=== PATIENT | male | born 1955 | race Caucasian/White ===

== ENCOUNTER 2016-12-22 00:13 | Observation (INO) | payer OTHER, MEDICARE ==
[2016-12-22] VITALS (10 sets, daily range): BP systolic 141–159; BP diastolic 62–70; PULSE 60–80; RESP 16–20; TEMP 98.4; O2SAT 94–99
[~2016-12-22] VITALS: Ht 167.6 cm; Wt 125.0 kg
[~2016-12-22 00:13] MED LIST: ASPI325T PO; FLUO10TA PO; GABA300C5 PO; IBUP-232 PO; METF500T PO; MORP1CAP63 PO; MULTTAB67 PO; NITR1SUB3 SL; OMEP20TA PO; PRAM0.5T PO; PRIN20TA2 PO; PROP20TA3 PO; SIMV80TA PO
[2016-12-22] MEDS ORDERED: MORP1TAB26 PO (00:28)
[2016-12-22] MEDS ORDERED: MORP1TAB24 PO (00:28)
[2016-12-22] MEDS ORDERED: MORP1TAB25 PO (00:28)
--- NOTE | 2016-12-22 00:44 | PD ---
HPI . Chest pain Chief Complaint: Chest Pain Time Seen by Provider: 00:15 Travel History International Travel<30 days: No Contact w/Intl Traveler<30days: No Traveled to known affect area: No History of Present Illness HPI Presents with chest pain that started about 6 PM. It has waxed and waned. He states that it seemed to occur every time he got up to go to the bathroom and then resolved or improved every time he got back to the couch. He denies any associated symptoms such as diaphoresis, nausea but is of breath. He used 3 old nitroglycerin at home with no relief. He was given one nitroglycerin by EMS and is now pain-free. PFSH Past Medical History Depression: Yes ("WITH PSYCHOTIC FEATURES") Heart Rhythm Problems: No Cardiac Catheterization: Yes (4 CATH, 5 STENTS) Cardiovascular Problems: Yes High Cholesterol: Yes Congestive Heart Failure: No Coronary Artery Disease: Yes Diabetes: Yes (PRE DIABETIC) Patient Takes Glucophage: Yes Diminished Hearing: No GERD: Yes Hypertension: Yes Musculoskeletal: Yes (LUMBAR DEGENERATIVE DISC DISEASE/RADICULOPATHY) Myocardial Infarction: Yes Tetanus Vaccination: < 5 Years Past Surgical History Coronary Artery Bypass Graft: No Coronary Stent: Yes (X5) Tonsillectomy: Yes Other Surgery: Yes (back sx) Family History Family Myocardial Infarction: No Social History Alcohol Use: No Tobacco Use: No (QUIT 8 YEARS AGO; SMOKED 3PPD X 40 YEARS) Substance Use: Yes (ETOH abuse in the past, hasn't drank in 20 yrs) Allergies-Medications (Allergen,Severity, Reaction): Coded Allergies: No Known Allergies (Unverified , 12/22/16) Reported Meds & Prescriptions Reported Meds & Active Scripts Active Pramipexole (Pramipexole Dihydrochloride) 0.5 Mg Tab 0.5 Mg PO BID Gabapentin 300 Mg Cap 300 Mg PO TID Fluoxetine (Fluoxetine HCl) 10 Mg Tab 10 Mg PO DAILY Simvastatin 80 Mg Tab 80 Mg PO HS Prinivil (Lisinopril) 20 Mg Tab 20 Mg PO BID Omeprazole 20 Mg Tab 40 Mg PO DAILY Metformin (Metformin HCl) 500 Mg Tab 500 Mg PO DAILY With a meal Reported Morphine ER (Morphine Sulfate) 15 Mg Tab 15 Mg PO HS Morphine ER (Morphine Sulfate) 30 Mg Tab 30 Mg PO AC BREAKFAST Nitroglycerin SL (Nitroglycerin) 0.4 Mg Subl 0.4 Mg SL DIRECTED PRN ONE TABLET UNDER THE TONGUE NEEDED FOR CHEST PAIN, MAY REPEAT EVERY FIVE MINUTES FOR A TOTAL OF 3 DOSES OR CALL 911 IF NO RELIEF Multiple Vitamin 1 Tab 1 Tab PO DAILY Ibuprofen 600 Mg Tab 600 Mg PO TID Aspirin 325 Mg Tab 325 Mg PO DAILY Review of Systems Except as stated in HPI: all other systems reviewed are Neg General / Constitutional: Positive: Other (no diaphoresis) Cardiovascular: Positive: Chest Pain or Discomfort Respiratory: No: Shortness of Breath Gastrointestinal: No: Nausea, Vomiting Physical Exam Narrative GENERAL: Healthy-appearing man who is currently in no acute distress. SKIN: Warm and dry. HEAD: Atraumatic. Normocephalic. EYES: Pupils equal and round. ENT: No nasal bleeding or discharge. Mucous membranes pink and moist. NECK: Trachea midline. Neck is supple. CARDIOVASCULAR: Regular rate and rhythm. He does have a systolic ejection murmur. RESPIRATORY: No accessory muscle use. Lungs are clear with full air movement throughout. GASTROINTESTINAL: Abdomen soft, non-tender, nondistended. MUSCULOSKELETAL: No obvious deformities. No edema. NEUROLOGICAL: Awake and alert. No obvious cranial nerve deficits. Motor grossly within normal limits. Normal speech. PSYCHIATRIC: Appropriate mood and affect; insight and judgment normal. Data Data Last Documented VS Vital Signs Date Time Temp Pulse Resp B/P Pulse Ox O2 Delivery O2 Flow Rate FiO2 12/22/16 00:52 68 18 156/62 99 Nasal Cannula 2 12/22/16 00:18 98.4 Orders Basic Metabolic Panel (Bmp) (12/22/16 00:34) Ckmb (Isoenzyme) Profile (12/22/16 00:34) Complete Blood Count With Diff (12/22/16 00:34) Magnesium (Mg) (12/22/16 00:34) Prothrombin Time / Inr (Pt) (12/22/16 00:34) Act Partial Throm Time (Ptt) (12/22/16 00:34) Troponin I (12/22/16 00:34) Chest, Single Ap (12/22/16 00:34) Ecg Monitoring (12/22/16 00:34) Bilateral Bp Monitoring (12/22/16 00:34) Iv Access Insert/Monitor (12/22/16 00:34) Oximetry (12/22/16 00:34) Oxygen Administration (12/22/16 00:34) Nitroglycerin 2% Oint (Nitroglycerin 2% (12/22/16 00:45) Sodium Chloride 0.9% Flush (Ns Flush) (12/22/16 00:45) CKMB (12/22/16 00:48) CKMB% (12/22/16 00:48) Admit Order (Ed Use Only) (12/22/16 ) Orderly / Telemetry (12/22/16 01:58) Electrocardiogram (12/22/16 01:00) Electrocardiogram (12/22/16 07:00) ^ Saline Lock (12/22/16 01:58) Resp Oxygen Karsten C Titrat 1-4 L (12/22/16 ) ^ Notify Dr: Other (12/22/16 01:58) Sodium Chloride 0.9% Flush (Ns Flush) (12/22/16 09:00) Sodium Chloride 0.9% Flush (Ns Flush) (12/22/16 02:00) Labs Laboratory Tests Test 12/22/16 00:48 White Blood Count 8.8 TH/MM3 Red Blood Count 3.89 MIL/MM3 Hemoglobin 11.4 GM/DL Hematocrit 33.5 % Mean Corpuscular Volume 86.2 FL Mean Corpuscular Hemoglobin 29.4 PG Mean Corpuscular Hemoglobin 34.1 % Concent Red Cell Distribution Width 13.9 % Platelet Count 259 TH/MM3 Mean Platelet Volume 8.0 FL Neutrophils (%) (Auto) 75.7 % Lymphocytes (%) (Auto) 15.1 % Monocytes (%) (Auto) 6.5 % Eosinophils (%) (Auto) 2.3 % Basophils (%) (Auto) 0.4 % Neutrophils # (Auto) 6.7 TH/MM3 Lymphocytes # (Auto) 1.3 TH/MM3 Monocytes # (Auto) 0.6 TH/MM3 Eosinophils # (Auto) 0.2 TH/MM3 Basophils # (Auto) 0.0 TH/MM3 CBC Comment DIFF FINAL Differential Comment Prothrombin Time 11.3 SEC Prothromb Time International 1.0 RATIO Ratio Activated Partial 22.2 SEC Thromboplast Time Sodium Level 136 MEQ/L Potassium Level 4.0 MEQ/L Chloride Level 100 MEQ/L Carbon Dioxide Level 29.7 MEQ/L Anion Gap 6 MEQ/L Blood Urea Nitrogen 11 MG/DL Creatinine 1.01 MG/DL Estimat Glomerular Filtration 75 ML/MIN Rate Random Glucose 110 MG/DL Calcium Level 8.7 MG/DL Magnesium Level 2.0 MG/DL Total Creatine Kinase 147 U/L Troponin I LESS THAN 0.02 NG/ML MDM Medical Decision Making Medical Screen Exam Complete: Yes Emergency Medical Condition: Yes Medical Record Reviewed: Yes (patient was evaluated here in 2012 at the chest pain center. He has a known history of coronary artery disease and has 4 stents.) Interpretation(s) EKG shows a sinus rhythm with a ventricular rate of 68. No ST segment elevation or depression. Differential Diagnosis Differential diagnosis of chest pain includes but is not limited to musculoskeletal pain, pulmonary embolism, acute coronary syndrome, pneumonia, pleurisy Narrative Course Patient presents for evaluation of chest pain. The chest pain was completely resolved with a single sublingual nitroglycerin. Patient has known coronary artery disease. CBC & BMP Diagram 12/22/16 00:48 Troponin is less than 0.02. Total CK is 147. Chest x-ray is negative for acute process. Critical Care Narrative Aggregate critical care time was 45 minutes. Time to perform other separately billable procedures was not included in the critical care time. My time did not include minutes spent treating any other patients simultaneously or on activities that did not directly contribute to the patient's treatment. The services I provided to this patient were to treat and/or prevent clinically significant deterioration due to cardiac dysrhythmia, cardiac disability I provided critical care services requiring my management, as noted below: Chart data review, documentation time, medication orders and management, vital sign assessments/reviewing monitor data, ordering and reviewing lab tests, ordering and interpreting/reviewing x-rays and diagnostic studies, care of the patient and discussion of the patient with the admitting physicians Diagnosis Primary Impression: Chest pain Qualified Code: R07.9 - Chest pain, unspecified type Admitting Information Admitting Physician Requests: Observation Condition: Stable Ivy Martin MD Dec 22, 2016 00:44
[2016-12-22] MEDS ORDERED: SODIUM CHLORIDE 0.9% FLUSH 5 ML FLUSH IVF PRN ×2 (00:45→02:00)
[2016-12-22] MEDS ORDERED: NITROGLYCERIN 2% OINT 1 GM PACKET TOP ONE (00:45)
[2016-12-22 00:52] LABS: AUTOMATED NEUTROPHIL # 6.7 TH/MM3 (1.8-7.7); BASOPHIL % 0.4 % (0.0-2.0); EOSINOPHIL # 0.2 TH/MM3 (0-0.4); EOSINOPHIL % 2.3 % (0.0-4.0); HEMATOCRIT 33.5 % (39.0-51.0); HEMO FLAGS DIFF FINAL; LYMPH % 15.1 % (9.0-44.0); LYMPHOCYTE # 1.3 TH/MM3 (1.0-4.8); MEAN CELL VOLUME 86.2 FL (80.0-100.0); MEAN CORPUSCULAR HEMOGLOBIN 29.4 PG (27.0-34.0); MEAN CORPUSCULAR HGB CONC 34.1 % (32.0-36.0); MONO % 6.5 % (0.0-8.0); NEUT % 75.7 % (16.0-70.0); PLATELET COUNT 259 TH/MM3 (150-450); RED BLOOD COUNT 3.89 MIL/MM3 (4.50-5.90); RED CELL DISTRIBUTION WIDTH 13.9 % (11.6-17.2); WHITE BLOOD COUNT 8.8 TH/MM3 (4.0-11.0)
--- NOTE | 2016-12-22 01:02 | RADRPT ---
EXAM DATE/TIME: 12/22/2016 00:34 [facility] COMPARISON: CHEST SINGLE AP, September 22, 2013, 10:17. INDICATIONS : Chest pain. MEDICAL HISTORY : Myocardial infarction. SURGICAL HISTORY : Coronary artery stent. ENCOUNTER: Initial ACUITY: 1 day PAIN SCORE: 6/10 LOCATION: Bilateral chest FINDINGS: The cardiac silhouette is enlarged in transverse diameter. The lungs are free of acute parenchymal op acity. No effusions are identified. Osseous structures are intact. CONCLUSION: Cardiomegaly. No acute cardiopulmonary disease. Chalo Garduno MD on December 22, 2016 at 1:00 Board Certified Radiologist. This report was verified electronically.
[2016-12-22 01:14] LABS: APTT (PATIENT) 22.2 SEC (24.3-30.1); PROTHROMBIN TIME - PATIENT 11.3 SEC (9.8-11.6)
[2016-12-22 01:20] LABS: ANION GAP 6 MEQ/L (5-15); BICARBONATE 29.7 MEQ/L (21.0-32.0); BLOOD UREA NITROGEN 11 MG/DL (7-18); CHLORIDE 100 MEQ/L (98-107); GLOMERULAR FILTRATION RATE 75 ML/MIN (>89); SODIUM (NA) 136 MEQ/L (136-145)
[2016-12-22 01:24] LABS: CREATINE KINASE 147 U/L (39-308)
[2016-12-22 02:20] LABS: CKMB 2.8 NG/ML (0.5-3.6)
[2016-12-22 06:36] LABS: CREATINE KINASE 143 U/L (39-308)
[2016-12-22 06:48] LABS: CKMB 2.5 NG/ML (0.5-3.6)
[2016-12-22] MEDS ORDERED: SODIUM CHLORIDE 0.9% FLUSH 5 ML FLUSH IVF SCH (09:00)
[2016-12-22] MEDS ORDERED: GLUCAGON 1 MG/ML VIAL IM/SQ PRN (09:15)
[2016-12-22] MEDS ORDERED: DEXTROSE 50% IN WATER 50 ML VIAL(D50) IV PRN (09:15)
[2016-12-22 09:28] LABS: CREATINE KINASE 157 U/L (39-308)
[2016-12-22] MEDS ORDERED: LIDOCAINE VISCOUS 2% SOLN 15 ML UDC PO ONE (09:30)
--- NOTE | 2016-12-22 09:31 | HHI.HP ---
HPI Primary Care Physician Nitesh Santos Chief Complaint Chest pain History of Present Illness This is a 61-year-old male that presents to the ED via [facility] with a complaint of chest discomfort. Began 6:00 last evening while watching television. This in the center of his chest. It radiates upwards into his throat area. It is worsened when he sits up and improves when he lies down. He tried Tums without relief. He tried nitroglycerin without relief. He had no associated shortness with nausea or diaphoresis. The pain is worse level is a 10 out of 10. Currently the pain is a 2 out of 10. He does have history of CAD. He states he had an FL 8 years ago while in [place]. He had 4 stents within [address] Jem pardo and last saw him about 4 months ago. He cannot recall his last stress test or heart catheterization. His symptoms do not feel similar to when he had a myocardial infarction. Review of Systems General: Patient denies fevers, chills recent, and recent travel HEENT: Patient denies headache, sore throat, difficulty swallowing. Cardiovascular: Has the chest discomfort as mentioned above. Denies sensation of heart beating rapidly or irregularly. Denies diaphoresis. No syncope. Respiratory: Denies shortness of breath or inspirational chest discomfort. Denies coughing wheezing or hemoptysis. GI: Patient denies nausea, vomiting, diarrhea, abdominal pain, bloody stools. Musculoskeletal: Patient denies joint pain or edema. Denies calf pain or edema. Planes of chronic back pain. Neurovascular: Patient denies numbness, tingling, weakness in extremities. Denies headache. Endocrine: Denies polyuria and polydipsia. Hematologic: Denies easy bruising. Skin: Denies rash or itching. Past Family Social History Allergies: Coded Allergies: No Known Allergies (Unverified , 12/22/16) Past Medical History CAD with a total of 4 stents 8 years ago. Hypertension, diabetes, hyperlipidemia, chronic back pain, obesity. He was a past smoker but quit 8 years ago. Past Surgical History Heart catheterizations with stenting. Bilateral total knee replacements. Right carpal tunnel release. Tonsillectomy and back surgeries. Reported Medications Reported Meds & Active Scripts Active Pramipexole (Pramipexole Dihydrochloride) 0.5 Mg Tab 0.5 Mg PO BID Gabapentin 300 Mg Cap 300 Mg PO TID Fluoxetine (Fluoxetine HCl) 10 Mg Tab 10 Mg PO DAILY Simvastatin 80 Mg Tab 80 Mg PO HS Prinivil (Lisinopril) 20 Mg Tab 20 Mg PO BID Omeprazole 20 Mg Tab 40 Mg PO DAILY Metformin (Metformin HCl) 500 Mg Tab 500 Mg PO DAILY With a meal Reported Morphine ER (Morphine Sulfate) 15 Mg Tab 15 Mg PO HS Morphine ER (Morphine Sulfate) 30 Mg Tab 30 Mg PO AC BREAKFAST Nitroglycerin SL (Nitroglycerin) 0.4 Mg Subl 0.4 Mg SL DIRECTED PRN ONE TABLET UNDER THE TONGUE NEEDED FOR CHEST PAIN, MAY REPEAT EVERY FIVE MINUTES FOR A TOTAL OF 3 DOSES OR CALL 911 IF NO RELIEF Multiple Vitamin 1 Tab 1 Tab PO DAILY Ibuprofen 600 Mg Tab 600 Mg PO TID Aspirin 325 Mg Tab 325 Mg PO DAILY Active Ordered Medications Current Medications Medications (Trade) Dose Ordered Sig/Paco Route Start Time Stop Time Status Last Admin (NS Flush) 2 ml UNSCH PRN IVF 12/22/16 00:45 (NS Flush) 2 ml BID IVF 12/22/16 09:00 12/22/16 08:51 (NS Flush) 2 ml UNSCH PRN IVF 12/22/16 02:00 (PROzac) 10 mg DAILY PO 12/22/16 09:15 UNV (Neurontin) 300 mg TID PO 12/22/16 13:00 UNV (Prinivil) 20 mg BID PO 12/22/16 09:15 UNV (Oramorph Sr) 15 mg HS PO 12/22/16 21:00 UNV (Protonix) 40 mg DAILY PO 12/22/16 09:15 UNV (Mirapex) 0.5 mg BID PO 12/22/16 09:15 UNV Non-Formulary Medication 80 mg HS PO 12/22/16 21:00 UNV (Aspirin) 325 mg DAILY PO 12/22/16 09:15 UNV (Xylocaine 2% Viscous) 10 ml STAT ONCE PO 12/22/16 09:30 12/22/16 09:31 ( Liq) 10 ml NOW ONCE PO 12/22/16 09:15 12/22/16 09:16 UNV (Mag-Al Plus Susp Liq) 30 ml STAT ONCE PO 12/22/16 09:15 12/22/16 09:16 UNV (D50w (Vial) Inj) 25 ml UNSCH PRN IV 12/22/16 09:15 UNV (Glucagon Inj) 1 mg UNSCH PRN IM/SQ 12/22/16 09:15 Family History His father had CAD. Social History He quit smoking 8 years ago but prior to that he smoked 2-3 packs of cigarettes a day for 25 years. He denies alcohol and illicit drugs. He has been for 43 years. He is disabled secondary to his back issues. Physical Exam Vital Signs Vital Signs Date Time Temp Pulse Resp B/P Pulse Ox O2 Delivery O2 Flow Rate FiO2 12/22/16 08:30 16 94 Room Air 12/22/16 05:14 60 17 154/70 97 Nasal Cannula 2 12/22/16 02:46 97 Nasal Cannula 2.00 12/22/16 02:00 71 18 156/62 97 Nasal Cannula 2 12/22/16 00:52 68 18 156/62 99 Nasal Cannula 2 12/22/16 00:42 18 97 Room Air 12/22/16 00:42 97 Nasal Cannula 2 12/22/16 00:22 69 18 96 Room Air 12/22/16 00:18 98.4 69 16 141/65 95 Physical Exam GENERAL: This is a well-nourished, well-developed patient, in no apparent distress. Patient speaks in clear complete sentences. Patient is pleasant. Patient is obese at 125 kg. HEENT: Head is atraumatic and normocephalic. Neck is supple without lymphadenopathy and trachea is midline. No JVD. There is a left carotid bruit. CARDIOVASCULAR: Regular rate and rhythm without gallops or rubs. There is grade 2 systolic murmur best heard left sternal border. RESPIRATORY: Clear to auscultation. Breath sounds equal bilaterally. No wheezes , rales, or rhonchi. Chest wall is nontender. No use of accessory muscles. GASTROINTESTINAL: Abdomen is nontender, nondistended. Abdomen soft. No obvious pulsatile mass or bruit. No CVA tenderness. Strong femoral pulses bilaterally. Normal bowel sounds in all quadrants. MUSCULOSKELETAL: Patient is moving upper and lower extremities freely. No calf tenderness or edema, no Homans sign. Strong pulses in upper and lower extremities. There is discomfort with movement of his lower back which is chronic. NEUROLOGICAL: Patient is alert and oriented. Cranial nerves 2-12 are grossly intact. No focal deficits and speech is clear. SKIN: No rash and turgor is normal. Laboratory Laboratory Tests Test 12/22/16 12/22/16 00:48 05:48 White Blood Count 8.8 Red Blood Count 3.89 Hemoglobin 11.4 Hematocrit 33.5 Mean Corpuscular Volume 86.2 Mean Corpuscular Hemoglobin 29.4 Mean Corpuscular Hemoglobin 34.1 Concent Red Cell Distribution Width 13.9 Platelet Count 259 Mean Platelet Volume 8.0 Neutrophils (%) (Auto) 75.7 Lymphocytes (%) (Auto) 15.1 Monocytes (%) (Auto) 6.5 Eosinophils (%) (Auto) 2.3 Basophils (%) (Auto) 0.4 Neutrophils # (Auto) 6.7 Lymphocytes # (Auto) 1.3 Monocytes # (Auto) 0.6 Eosinophils # (Auto) 0.2 Basophils # (Auto) 0.0 CBC Comment DIFF FINAL Differential Comment Prothrombin Time 11.3 Prothromb Time International 1.0 Ratio Activated Partial 22.2 Thromboplast Time Sodium Level 136 Potassium Level 4.0 Chloride Level 100 Carbon Dioxide Level 29.7 Anion Gap 6 Blood Urea Nitrogen 11 Creatinine 1.01 Estimat Glomerular Filtration 75 Rate Random Glucose 110 Calcium Level 8.7 Magnesium Level 2.0 Total Creatine Kinase 147 143 Creatine Kinase MB 2.8 2.5 Troponin I LESS THAN 0.02 LESS THAN 0.02 Result Diagram: 12/22/16 0048 12/22/16 0048 Imaging Last Impressions Chest X-Ray 12/22/16 0034 Signed Impressions: Service Date/Time: Thursday, December 22, 2016 00:34 - CONCLUSION: Cardiomegaly. No acute cardiopulmonary disease. Chalo Garduno MD Course EKGs have sinus rhythm without significant ST segment depressions or elevations. Assessment and Plan Assessment and Plan * Chest pain: Patient had serial cardiac enzymes and EKGs for ruling out purposes. He will be seen by Dr. Monzon of cardiology and the chest pain center. He will undergo a Lexiscan. He'll be discharged home with instructions to follow-up with his physicians if his stress test were to be nonischemic. * CAD: Patient states he had an FL 8 years ago. He states he has 4 cardiac stents. This will be reassessed for stress testing. He will need to continue his medications and follow-up with Dr. Parish. * Hypertension: Continue current medication. * Hyperlipidemia: Continue current medications. * Diabetes: Hold metformin at this time. He'll be covered with sliding scale coverage. He will need to follow diabetic and resume his medication discharge. * Chronic back pain: Continue current medication and follow-up with his PCP. * Obesity: Patient has been counseled on the importance of smoking cessation. Juan Sidhu Dec 22, 2016 09:31
[2016-12-22 09:41] LABS: CKMB 2.4 NG/ML (0.5-3.6)
[2016-12-22] MEDS ORDERED: ATROPINE/SCOPOLAM/HYOSCYAM/PB ELIXIR 10 ML CUP PO ONE (10:00)
[2016-12-22] MEDS ORDERED: PRAMIPEXOLE DIHYDROCHLORIDE 0.25 MG TAB PO SCH (10:00)
[2016-12-22] MEDS ORDERED: LISINOPRIL 20 MG TAB PO SCH (10:00)
[2016-12-22] MEDS ORDERED: ASPIRIN 325 MG TAB PO SCH (10:00)
[2016-12-22] MEDS ORDERED: ALUMINUM/MAGNESIUM/SIMETH 30 ML CUP PO ONE (10:00)
[2016-12-22] MEDS ORDERED: PANTOPRAZOLE SOD 40 MG DELAYED RELEASE TAB PO SCH (10:00)
[2016-12-22] MEDS ORDERED: FLUoxetine HCL 10 MG CAP PO SCH (10:00)
[2016-12-22] MEDS ORDERED: INSULIN ASPART SUPPLEMENTAL SCALE SQ SCH (11:00)
[2016-12-22] MEDS ORDERED: REGADENOSON INJ 0.4 MG/5 ML SYR ONE (11:53)
[2016-12-22] MEDS ORDERED: GABAPENTIN 300 MG CAP PO SCH (13:00)
--- NOTE | 2016-12-22 13:03 | RADRPT ---
EXAM DATE/TIME: 12/22/2016 11:19 [facility] COMPARISON: MYOCARDIAL PERF PHARM SPECT, GATED W/EF, September 23, 2013, 9:14. INDICATIONS : Mid chest pain for one day. Angina. DOSE: 35.0 mCi Tc99m Myoview at stress. 11.0 mCi Tc99m Myoview at rest. 0.4 mg Lexiscan STRESS SYMPTOMS: None. EJECTION FRACTION: 60% MEDICAL HISTORY : Cardiovascular disease. Hypertension. Gastroesophageal reflux disease. SURGICAL HISTORY : Coronary artery stent. Tonsillectomy. ENCOUNTER: Initial ACUITY: 1 day PAIN SCALE: 5/10 LOCATION: Midsternal chest TECHNIQUE: The patient underwent pharmacologic stress with infusion of prescribed dose. Continuous ECG tracing was monitored during stress. Gated SPECT imaging was performed after stress and conventional SPECT i maging was performed at rest. The examination was performed on a SPECT/CT scanner, both attenuation and non-corrected datasets were reviewed. FINDINGS: DISTRIBUTION: The maximum perfused segment at stress is in the lateral wall. PERFUSION STUDY: The pattern of perfusion at stress is within normal limits. GATED STUDY: There is intact wall motion and thickening without hypokinetic or dyskinetic segments. CONCLUSION: No reversible perfusion defects. No focal wall motion abnormalities. Ejection fraction within normal limits. RISK CATEGORY: 1- Low Risk. Shiv Mesa MD on December 22, 2016 at 12:54 Board Certified Radiologist. This report was verified electronically.
--- NOTE | 2016-12-22 14:19 | EKG ---
Date Performed: 12/22/2016 Time Performed: 05:42:19 PTAGE: 61 years EKG: Sinus rhythm Compared to previous tracing, T wave changes have improved NORMAL ECG PREVIOUS TRACING : 12/22/2016 00.22 DOCTOR: Ritchie Monzon Interpretating Date/Time 12/22/2016 15:20:56
--- NOTE | 2016-12-22 14:19 | EKG ---
Date Performed: 12/22/2016 Time Performed: 00:22:06 PTAGE: 61 years EKG: Sinus rhythm NONSPECIFIC T-WAVE ABNORMALITY Compared to previous tracing, slight T wave changes are new. BORDERLI NE ECG PREVIOUS TRACING : 03/01/2016 11.13 DOCTOR: Ritchie Monzon Interpretating Date/Time 12/22/2016 15:20:38
--- NOTE | 2016-12-22 14:49 | HHI.DCPOC ---
Discharge Care Plan Diagnosis: (1) Chest pain (2) Coronary artery disease (3) H/O heart artery stent (4) Hypertension (5) Hyperlipidemia (6) DM (diabetes mellitus) (7) HTN (hypertension) (8) Hyperlipidemia (9) Chronic back pain (10) Obesity Goals to Promote Your Health * To prevent worsening of your condition and complications * To maintain your health at the optimal level Directions to Meet Your Goals Take your medications as prescribed Follow your dietary instruction Follow activity as directed Keep your appointments as scheduled Take your immunizations and boosters as scheduled If your symptoms worsen call your PCP, if no PCP go to Urgent Care Center or Emergency Room Smoking is Dangerous to Your Health. Avoid second hand smoke Call the 24-hour hour crisis hotline for domestic abuse at Juan Sidhu Dec 22, 2016 14:49
[2016-12-22] MEDS ORDERED: PRAVASTATIN SOD 80 MG TAB PO SCH (21:00)
[2016-12-22] MEDS ORDERED: MORPHINE SULFATE 15 MG CONTROLLED RELEASE TAB PO SCH (21:00)
[2016-12-23] MEDS ORDERED: MORPHINE SULFATE 30 MG CONTROLLED RELEASE TAB PO SCH (07:00)
--- NOTE | 2016-12-23 14:43 | EKG ---
Date Performed: 12/22/2016 Time Performed: 08:35:08 PTAGE: 61 years EKG: Sinus rhythm NORMAL ECG PREVIOUS TRACING : 12/22/2016 05.42 DOCTOR: Alexis Parekh Interpretating Date/Time 12/23/2016 14:36:43
--- NOTE | 2016-12-24 12:33 | TR ---
Date Performed: 12/22/2016 Time Performed: 11:56:56 DOCTOR: Deepika Mota DRUG LIST: CLINICAL HISTORY: ANGINA REASON FOR TEST: Angina REASON FOR ENDING: OBSERVATION: CONCLUSION: Lexiscan stress test was performed under standard four minute protocol. Radionuclid e was injected one minute prior to ending the test. No electrocardiographic abormalities were present to suggest ischemia. Nuclear imaging and interpretation are pending. COMMENTS:
[2017-01-02] MEDS ORDERED: OMEP20TA PO (16:58)
[2017-01-02] MEDS ORDERED: METF500T PO (16:58)
[2017-02-12] MEDS ORDERED: PRIN20TA2 PO (14:50)
[2017-03-04] MEDS ORDERED: NABU1TAB37 PO (10:08)
[2017-03-04] MEDS ORDERED: GABA300C5 PO (10:08)
[2017-03-04] MEDS ORDERED: METF500T PO (10:08)
[2017-03-11] MEDS ORDERED: LANCETS1 MI1 (09:02)
[2017-03-11] MEDS ORDERED: GLUCTES27 (09:02)
[2017-04-02] MEDS ORDERED: VENTAER INH (07:36)
[2017-04-11] MEDS ORDERED: HYDR25TA5 PO (10:43)
[2017-04-14] MEDS ORDERED: METO25TA3 PO (11:25)
== END 2016-12-22 15:33 | disposition home or self-care (01) ==
LOC: NEPC 00:13 → NEDA 02:03 → NEDH 06:11 → NEPFCDU 12:10
DX: R07.89 Other chest pain (principal); I25.10 Atherosclerotic heart disease of native coronary artery without angina pectoris; I11.9 Hypertensive heart disease without heart failure; E78.5 Hyperlipidemia, unspecified; E11.9 Type 2 diabetes mellitus without complications; E78.00 Pure hypercholesterolemia, unspecified; M54.9 Dorsalgia, unspecified; G89.29 Other chronic pain; I25.2 Old myocardial infarction; R94.31 Abnormal electrocardiogram [ECG] [EKG]; K21.9 Gastro-esophageal reflux disease without esophagitis; E66.9 Obesity, unspecified; F17.200 Nicotine dependence, unspecified, uncomplicated; Z95.5 Presence of coronary angioplasty implant and graft; Z96.653 Presence of artificial knee joint, bilateral
CPT/HCPCS: 71010; 78452; 80048; 82550; 82552; 83735; 84484; 85025; 85610; 85730; 93005; 93017; 99291; A9502; G0378; J2785

== ENCOUNTER 2017-05-22 01:27 | Emergency (ER) | payer OTHER, MEDICARE ==
[~2017-05-22 01:27] MED LIST changes: +GLUCTES27; +HYDR25TA5 PO; -IBUP-232 PO; +LANCETS1 MI1; +METO25TA3 PO; -MORP1CAP63 PO; +MORP1TAB24 PO; +MORP1TAB25 PO; +NABU1TAB37 PO; -PROP20TA3 PO; +VENTAER INH
[2017-05-22 01:36] VITALS: BP 201/91; PULSE 103; RESP 16; TEMP 98.1; O2SAT 98
[2017-05-22 02:49] VITALS: BP 155/78; PULSE 77; RESP 20; O2SAT 97
--- NOTE | 2017-05-22 03:48 | PD ---
HPI Chief Complaint: Cardiac Complaint Time Seen by Provider: 03:43 Travel History International Travel<30 days: No Contact w/Intl Traveler<30days: No Traveled to known affect area: No History of Present Illness HPI Patient is a 61-year-old male who presents to emergency room with complaints of hypertension. He reports that he takes lisinopril, metoprolol, hydrochlorothiazide for his blood pressure. he reports that he did not take his nightly dose of metoprolol her hydrochlorothiazide today. 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 Patient went to check his blood pressure at home today with his cuff and noted that his blood pressure was high. Patient with no complaints denies headache or dizziness. Patient denies any vision changes. Denies chest pain or shortness of breath. Patient with no other complaints at this time. PFSH Past Medical History Arthritis: Yes Anxiety: Yes Depression: Yes ("WITH PSYCHOTIC FEATURES") Heart Rhythm Problems: No Cancer: No Cardiac Catheterization: Yes (4 CATH, 5 STENTS) Cardiovascular Problems: Yes High Cholesterol: Yes Congestive Heart Failure: No Coronary Artery Disease: Yes Diabetes: Yes Patient Takes Glucophage: Yes Diminished Hearing: No Endocrine: Yes GERD: Yes Genitourinary: No Hypertension: Yes Immune Disorder: No Implanted Vascular Access Dvce: Yes Musculoskeletal: Yes (LUMBAR DEGENERATIVE DISC DISEASE/RADICULOPATHY) Neurologic: No Psychiatric: Yes Reproductive: No Respiratory: Yes Myocardial Infarction: Yes Seizures: No Thyroid Disease: No Past Surgical History Coronary Artery Bypass Graft: No Coronary Stent: Yes (X5) Joint Replacement: Yes (bilat knees ) Tonsillectomy: Yes Other Surgery: Yes (back sx) Social History Alcohol Use: No Tobacco Use: No (STARTED BACK UP APRIL 2017) Substance Use: No Allergies-Medications (Allergen,Severity, Reaction): Coded Allergies: No Known Allergies (Unverified , 05/12/17) Reported Meds & Prescriptions Reported Meds & Active Scripts Active Metoprolol Tartrate 25 Mg Tab 25 Mg PO HS Hydrochlorothiazide 25 Mg Tab 25 Mg PO DAILY Ventolin Hfa 18 GM Inh (Albuterol Sulfate) 90 Mcg/Act Aer 2 Puff INH Q4-6H PRN Bianca Contour Next Blood Test Strips (Blood Glucose Test Strips) 1 Madison Madison 1 Strip .ROUTE TID Lancets 1 Mis Mis 1 Ea .ROUTE DIRECTED Metformin (Metformin HCl) 500 Mg Tab 500 Mg PO BID With a meal Gabapentin 300 Mg Cap 300 Mg PO TID Prinivil (Lisinopril) 20 Mg Tab 20 Mg PO BID Omeprazole 20 Mg Tab 40 Mg PO DAILY Pramipexole (Pramipexole Dihydrochloride) 0.5 Mg Tab 0.5 Mg PO BID Fluoxetine (Fluoxetine HCl) 10 Mg Tab 10 Mg PO DAILY Simvastatin 80 Mg Tab 80 Mg PO HS Reported Nabumetone 500 Mg Tab 500 Mg PO BID Morphine ER (Morphine Sulfate) 15 Mg Tab 15 Mg PO HS Morphine ER (Morphine Sulfate) 30 Mg Tab 30 Mg PO AC BREAKFAST Nitroglycerin SL (Nitroglycerin) 0.4 Mg Subl 0.4 Mg SL DIRECTED PRN ONE TABLET UNDER THE TONGUE NEEDED FOR CHEST PAIN, MAY REPEAT EVERY FIVE MINUTES FOR A TOTAL OF 3 DOSES OR CALL 911 IF NO RELIEF Multiple Vitamin 1 Tab 1 Tab PO DAILY Aspirin 325 Mg Tab 325 Mg PO DAILY Review of Systems General / Constitutional: No: Fever Eyes: No: Visual changes HENT: No: Headaches Cardiovascular: No: Chest Pain or Discomfort Respiratory: No: Shortness of Breath Gastrointestinal: No: Abdominal Pain Genitourinary: No: Dysuria Musculoskeletal: No: Pain Skin: No Rash Neurologic: No: Weakness Psychiatric: No: Depression Endocrine: No: Polydipsia Hematologic/Lymphatic: No: Easy Bruising Physical Exam Narrative GENERAL: No acute distress, nontoxic SKIN: Focused skin assessment warm/dry. HEAD: Atraumatic. Normocephalic. EYES: Pupils equal and round. No scleral icterus. No injection or drainage. ENT: No nasal bleeding or discharge. Mucous membranes pink and moist. NECK: Trachea midline. No JVD. CARDIOVASCULAR: Regular rate and rhythm. No murmur appreciated. RESPIRATORY: No accessory muscle use. Clear to auscultation. Breath sounds equal bilaterally. GASTROINTESTINAL: Abdomen soft, non-tender, nondistended. Hepatic and splenic margins not palpable. MUSCULOSKELETAL: No obvious deformities. No clubbing. No cyanosis. No edema. NEUROLOGICAL: Awake and alert. No obvious cranial nerve deficits. Motor grossly within normal limits. Normal speech. PSYCHIATRIC: Appropriate mood and affect; insight and judgment normal. Data Data Last Documented VS Vital Signs Date Time Temp Pulse Resp B/P Pulse Ox O2 Delivery O2 Flow Rate FiO2 7/20/17 02:49 77 20 155/78 97 Room Air 05/22/17 01:36 98.1 Orders Metoprolol Tartrate (Lopressor) (05/22/17 04:00) MDM Medical Decision Making Medical Screen Exam Complete: Yes Emergency Medical Condition: Yes Interpretation(s) Vital Signs Date Time Temp Pulse Resp B/P Pulse Ox O2 Delivery O2 Flow Rate FiO2 05/22/17 02:49 77 20 155/78 97 Room Air 05/22/17 01:36 98.1 103 16 201/91 98 Room Air Differential Diagnosis Differential includes hypertensive emergency, hypertensive urgency, hypertension , medication noncompliance Narrative Course 61-year-old male who presents to emergency room with complaints of asymptomatic hypertension. Patient's initial blood pressure in triage was 201/91. Patient' s repeat blood pressure is 155/78. Patient is completely asymptomatic at this time. Patient with no complaints. We'll give patient his nightly dose of metoprolol. 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 Signs and symptoms of when to return to ER was reviewed with patient in detail. Diagnosis Primary Impression: Hypertension Qualified Code: I10 - Hypertension, unspecified type Patient Instructions: General Instructions Additional Instructions: Please take all medications as prescribed Return to the emergency room as needed Disposition: 01 DISCHARGE HOME Condition: Stable Malou Bateman DO May 22, 2017 03:48
[2017-05-22] MEDS ORDERED: METOPROLOL TARTRATE 25 MG TAB PO ONE (04:00)
[2017-06-02] MEDS ORDERED: FLUO10TA PO (10:23)
[2017-06-02] MEDS ORDERED: VARE1PAK3 PO (10:55)
[2017-06-02] MEDS ORDERED: METO25TA6 PO (10:55)
[2017-06-02] MEDS ORDERED: FLUO20CA12 PO (13:29)
== END 2017-05-22 04:03 | disposition home or self-care (01) ==
LOC: NEPC 01:27
DX: I10 Essential (primary) hypertension (principal); Z72.0 Tobacco use
CPT/HCPCS: 99283

== ENCOUNTER 2017-07-13 13:19 | Inpatient (IN) | payer OTHER, MEDICARE ==
[~2017-07-13] VITALS: Ht 177.8 cm; Wt 100.0 kg
[2017-07-13] VITALS (19 sets, daily range): BP systolic 107–166; BP diastolic 57–84; PULSE 85–138; RESP 20–34; TEMP 97.9–99.6; O2SAT 89–100
[~2017-07-13 13:19] MED LIST changes: +BROMSYP PO; +CYCL5TAB PO; +DIPH1TAB4 PO; -FLUO10TA PO; +FLUO20CA12 PO; +FLUT50SP EACH NARE; -GABA300C5 PO; -HYDR25TA5 PO; -METO25TA3 PO; +METO25TA6 PO; -MORP1TAB24 PO; -MORP1TAB25 PO; -NABU1TAB37 PO; -OMEP20TA PO; +OMEP40CA2 PO; +OXYC1TAB63 PO; +PRED10PA PO; +RANI1TAB5 PO; +SERO25TA PO; +TOPI1TAB36 PO; +VARE1PAK3 PO
[2017-07-13] MEDS ORDERED: methylPREDNISolone SOD SUCC 125 MG/2 ML VIAL IVP ONE (13:30)
[2017-07-13] MEDS ORDERED: SODIUM CHLORIDE 0.9% FLUSH 10 ML FLUSH IVF PRN (13:30)
--- NOTE | 2017-07-13 13:32 | PD ---
HPI Chief Complaint: trouble breathing Time Seen by Provider: 13:23 Travel History International Travel<30 days: No Contact w/Intl Traveler<30days: No History of Present Illness HPI Is a 61-year-old man who presents to the emergency department complaining of cough and shortness of breath. He states for the past several days had increased cough cold symptoms, productive of thick phlegm, with increased shortness of breath and difficulty breathing. He is a history of tobacco use in the past. He uses an inhaler as needed, but denies any history of COPD. He endorses fevers and subjective chills. Denies any chest pain. No leg swelling. No other complaints. History is a little bit limited due to patient' s moderate respiratory distress. History Past Medical History Narrative Medical Per patient and medical record: Hypertension Hyperlipidemia CAD Patient denies diabetes but has charted diabetes/prediabetes Anxiety Dementia Obesity Social History Alcohol Use: No Tobacco Use: No (STARTED BACK UP APRIL 2017) Allergies-Medications (Allergen,Severity, Reaction): Coded Allergies: duloxetine (Verified Adverse Reaction, Severe, Confusion, 07/13/17) Reported Meds & Prescriptions Reported Meds & Active Scripts Active Fluticasone Nasal [place] 50 Mcg/Act Naspr 100 Mcg EACH NARE BID 50 mcg/spray Bromfed DM Liq (Yqfczxmschdestv-Eglzvbfqantnpve-QK Liq) 30-2-10 Mg/5 Ml Syrp 5 Ml PO Q6H PRN Fluoxetine (Fluoxetine HCl) 20 Mg Capsule 20 Mg PO DAILY Metoprolol Succinate ER 24 HR (Metoprolol Succinate) 25 Mg Tab 25 Mg PO DAILY Ventolin Hfa 18 GM Inh (Albuterol Sulfate) 90 Mcg/Act Aer 2 Puff INH Q4-6H PRN Bianca Contour Next Blood Test Strips (Blood Glucose Test Strips) 1 Madison Madison 1 Strip .ROUTE TID Lancets 1 Mis Mis 1 Ea .ROUTE DIRECTED Metformin (Metformin HCl) 500 Mg Tab 500 Mg PO BID With a meal Prinivil (Lisinopril) 20 Mg Tab 20 Mg PO BID Pramipexole (Pramipexole Dihydrochloride) 0.5 Mg Tab 0.5 Mg PO BID Simvastatin 80 Mg Tab 80 Mg PO HS Reported Oxycodone-Acetaminophen 5-325 mg Tab 1 Tab PO Q4H PRN Flexeril (Cyclobenzaprine HCl) 5 Mg Tab 5 Mg PO TID Ranitidine 75 (Ranitidine HCl) 75 Mg Tab 75 Mg PO DAILY Take 30 to 60 minutes before eating food or drinking beverages that cause heartburn. Sleep Aid (Diphenhydramine HCl (Sleep)) 25 Mg Tab 25 Mg PO HS Seroquel (Quetiapine Fumarate) 25 Mg Tab 25 Mg PO HS Topiramate 50 Mg Tab 75 Mg PO BID Omeprazole 40 Mg Cap 40 Mg PO DAILY Nitroglycerin SL (Nitroglycerin) 0.4 Mg Subl 0.4 Mg SL DIRECTED PRN ONE TABLET UNDER THE TONGUE NEEDED FOR CHEST PAIN, MAY REPEAT EVERY FIVE MINUTES FOR A TOTAL OF 3 DOSES OR CALL 911 IF NO RELIEF Multiple Vitamin 1 Tab 1 Tab PO DAILY Aspirin 325 Mg Tab 325 Mg PO DAILY Review of Systems ROS Limitations: Clinical Condition Except as stated in HPI: all other systems reviewed are Neg Physical Exam Narrative GENERAL: 60 year-old woman, obese, moderate respiratory distress with rapid heavy breathing, appears anxious. SKIN: Little bit mottled particularly on the abdomen. HEAD: Atraumatic. Normocephalic. EYES: Pupils equal and round. No scleral icterus. No injection or drainage. ENT: No nasal bleeding or discharge. Mucous membranes pink and moist. NECK: Trachea midline. No JVD. CARDIOVASCULAR: Regular rate and rhythm. No murmur appreciated. RESPIRATORY: Moderate respiratory distress. Coarse wet breathing. Diffuse rhonchi throughout both lung nam. GASTROINTESTINAL: Abdomen soft, non-tender, nondistended. Hepatic and splenic margins not palpable. MUSCULOSKELETAL: No obvious deformities. Significant edema. NEUROLOGICAL: Awake and alert. No obvious cranial nerve deficits. Motor grossly within normal limits. Normal speech. Data Data Last Documented VS Vital Signs Date Time Temp Pulse Resp B/P (MAP) Pulse Ox O2 Delivery O2 Flow Rate FiO2 07/13/17 15:50 100 100 07/13/17 15:31 133 20 128/60 (82) Ventilator 07/13/17 13:25 4.00 07/13/17 13:19 97.9 Orders Orders Complete Blood Count With Diff (07/13/17 13:23) Comprehensive Metabolic Panel (07/13/17 13:23) B-Type Natriuretic Peptide (07/13/17 13:23) Act Partial Throm Time (Ptt) (07/13/17 13:23) Prothrombin Time / Inr (Pt) (07/13/17 13:23) Troponin I (07/13/17 13:23) Arterial Blood Gas (Abg) (07/13/17 13:23) Urinalysis - C+S If Indicated (07/13/17 13:23) Iv Access Insert/Monitor (07/13/17 13:23) Electrocardiogram (07/13/17 13:23) Ecg Monitoring (07/13/17 13:) Oximetry (07/13/17:) Oxygen Administration (07/13/17 13:23) Chest, Single Ap (07/13/17 13:23) Sodium Chloride 0.9% Flush (Ns Flush) (07/13/17 13:30) Methylprednisolone So Succ Inj (Solumedr (07/13/17 13:30) Albuterol-Ipratropium Neb (Duoneb Neb) (07/13/17 13:30) Resp Bipap / Cpap Non Invas Vt (07/13/17 13:23) Lactic Acid Sepsis Protocol (07/13/17 13:30) Blood Culture (07/13/17 13:30) Ceftriaxone Inj (Rocephin Inj) (07/13/17 13:45) Azithromycin Inj (Zithromax Inj) (07/13/17 13:45) Sodium Chlor 0.9% 1000 Ml Inj (Ns 1000 M (07/13/17 14:30) Sodium Chlor 0.9% 1000 Ml Inj (Ns 1000 M (07/13/17 14:30) Lorazepam Inj (Ativan Inj) (07/13/17 14:30) Etomidate Inj (Amidate Inj) (07/13/17 14:40) Succinylcholine Inj (Quelicin Inj) (07/13/17 14:40) Propofol 1000 Mg/100 Ml Inj (Diprivan 10 (07/13/17 14:41) Ct Pulmonary Angiogram (07/13/17 ) Chest, Single Ap (07/13/17 ) Insert Ng Tube (07/13/17 14:57) Succinylcholine Inj (Quelicin Inj) (07/13/17 15:00) Etomidate Inj (Amidate Inj) (07/13/17 15:00) Propofol 1000 Mg/100 Ml Inj (Diprivan 10 (07/13/17 15:00) ^ Infusion (07/13/17 14:57) RASS (07/13/17 14:57) Neurological Rass Scale MASON.Q2H (07/13/17 14:57) Restraints Non-Violent MASON.Q3H (07/13/17 14:57) Sodium Chlor 0.9% 1000 Ml Inj (Ns 1000 M (07/13/17 15:15) Urinary Catheter Insert/Apply (07/13/17 15:11) Admit Order (Ed Use Only) (07/13/17 ) Labs Laboratory Tests Test 07/13/17 13:40 07/13/17 13:44 07/13/17 15:00 White Blood Count 28.6 TH/MM3 Red Blood Count 4.34 MIL/MM3 Hemoglobin 13.4 GM/DL Hematocrit 38.4 % Mean Corpuscular Volume 88.5 FL Mean Corpuscular Hemoglobin 30.8 PG Mean Corpuscular Hemoglobin Concent 34.8 % Red Cell Distribution Width 14.3 % Platelet Count 324 TH/MM3 Mean Platelet Volume 8.5 FL Neutrophils (%) (Auto) 92.1 % Lymphocytes (%) (Auto) 2.0 % Monocytes (%) (Auto) 5.8 % Eosinophils (%) (Auto) 0.0 % Basophils (%) (Auto) 0.1 % Neutrophils # (Auto) 26.4 TH/MM3 Lymphocytes # (Auto) 0.6 TH/MM3 Monocytes # (Auto) 1.7 TH/MM3 Eosinophils # (Auto) 0.0 TH/MM3 Basophils # (Auto) 0.0 TH/MM3 CBC Comment AUTO DIFF Differential Total Cells Counted 100 Neutrophils % (Manual) 66 % Band Neutrophils % 21 % Lymphocytes % 5 % Monocytes % 7 % Neutrophils # (Manual) 25.2 TH/MM3 Myelocytes 1 % Differential Comment FINAL DIFF MANUAL Platelet Estimate NORMAL Platelet Morphology Comment NORMAL Red Cell Morphology Comment NORMAL Prothrombin Time 14.4 SEC Prothromb Time International Ratio 1.3 RATIO Activated Partial Thromboplast Time 33.8 SEC Blood Urea Nitrogen 26 MG/DL Creatinine 1.84 MG/DL Random Glucose 104 MG/DL Total Protein 7.4 GM/DL Albumin 3.2 GM/DL Calcium Level 8.7 MG/DL Alkaline Phosphatase 84 U/L Aspartate Amino Transf (AST/SGOT) 93 U/L Alanine Aminotransferase (ALT/SGPT) 39 U/L Total Bilirubin 0.7 MG/DL Sodium Level 131 MEQ/L Potassium Level 3.8 MEQ/L Chloride Level 95 MEQ/L Carbon Dioxide Level 22.6 MEQ/L Anion Gap 13 MEQ/L Estimat Glomerular Filtration Rate 37 ML/MIN Lactic Acid Level 3.2 mmol/L Troponin I 0.05 NG/ML B-Type Natriuretic Peptide 31 PG/ML Blood Gas Puncture Site RT RADIAL Blood Gas Patient Temperature 98.6 Blood Gas HCO3 20 mmol/L Blood Gas Base Excess -5.1 mmol/L Blood Gas Oxygen Saturation 97 % Arterial Blood pH 7.32 Arterial Blood Partial Pressure CO2 40 mmHg Arterial Blood Partial Pressure O2 132 mmHG Arterial Blood Oxygen Content 17.6 Vol % Arterial Blood Carboxyhemoglobin 0.7 % Arterial Blood Methemoglobin 0.6 % Blood Gas Hemoglobin 12.8 G/DL Oxygen Delivery Device BIPAP Blood Gas Ventilator Setting IPAP 12 EPAP 5 Blood Gas Inspired Oxygen 50 % Urine Color YELLOW Urine Turbidity HAZY Urine pH 5.5 Urine Specific [place] 1.020 Urine Protein 30 mg/dL Urine Glucose (UA) NEG mg/dL Urine Ketones NEG mg/dL Urine Occult Blood SMALL Urine Nitrite NEG Urine Bilirubin NEG Urine Urobilinogen LESS THAN 2.0 MG/DL Urine Leukocyte Esterase NEG Urine RBC 1 /hpf Urine WBC 2 /hpf Urine Squamous Epithelial Cells 1 /hpf Urine Amorphous Sediment RARE Urine Bacteria MOD /hpf Urine Mucus FEW /lpf Microscopic Urinalysis Comment CULTURE INDICATED MDM Medical Decision Making Medical Screen Exam Complete: Yes Emergency Medical Condition: Yes Interpretation(s) My review of EKG: Sinus tachycardia rate of 134, normal axis, normal intervals, no definite evidence of acute ischemia. LABS: CBC remarkable for white count 28,000, 21% bands CMP increased BUN and creatinine Lactate 3.2 Troponin negative BNP 31 ABG 7.32/40/132/20 INR 1.3 Chest x-ray: Left basilar airspace disease. Differential Diagnosis COPD, pneumonia, CHF, ACS, PE, other Narrative Course Medical decision making INITIAL: 60-year-old man, moderate respiratory distress. Diffuse rhonchi throughout both posterior lung nam. Clinical history is consistent with pneumonia with increased productive cough with fevers and chills. We'll check labs, screening for sepsis, breathing treatments, steroids, antibiotics. 3:00 PM: Labs really don't support a diagnosis of heart failure. There is a little bit of basilar opacity. This doesn't really also seemed explain the patient's marked respiratory distress. I think the patient probably has pneumonia and sepsis. He is a marked elevated white count. His a bump in his BUN and creatinine. At this time patient remained tachypneic, tachycardic, marked respiratory distress and diaphoresis. Admitted to decision to intubate the patient. I discussed with the patient and his . Patient was intubated uneventfully with the use of the video laryngoscope. Patient was given a 3 L normal saline bolus. Given the patient's hypoxia and respiratory distress and seems out of proportion to his x-ray findings, will check CT PE. Doubt PE. Likely pneumonia and sepsis. Critical Care Narrative Aggregate critical care time was 25 minutes. Time to perform other separately billable procedures was not included in the critical care time. My time did not include minutes spent treating any other patients simultaneously or on activities that did not directly contribute to the patient's treatment. The services I provided to this patient were to treat and/or prevent clinically significant deterioration that could result in: , disability, worsening respiratory failure, other. I provided critical care services requiring my management, as noted below: Chart data review, documentation time, medication orders and management, vital sign assessments/reviewing monitor data, ordering and reviewing lab tests, ordering and interpreting/reviewing x-rays and diagnostic studies, care of the patient and discussion of the patient with the admitting physicians. Procedures Procedure Narrative After the risks and benefits were discussed the following procedure was performed: INTUBATION: The patient was put in optimal position for the procedure. Rapid sequence intubation was initiated by me using 20 milligrams of etomidate IV and 100 milligrams of succinylcholine IV. The patient was intubated with a 8.0 cuffed endotracheal tube. Video laryngoscope was utilized. Tube placement was confirmed by visualization of the tube and balloon passing through the cords, capnometry and subsequent chest x-ray. Breath sounds were equal and well aerated bilaterally postintubation. No breath sounds over stomach. Patient tolerated procedure well. Sepsis Criteria Sepsis Criteria (SIRS+source): Infect source susp/known Severe Sepsis (+one): Lactate >2, Acute Oliguria/Renal Failure Criteria Outcome: Meets severe sepsis criteria Diagnosis Primary Impression: Pneumonia Additional Impressions: Severe sepsis Respiratory failure Admitting Information Admitting Physician Requests: Admit Joel Muse MD Jul 13, 2017 13:32
[2017-07-13] MEDS: RESP: ALBUTEROL 2.5 MG/IPRATROPIUM 0.5 MG NEB (SCH) INH ×3 (13:38→19:23)
[2017-07-13] MEDS ORDERED: cefTRIAXone INJ 1,000 MG in SODIUM CHLORIDE 0.9% INJ 100 ML IV ONE (13:45)
[2017-07-13] MEDS ORDERED: AZITHROMYCIN INJ 500 MG in SODIUM CHLOR 0.9% 250 ML INJ 250 ML IV ONE (13:45)
[2017-07-13 13:54] LABS: BLOOD GAS BASE EXCESS -5.1 mmol/L (-2-2); BLOOD GAS CARBOXYHEMOGLOBIN 0.7 % (0-4); BLOOD GAS HCO3 20 mmol/L (22-26); BLOOD GAS METHEMOGLOBIN 0.6 % (0-2); BLOOD GAS O2 HGB SATURATION 97 % (90-100); BLOOD GAS OXYGEN CONTENT 17.6 Vol % (12.0-20.0); BLOOD GAS PCO2 40 mmHg (38-42); BLOOD GAS PO2 132 mmHG (61-120); BLOOD GAS TOTAL HGB 12.8 G/DL (12.0-16.0); CRITICAL VALUE NO; OXYGEN DEVICE BIPAP; TEMP CORR TO 98.6; VENT SETTINGS IPAP 12 EPAP 5
[2017-07-13 13:55] LABS: DRAW SITE RT RADIAL; FIO2 50 %; NUMBER OF ARTERIAL PUNCTURES 1; STAT YES; ULNAR PULSE PRESENT
[2017-07-13 14:05] LABS: AUTOMATED NEUTROPHIL # 26.4 TH/MM3 (1.8-7.7); BASOPHIL % 0.1 % (0.0-2.0); HEMATOCRIT 38.4 % (39.0-51.0); LYMPHOCYTE # 0.6 TH/MM3 (1.0-4.8); MEAN CELL VOLUME 88.5 FL (80.0-100.0); MEAN CORPUSCULAR HEMOGLOBIN 30.8 PG (27.0-34.0); MEAN CORPUSCULAR HGB CONC 34.8 % (32.0-36.0); MONO % 5.8 % (0.0-8.0); NEUT % 92.1 % (16.0-70.0); PLATELET COUNT 324 TH/MM3 (150-450); RED BLOOD COUNT 4.34 MIL/MM3 (4.50-5.90); RED CELL DISTRIBUTION WIDTH 14.3 % (11.6-17.2); WHITE BLOOD COUNT 28.6 TH/MM3 (4.0-11.0)
[2017-07-13 14:07] LABS: HEMO FLAGS AUTO DIFF
--- NOTE | 2017-07-13 14:12 | RADRPT ---
EXAM DATE/TIME: 07/13/2017 13:52 [facility] COMPARISON: CHEST SINGLE AP, December 22, 2016, 0:34. INDICATIONS : Short of breath for four days. MEDICAL HISTORY : Cardiovascular disease. Hypertension. Gastroesophageal reflux disease. SURGICAL HISTORY : Coronary artery stent. Tonsillectomy ENCOUNTER: Initial ACUITY: 4 - 6 days PAIN SCORE: 0/10 LOCATION: Bilateral chest FINDINGS: Streaky airspace disease is identified in the left lung base obscuring the hemidiaphragm. Right lung is clear. Heart and mediastinal structures are stable. CONCLUSION: Left basilar airspace disease. Jayjay Samuel MD on July 13, 2017 at 14:09 Board Certified Radiologist. This report was verified electronically.
[2017-07-13 14:16] LABS: APTT (PATIENT) 33.8 SEC (24.3-30.1); INTERNATIONAL NORMALIZED RATIO 1.3 RATIO; PROTHROMBIN TIME - PATIENT 14.4 SEC (9.8-11.6)
[2017-07-13 14:29] LABS: ALT (GPT) 39 U/L (12-78); ANION GAP 13 MEQ/L (5-15); AST (GOT) 93 U/L (15-37); BICARBONATE 22.6 MEQ/L (21.0-32.0); BLOOD UREA NITROGEN 26 MG/DL (7-18); CHLORIDE 95 MEQ/L (98-107); GLOMERULAR FILTRATION RATE 37 ML/MIN (>89); POTASSIUM 3.8 MEQ/L (3.5-5.1); SODIUM (NA) 131 MEQ/L (136-145)
[2017-07-13] MEDS ORDERED: LORazepam 2 MG/ML VIAL IV PUSH ONE (14:30)
[2017-07-13] MEDS ORDERED: SODIUM CHLOR 0.9% 1000 ML INJ 1,000 ML IV ONE ×5 (14:30→19:00)
[2017-07-13 14:33] LABS: ALKALINE PHOSPHATASE 84 U/L (45-117); TOTAL BILIRUBIN ADULT 0.7 MG/DL (0.2-1.0)
[2017-07-13] MEDS ORDERED: ETOMIDATE 20 MG/10 ML VIAL ONE (14:40)
[2017-07-13] MEDS ORDERED: SUCCINYLCHOLINE CHLORIDE 200 MG/10 ML VIAL ONE (14:40)
[2017-07-13] MEDS: PROPOFOL 1000 MG/100 ML INJ 100 ML ONE ×2 (14:41→15:26)
[2017-07-13 14:58] LABS: BANDS 21 % (0-6); MYELOCYTES 1 % (0-0); NEUTROPHIL # MANUAL DIFF 25.2 TH/MM3 (1.8-7.7); PLATELET ESTIMATE SMEAR NORMAL (NORMAL); PLATELET MORPHOLOGY NORMAL (NORMAL); POLYS (SEG NEUTROPHILS) 66 % (16-70); SCAN/DIFF FINAL DIFF MANUAL; WBC DIFF SAMPLE 100
[2017-07-13] MEDS ORDERED: ETOMIDATE 20 MG/10 ML VIAL IV PUSH ONE (15:00)
[2017-07-13] MEDS ORDERED: SUCCINYLCHOLINE CHLORIDE 200 MG/10 ML VIAL IV PUSH ONE (15:00)
[2017-07-13] MEDS ORDERED: PROPOFOL 1000 MG/100 ML INJ 100 ML IV PRN (15:00)
--- NOTE | 2017-07-13 15:43 | RADRPT ---
EXAM DATE/TIME: 07/13/2017 15:22 [facility] COMPARISON: CHEST SINGLE AP, July 13, 2017, 13:52. INDICATIONS : Post intubation. MEDICAL HISTORY : Cardiovascular disease. Hypertension. Gastroesophageal reflux disease. SURGICAL HISTORY : Coronary artery stent. Tonsillectomy. ENCOUNTER: Initial ACUITY: 1 day PAIN SCORE: Non-responsive. LOCATION: Bilateral chest FINDINGS: A single view of the chest demonstrates interval insertion of an endotracheal tube which is in good p osition. A nasogastric tube is also been inserted. Its tip is at the gastroesophageal junction. Improved lung aeration is noted with clearing airspace disease in the left base. Heart and mediastinal structures are stable. CONCLUSION: 1. Satisfactory position of endotracheal tube. 2. Tip of nasogastric tube in the distal esophagus. 3. Clearing of left basilar airspace disease no intubation. Jayjay Samuel MD on July 13, 2017 at 15:40 Board Certified Radiologist. This report was verified electronically.
[2017-07-13 15:49] LABS: LACTIC ACID GHOST NOT REPORTABLE
[2017-07-13] MEDS ORDERED: IODIXANOL 320 MG/ML 10 ML VIAL (for Rad CT) IV ONE (15:58)
[2017-07-13 16:04] LABS: BLOOD, URINE SMALL (NEG); GLUCOSE,URINE NEG (NEG); KETONE, URINE NEG (NEG); MUCUS URINE FEW /lpf (OCC); NITRITE,URINE NEG (NEG); PH, URINE 5.5 (5.0-8.5); SQUAMOUS EPITHELIAL CELL URINE 1 /hpf (0-5); URINE COLOR YELLOW (YELLW/STRAW)
[2017-07-13 16:06] LABS: BACTERIA, URINE MOD /hpf
[2017-07-13 16:07] LABS: COMMENT (UR) CULTURE INDICATED; CULTURE IF INDICATED CULTURE INDICATED
--- NOTE | 2017-07-13 16:10 | HHI.HP ---
[facility] Service Critical Care Medicine Primary Care Physician Unknown Admission Diagnosis pneumonia, sepsis, hypoxia Diagnosis: (1) Gastroesophageal reflux disease Diagnosis: Principal (2) Elevated AST (SGOT) Diagnosis: Principal (3) BPH (benign prostatic hyperplasia) Diagnosis: Principal (4) Lactic acidosis Diagnosis: Principal (5) Acute kidney injury Diagnosis: Principal (6) Hyponatremia Diagnosis: Principal (7) Leukocytosis Diagnosis: Principal (8) Respiratory failure Diagnosis: Principal (9) Pneumonia Diagnosis: Principal (10) Severe sepsis Diagnosis: Principal (11) HTN (hypertension) Diagnosis: Principal (12) Morbid obesity Diagnosis: Principal (13) Hyperlipidemia Diagnosis: Principal (14) Coronary artery disease Diagnosis: Principal (15) Erectile dysfunction Diagnosis: Principal (16) History of depression Diagnosis: Principal (17) Chronic back pain Diagnosis: Principal (18) Diabetes mellitus Diagnosis: Principal (19) Anxiety Diagnosis: Principal Chief Complaint: Shortness of breath Travel History International Travel<30 Days: No Contact w/Intl Traveler <30 Da: No Traveled to Known Affected Are: No Sepsis Criteria SIRS Criteria (2 or more): Temp > 100.9 or < 96.8, WBC > 57663, < 4000 or > 10 % bands Sepsis Criteria (SIRS+source): Infect source susp/known Severe Sepsis (+one): Lactate >2 Criteria Outcome: Meets severe sepsis criteria History of Present Illness This is a 61-year-old man. Date of admission 07/13/2017. Past medical history includes coronary disease status post 5 stents, dyslipidemia, diabetes mellitus, morbid obesity, hypertension, BPH, osteoarthritis and chronic pain syndrome. His is a [employer] employee who has been "sick" for the past month. She has been treated outpatient with prednisone. He has been treated outpatient with dextromethorphan and prednisone as well. Today, he acutely presents to the emergency department complaining of productive cough and shortness of breath. He states for the past several days had increased cough cold symptoms, productive of thick yellowish phlegm, with increased shortness of breath and difficulty breathing. He uses an inhaler as needed, but denies any history of COPD. he complains of fevers and chills.. Denies any chest pain. No leg swelling. No other complaints. Initially the patient was placed on BiPAP with minimal success. Is given 125 mg of's methylprednisolone, 1 g ceftriaxone and 500 mg IV azithromycin. Despite this, patient was quite tachypneic. Chest x-ray revealed possible left lower lobe in July. Due to his respiratory distress patient was intubated after receiving 20 mg etomidate and [address] pulmonary exam revealed no central pulmonary embolus. Interstitial inflammation likely pneumonia would fit the clinical picture. We were asked to admit.. Review of Systems ROS Limitations: Intubated Past Family Social History Allergies: Coded Allergies: duloxetine (Verified Adverse Reaction, Severe, Confusion, 07/13/17) Past Medical History Erectile dysfunction Benign prostatic hypertrophy Osteoarthritis Gastroesophageal reflux disease Coronary disease status post 5 stents drug-eluting stents 2007 Dyslipidemia Diabetes mellitus Depression/anxiety Insomnia Chronic low back pain Congestive heart failure/diastolic chronic Past Surgical History Bilateral total knee replacements Right carpal tunnel release Nasal septal repair L4/S1 decompression History of colonoscopy with benign polyp removal Reported Medications Fluticasone Nasal [place] 50 Mcg/Act Naspr 100 Mcg EACH NARE BID 50 mcg/spray Bromfed DM Liq (Cxyzfnszfttaqbb-Imkgxeosmddvkcv-WF Liq) 30-2-10 Mg/5 Ml Syrp 5 Ml PO Q6H PRN Fluoxetine (Fluoxetine HCl) 20 Mg Capsule 20 Mg PO DAILY Metoprolol Succinate ER 24 HR (Metoprolol Succinate) 25 Mg Tab 25 Mg PO DAILY [place]olin Hfa 18 GM Inh (Albuterol Sulfate) 90 Mcg/Act Aer 2 Puff INH Q4-6H PRN Bianca Contour Next Blood Test Strips (Blood Glucose Test Strips) 1 [place] Madison 1 Strip .ROUTE TID Lancets 1 Mis Mis 1 Ea .ROUTE DIRECTED Metformin (Metformin HCl) 500 Mg Tab 500 Mg PO BID With a meal Prinivil (Lisinopril) 20 Mg Tab 20 Mg PO BID Pramipexole (Pramipexole Dihydrochloride) 0.5 Mg Tab 0.5 Mg PO BID Simvastatin 80 Mg Tab 80 Mg PO HS Reported Oxycodone-Acetaminophen 5-325 mg Tab 1 Tab PO Q4H PRN Flexeril (Cyclobenzaprine HCl) 5 Mg Tab 5 Mg PO TID Ranitidine 75 (Ranitidine HCl) 75 Mg Tab 75 Mg PO DAILY Take 30 to 60 minutes before eating food or drinking beverages that cause heartburn. Sleep Aid (Diphenhydramine HCl (Sleep)) 25 Mg Tab 25 Mg PO HS Seroquel (Quetiapine Fumarate) 25 Mg Tab 25 Mg PO HS Topiramate 50 Mg Tab 75 Mg PO BID Omeprazole 40 Mg Cap 40 Mg PO DAILY Nitroglycerin SL (Nitroglycerin) 0.4 Mg Subl 0.4 Mg SL DIRECTED PRN ONE TABLET UNDER THE TONGUE NEEDED FOR CHEST PAIN, MAY REPEAT EVERY FIVE MINUTES FOR A TOTAL OF 3 DOSES OR CALL 911 IF NO RELIEF Multiple Vitamin 1 Tab 1 Tab PO DAILY Aspirin 325 Mg Tab 325 Mg PO DAILY Active Ordered Medications Reviewed in EMR Family History Grandfather with hypertension. Father at age 71. Coronary artery disease. EtOH use. Mother age 72. Depression. Social History 3 pack per days tobacco [id number]. Restarted 2016. Quit alcohol 2007 after heavy usage. No IV drug use. Physical Exam Vital Signs Vital Signs Date Time Temp Pulse Resp B/P (MAP) Pulse Ox O2 Delivery O2 Flow Rate FiO2 07/13/17 16:04 138 20 122/84 (97) 100 Ventilator 100 07/13/17 15:50 100 100 07/13/17 15:31 133 20 128/60 (82) 100 Ventilator 100 07/13/17 15:00 136 20 132/60 (84) 100 Ventilator 100 07/13/17 14:03 132 28 166/70 (102) 98 BiPAP 50 07/13/17 13:30 100 BiPAP 50 07/13/17 13:25 34 94 Nasal Cannula 4.00 07/13/17 13:25 94 Nasal Cannula 4.00 07/13/17 13:20 134 34 94 Nasal Cannula 4.00 07/13/17 13:20 100 50 07/13/17 13:19 97.9 134 34 114/72 (86) 89 Physical Exam GENERAL: 61-year-old male, critically ill currently orotracheally intubated SKIN: Warm and dry. Intertrigo and pannus creases HEAD: Atraumatic. Normocephalic. EYES: Pupils equal and round about 3 mm bilaterally and reactive. No conjunctival hemorrhage. No scleral icterus. No injection or drainage. ENT: No nasal bleeding or discharge. Mucous membranes pink and moist. NECK: Trachea midline. No JVD. CARDIOVASCULAR: Regular rate and rhythm. S1, S2. No acute without murmur RESPIRATORY: Coarse rhonchorous breath sounds are appreciated bilaterally. Thick copious whitish secretions. GASTROINTESTINAL: Abdomen soft, non-tender, obese. Hypoactive bowel sounds appreciated. Hepatic and splenic margins not palpable. MUSCULOSKELETAL: Extremities with nonpitting lower extremity edema. No obvious deformities. NEUROLOGICAL: Currently sedated on the ventilator after intubation. Withdraws to pain noxious stimulation in all 4 extremities. Positive gag. Positive corneal reflex. Laboratory Laboratory Tests Test 07/13/17 13:40 07/13/17 13:44 07/13/17 15:00 White Blood Count 28.6 Red Blood Count 4.34 Hemoglobin 13.4 Hematocrit 38.4 Mean Corpuscular Volume 88.5 Mean Corpuscular Hemoglobin 30.8 Mean Corpuscular Hemoglobin Concent 34.8 Red Cell Distribution Width 14.3 Platelet Count 324 Mean Platelet Volume 8.5 Neutrophils (%) (Auto) 92.1 Lymphocytes (%) (Auto) 2.0 Monocytes (%) (Auto) 5.8 Eosinophils (%) (Auto) 0.0 Basophils (%) (Auto) 0.1 Neutrophils # (Auto) 26.4 Lymphocytes # (Auto) 0.6 Monocytes # (Auto) 1.7 Eosinophils # (Auto) 0.0 Basophils # (Auto) 0.0 CBC Comment AUTO DIFF Differential Total Cells Counted 100 Neutrophils % (Manual) 66 Band Neutrophils % 21 Lymphocytes % 5 Monocytes % 7 Neutrophils # (Manual) 25.2 Myelocytes 1 Differential Comment FINAL DIFF MANUAL Platelet Estimate NORMAL Platelet Morphology Comment NORMAL Red Cell Morphology Comment NORMAL Prothrombin Time 14.4 Prothromb Time International Ratio 1.3 Activated Partial Thromboplast Time 33.8 Blood Urea Nitrogen 26 Creatinine 1.84 Random Glucose 104 Total Protein 7.4 Albumin 3.2 Calcium Level 8.7 Alkaline Phosphatase 84 Aspartate Amino Transf (AST/SGOT) 93 Alanine Aminotransferase (ALT/SGPT) 39 Total Bilirubin 0.7 Sodium Level 131 Potassium Level 3.8 Chloride Level 95 Carbon Dioxide Level 22.6 Anion Gap 13 Estimat Glomerular Filtration Rate 37 Lactic Acid Level 3.2 Troponin I 0.05 B-Type Natriuretic Peptide 31 Blood Gas Puncture Site RT RADIAL Blood Gas Patient Temperature 98.6 Blood Gas HCO3 20 Blood Gas Base Excess -5.1 Blood Gas Oxygen Saturation 97 Arterial Blood pH 7.32 Arterial Blood Partial Pressure CO2 40 Arterial Blood Partial Pressure O2 132 Arterial Blood Oxygen Content 17.6 Arterial Blood Carboxyhemoglobin 0.7 Arterial Blood Methemoglobin 0.6 Blood Gas Hemoglobin 12.8 Oxygen Delivery Device BIPAP Blood Gas Ventilator Setting IPAP 12 EPAP 5 Blood Gas Inspired Oxygen 50 Urine Color YELLOW Urine Turbidity HAZY Urine pH 5.5 Urine Specific [place] 1.020 Urine Protein 30 Urine Glucose (UA) NEG Urine Ketones NEG Urine Occult Blood SMALL Urine Nitrite NEG Urine Bilirubin NEG Urine Urobilinogen LESS THAN 2.0 Urine Leukocyte Esterase NEG Urine RBC 1 Urine WBC 2 Urine Squamous Epithelial Cells 1 Urine Amorphous Sediment RARE Urine Bacteria MOD Urine Mucus FEW Microscopic Urinalysis Comment CULTURE INDICATED Date/Time Source Procedure Growth Status 07/13/17 13:40 Blood Peripheral Aerobic Blood Culture Pending Received 07/13/17 13:40 Blood Peripheral Anaerobic Blood Culture Pending Received 07/13/17 15:00 Urine Random Urine Urine Culture Pending Received Result Diagram: 07/13/17 1340 07/13/17 1340 Imaging Last Impressions Chest X-Ray 07/13/17 1323 Signed Impressions: Service Date/Time: Thursday, July 13, 2017 13:52 - CONCLUSION: Left basilar airspace disease. Jayjay Samuel MD CT Angiography 07/13/17 0000 Signed Impressions: Service Date/Time: Thursday, July 13, 2017 15:46 - CONCLUSION: 1. Central airspace disease or bronchial wall thickening and interstitial prominence suggesting mild pneumonitis or pulmonary edema. 2. No evidence of pulmonary embolism. 3. Tip of endotracheal tube in the cardia of the stomach. Jayjay Samuel MD Caprini VTE Risk Assessment Caprini VTE Risk Assessment: Mod/High Risk (score >= 2) Caprini Risk Assessment Model Point Value = 1 Point Value = 2 Point Value = 3 Point Value = 5 Age 41-60 Minor surgery BMI > 25 kg/m2 Swollen legs Varicose veins or History of unexplained or recurrent spontaneous Oral contraceptives or hormone replacement Sepsis (< 1 month) Serious lung disease, including pneumonia (< 1 month) Abnormal pulmonary function Acute myocardial infarction Congestive heart failure (< 1 month) History of inflammatory bowel disease Medical patient at bed rest Age 61-74 Arthroscopic surgery Major open surgery (> 45 min) Laparoscopic surgery (> 45 min) Malignancy Confined to bed (> 72 hours) Immobilizing plaster cast Central venous access Age >= 75 History of VTE Family history of VTE Factor V Leiden Prothrombin [id number] Lupus anticoagulant Anticardiolipin antibodies Elevated serum homocysteine Heparin-induced thrombocytopenia Other congenital or acquired thrombophilia Stroke (< 1 month) Elective arthroplasty Hip, pelvis, or leg fracture Acute spinal cord injury (< 1 month) Prophylaxis Regimen Total Risk Factor Score Risk Level Prophylaxis Regimen 0-1 Low Early ambulation 2 Moderate Order ONE of the following: *Sequential Compression Device (SCD) *Heparin 5000 units SQ BID 3-4 Higher Order ONE of the following medications: *Heparin 5000 units SQ TID *Enoxaparin/Lovenox 40 mg SQ daily (WT < 150 kg, CrCl > 30 mL/min) *Enoxaparin/Lovenox 30 mg SQ daily (WT < 150 kg, CrCl > 10-29 mL/min) *Enoxaparin/Lovenox 30 mg SQ BID (WT < 150 kg, CrCl > 30 mL/min) AND/OR *Sequential Compression Device (SCD) 5 or more Highest Order ONE of the following medications: *Heparin 5000 units SQ TID (Preferred with Epidurals) *Enoxaparin/Lovenox 40 mg SQ daily (WT < 150 kg, CrCl > 30 mL/min) *Enoxaparin/Lovenox 30 mg SQ daily (WT < 150 kg, CrCl > 10-29 mL/min) *Enoxaparin/Lovenox 30 mg SQ BID (WT < 150 kg, CrCl > 30 mL/min) AND *Sequential Compression Device (SCD) Assessment and Plan Assessment and Plan Neuro/Psych: History of depression/anxiety Insomnia Patient is currently propofol/fentanyl drips for sedation/analgesia while intubated Goal of RA SS -2 Daily sedation vacation Holding home medication of diphenhydramine 25 mg at night for insomnia Holding cyclobenzaprine 5 mill grams 3 times a day for muscle relaxation Resume fluoxetine 20 mg by mouth daily for depression Resume topiramate 75 mg by mouth twice a day for pain management Resume Quetiapine 25 mg at night for depression/anxiety Resume pramipexole 0.5 mg by mouth twice a day CV: Chronic diastolic heart failure Hypertension Dyslipidemia Lactic acidosis 2-D echocardiogram 01/17 revealed EF 55-60%. Grade 1 diastolic dysfunction. Left atrium left. Mild MR/TR. PAP 35 mmHg Continue aspirin 25 mg by mouth daily for coronary artery disease Holding metoprolol 25 mg daily Holding lisinopril 20 mg by mouth twice a day in light of acute kidney injury Resume simvastatin 80 mg by mouth daily for dyslipidemia Currently normal saline at 84 cc an hour. Serial lactates until clear are currently 3.2 Resp: Ongoing tobaccoism Acute hypoxic hypercapnic respiratory fever secondary to pneumonia [facility] 16/550/ Ventilator bundle Albuterol/ipratropium aerosols every 4 hours with albuterol aerosol every 2 hours. Dyspnea CTPA 07/13 revealed no signs of pulmonary wasn't helpful with this central interstitial prominence likely pneumonia She has an albuterol inhaler he uses as needed at home GI: Gastroesophageal reflux disease NGT to LIWS Continue 30 mg by tube daily for gastroesophageal reflux disease Docusate sodium/senna 1 tab twice a day for bowel regimen Patient is on either ranitidine 75 mill grams daily or omeprazole 40 mg by mouth daily home. : BPH ED Thapa catheter for accurate I's and O's in a critically ill patient Endo: Diabetes mellitus Holding metformin 500 mill grams by mouth twice a day in light of acute kidney injury/lactic acidosis/recent contrast administration by ED Sliding scale insulin with Accu-Cheks to maintain euglycemia Novulin R every 6 hours medium regimen Renal: Acute kidney injury Follow-up a.m. BMP Heme: Leukocytosis Normocytic anemia Monitor CBC daily. Follow trends No indications for transfusion of blood products at this time ID: Likely pneumonia Day #1 vancomycin, cefepime and azithromycin Blood cultures 2, sputum, urine Legionella and pneumococcal antigens all pending MSK: Osteoarthritis Chronic low back pain status post L4/S1 decompression PT evaluate and treat FEN: Hyponatremia Replace electrolytes as clinically indicated Access - Utilize peripheral IV. Central line if indicated Prophylaxis - GI - lanosprazole - DVT - SCD/heparin subcutaneous Critical Care: The total critical care time was 35 minutes. Time to perform other separately billable procedures was not included in the critical care time. Code Status Full code Discussed Condition With Dr. Kramer, ED physician. Patient's Paty [place]. Care plan discussed and all questions answered. Problem Qualifiers (1) BPH (benign prostatic hyperplasia): Qualified Codes: N40.0 - Benign prostatic hyperplasia without lower urinary tract symptoms (2) Leukocytosis: Qualified Codes: D72.829 - Elevated white blood cell count, unspecified (3) Respiratory failure: Qualified Codes: J96.01 - Acute respiratory failure with hypoxia; J96.02 - Acute respiratory failure with hypercapnia (4) Pneumonia: Qualified Codes: J18.9 - Pneumonia, unspecified organism (5) HTN (hypertension): Qualified Codes: I10 - Essential (primary) hypertension (6) Hyperlipidemia: Qualified Codes: E78.5 - Hyperlipidemia, unspecified (7) Coronary artery disease: Qualified Codes: I25.118 - Atherosclerotic heart disease of [place] coronary artery with other forms of angina pectoris (8) Erectile dysfunction: Qualified Codes: N52.9 - Male erectile dysfunction, unspecified (9) Chronic back pain: Qualified Codes: M54.5 - Low back pain; G89.29 - Other chronic pain (10) Diabetes mellitus: Qualified Codes: E11.8 - Type 2 diabetes mellitus with unspecified complications Kolton Fishman MD Jul 13, 2017 16:10
[2017-07-13] MEDS ORDERED: RESP: ALBUTEROL 2.5 MG/3 ML NEB (PRN) INH (16:15)
[2017-07-13] MEDS ORDERED: MISCELLANEOUS NURSING INFORMATION XX SCH (16:15)
[2017-07-13] MEDS ORDERED: BISACODYL 10 MG SUPP RECTAL PRN (16:15)
[2017-07-13] MEDS ORDERED: LACTULOSE SYRUP 20 GM/30 ML CUP PO PRN (16:15)
[2017-07-13] MEDS ORDERED: DEXTROSE 50% IN WATER 50 ML VIAL(D50) IV PRN (16:15)
[2017-07-13] MEDS ORDERED: CHLORHEXIDINE GLUCONATE 2 % 1 PACK (2 CLOTHS) TOP PRN (16:15)
[2017-07-13] MEDS ORDERED: ONDANSETRON HCL 4 MG/2 ML VIAL IV PUSH PRN (16:15)
[2017-07-13] MEDS ORDERED: SENNOSIDES 8.6 MG TAB PO PRN (16:15)
[2017-07-13] MEDS ORDERED: SODIUM CHLORIDE 0.9% FLUSH 10 ML FLUSH IV FLUSH PRN (16:15)
[2017-07-13] MEDS ORDERED: GLUCAGON 1 MG/ML VIAL OTHER PRN (16:15)
--- NOTE | 2017-07-13 16:15 | RADRPT ---
EXAM DATE/TIME: 07/13/2017 15:46 [place] COMPARISON: No previous studies available for comparison. INDICATIONS : Short of breath. Evaluate for embolism. IV CONTRAST: 50 cc Visipaque (iodixanol) IV RADIATION DOSE: 20.74 CTDIvol (mGy) MEDICAL HISTORY : Hypertension. SURGICAL HISTORY : None. ENCOUNTER: Initial ACUITY: 1 day PAIN SCALE: 0/10 LOCATION: chest TECHNIQUE: Volumetric scanning of the chest was performed using a pulmonary embolism protocol MIP images were re constructed. Using automated exposure control and adjustment of the mA and/or kV according to patien t size, radiation dose was kept as low as reasonably achievable to obtain optimal diagnostic quality images. DICOM format image data is available electronically for review and comparison. Follow-up recommendations for detected pulmonary nodules are based at a minimum on nodule size and pa tient risk factors according to Fleischner Society Guidelines. FINDINGS: PULMONARY ARTERIES: No filling defects are seen in the pulmonary arteries through the segmental level. LUNGS: Interstitial prominence and central bronchial wall thickening is noted. There is no consolidation or pneumothorax . No concerning pulmonary nodule is visualized. PLEURAE: There is no pleural thickening or pleural effusion. MEDIASTINUM: There is good visualization of the great vessels of the middle mediastinum. No evidence of mediastin al or hilar adenopathy/mass. MUSCULOSKELETAL: Within normal limits for patient age. MISCELLANEOUS: The visualized upper abdominal organs demonstrate no acute abnormality. CONCLUSION: 1. Central airspace disease or bronchial wall thickening and interstitial prominence suggesting mild pneumonitis or pulmonary edema. 2. No evidence of pulmonary embolism. 3. Tip of endotracheal tube in the cardia of the stomach. Jayjay Samuel MD on July 13, 2017 at 16:10 Board Certified Radiologist. This report was verified electronically.
[2017-07-13] MEDS ORDERED: Vancomycin Consult Pharmacy 1 EA OTHER SCH (16:30)
[2017-07-13] MEDS ORDERED: SODIUM CHLORID 0.9% 500 ML INJ 500 ML IV ONE (16:45)
[2017-07-13] MEDS ORDERED: SODIUM CHLOR 0.9% 1000 ML INJ 1,000 ML IV SCH (17:00)
[2017-07-13] MEDS: INSULIN NovoLIN REGULAR SUPPLEMENTAL SCALE SQ SCH (18:00)
[2017-07-13] MEDS: ARTIFICIAL TEARS OPTH SOLN 15 ML BTL EACH EYE SCH (18:00)
[2017-07-13 18:23] LABS: BLOOD GAS BASE EXCESS -7.9 mmol/L (-2-2); BLOOD GAS CARBOXYHEMOGLOBIN 0.7 % (0-4); BLOOD GAS HCO3 18 mmol/L (22-26); BLOOD GAS METHEMOGLOBIN 1.1 % (0-2); BLOOD GAS O2 HGB SATURATION 98 % (90-100); BLOOD GAS OXYGEN CONTENT 17.4 Vol % (12.0-20.0); BLOOD GAS PCO2 38 mmHg (38-42); BLOOD GAS PO2 546 mmHg (61-120); BLOOD GAS TOTAL HGB 11.6 G/DL (12.0-16.0); TEMP CORR TO 98.6
[2017-07-13 18:24] LABS: CRITICAL VALUE YES; FIO2 100 %; OXYGEN DEVICE VENTILATOR
[2017-07-13 18:25] LABS: DRAW SITE RT RADIAL; NUMBER OF ARTERIAL PUNCTURES 1; STAT NO; ULNAR PULSE PRESENT; VENT SETTINGS SEE COMMENTS
[2017-07-13] MEDS ORDERED: VANCOMYCIN 1,500 MG/NS 500 ML IV ONE ×2 (20:00)
[2017-07-13] MEDS: SODIUM BICARBONATE 8.4% INJ 150 MEQ in DEXTROSE 5% IN WATE 1000ML INJ 1,000 ML IV SCH ×2 (20:32)
[2017-07-13] MEDS: CEFEPIME INJ 2,000 MG in SODIUM CHLORIDE 0.9% INJ 100 ML IV SCH (20:33)
[2017-07-13] MEDS: CHLORHEXIDINE 0.12% (ORAL KIT) 15 ML CUP MT SCH (20:33)
[2017-07-13] MEDS: SODIUM CHLORIDE 0.9% FLUSH 10 ML FLUSH IV FLUSH SCH (20:34)
[2017-07-13] MEDS: PRAVASTATIN SOD 80 MG TAB PO SCH (20:34)
[2017-07-13] MEDS: DOCUSATE SODIUM 50 MG/SENNA 8.6 MG TAB PO SCH (20:34)
[2017-07-13] MEDS: HEPARIN SODIUM - SQ 10,000 UNITS/ML VIAL SQ SCH (20:34)
[2017-07-13] MEDS: PRAMIPEXOLE DIHYDROCHLORIDE 0.25 MG TAB PO SCH ×2 (20:34→21:55)
[2017-07-13] MEDS: FLUTICASONE PROPIONATE 50 MCG/ACT 16 GM NASAL SPRAY EACH NARE SCH (20:34)
[2017-07-13] MEDS: TOPIRAMATE 25 MG TAB PO SCH (20:35)
[2017-07-13] MEDS: methylPREDNISolone SOD SUCC 40 MG/1 ML VIAL IV PUSH SCH (20:35)
[2017-07-13] MEDS: QUEtiapine FUMARATE 25 MG TAB PO SCH (20:35)
[2017-07-13] MEDS: PROPOFOL 1000 MG/100 ML INJ 100 ML IV PRN ×2 (20:36→21:56)
[2017-07-13] MEDS ORDERED: NON-FORMULARY DRUG (Pramipexole 0.5 MG) PO SCH (21:00)
[2017-07-13] MEDS ORDERED: ACETAMINOPHEN 1000 MG/100 ML VIAL IV PRN (21:00)
[2017-07-13] MEDS ORDERED: NON-FORMULARY DRUG (Simvastatin 80 MG) PO SCH (21:00)
[2017-07-13] MEDS ORDERED: ACETAMINOPHEN 325 MG TAB PO PRN (21:00)
[2017-07-14] VITALS (22 sets, daily range): BP systolic 96–127; BP diastolic 52–64; PULSE 71–96; RESP 19–20; TEMP 96.8–99; O2SAT 96–100
[2017-07-14] MEDS: RESP: ALBUTEROL 2.5 MG/IPRATROPIUM 0.5 MG NEB (SCH) INH ×7 (00:07→23:43)
[2017-07-14] MEDS: HEPARIN SODIUM - SQ 10,000 UNITS/ML VIAL SQ SCH ×3 (02:35→19:53)
[2017-07-14] MEDS: PROPOFOL 1000 MG/100 ML INJ 100 ML IV PRN ×5 (02:36→22:37)
[2017-07-14] MEDS: methylPREDNISolone SOD SUCC 40 MG/1 ML VIAL IV PUSH SCH ×3 (04:19→22:37)
[2017-07-14] MEDS: CHLORHEXIDINE GLUCONATE 2 % 1 PACK (2 CLOTHS) TOP SCH (04:19)
--- NOTE | 2017-07-14 04:39 | HHI.CCPN ---
Subjective Remarks/Hospital Course This is a 61-year-old man. Date of admission 07/13/2017. Past medical history includes coronary disease status post 5 stents, dyslipidemia, diabetes mellitus, morbid obesity, hypertension, BPH, osteoarthritis and chronic pain syndrome. 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 She has been treated outpatient with prednisone. He has been treated outpatient with dextromethorphan and prednisone as well. Today, he acutely presents to the emergency department complaining of productive cough and shortness of breath. He states for the past several days had increased cough cold symptoms, productive of thick yellowish phlegm, with increased shortness of breath and difficulty breathing. He uses an inhaler as needed, but denies any history of COPD. he complains of fevers and chills.. Denies any chest pain. No leg swelling. No other complaints. Initially the patient was placed on BiPAP with minimal success. Is given 125 mg of's methylprednisolone, 1 g ceftriaxone and 500 mg IV azithromycin. Despite this, patient was quite tachypneic. Chest x-ray revealed possible left lower lobe in July. Due to his respiratory distress patient was intubated after receiving 20 mg etomidate and [address] pulmonary exam revealed no central pulmonary embolus. Interstitial inflammation likely pneumonia would fit the clinical picture. We were asked to admit. SUBJECTIVE: 07/14: Afebrile. No acute issues Overnight. FiO2 down to 50%. Real-time sedation vacation today. Lactate is clear. Objective Vital Signs Date Time Temp Pulse Resp B/P (MAP) Pulse Ox O2 Delivery O2 Flow Rate FiO2 07/14/17 04:29 100 50 07/14/17 00:00 81 07/14/17 00:00 96.8 19 96/52 (67) 07/13/17 16:48 Ventilator 07/13/17 13:25 4.00 Intake and Output 07/14/17 07/14/17 07/15/17 08:00 16:00 00:00 Intake Total 2600 ml Balance 2600 ml Result Diagram: 07/13/17 1340 07/13/17 1340 Other Results Microbiology Date/Time Source Procedure Growth Status 07/13/17 13:40 Blood Peripheral Aerobic Blood Culture Pending Received 07/13/17 13:40 Blood Peripheral Anaerobic Blood Culture Pending Received 07/13/17 19:45 Sputum Endotracheal Gram Stain Pending Received 07/13/17 19:45 Sputum Endotracheal Sputum Culture Pending Received 07/13/17 15:00 Urine Catheterized Urine Legionella Antigen Pending Received 07/13/17 15:00 Urine Catheterized Urine Streptococcus pneumoniae Antigen (M Pending Received Imaging Last Impressions Chest X-Ray 07/13/17 1323 Signed Impressions: Service Date/Time: Thursday, July 13, 2017 13:52 - CONCLUSION: Left basilar airspace disease. Jayjay Samuel MD CT Angiography 07/13/17 0000 Signed Impressions: Service Date/Time: Thursday, July 13, 2017 15:46 - CONCLUSION: 1. Central airspace disease or bronchial wall thickening and interstitial prominence suggesting mild pneumonitis or pulmonary edema. 2. No evidence of pulmonary embolism. 3. Tip of endotracheal tube in the cardia of the stomach. Jayjay Samuel MD Objective Remarks GENERAL: 61-year-old male, critically ill currently orotracheally intubated SKIN: Warm and dry. Intertrigo and pannus creases HEAD: Atraumatic. Normocephalic. EYES: Pupils equal and round about 3 mm bilaterally and reactive. No conjunctival hemorrhage. No scleral icterus. No injection or drainage. ENT: No nasal bleeding or discharge. Mucous membranes pink and moist. NECK: Trachea midline. No JVD. CARDIOVASCULAR: Regular rate and rhythm. S1, S2. No acute without murmur RESPIRATORY: Coarse rhonchorous breath sounds are appreciated bilaterally. Thick copious whitish secretions. GASTROINTESTINAL: Abdomen soft, non-tender, obese. Hypoactive bowel sounds appreciated. Hepatic and splenic margins not palpable. MUSCULOSKELETAL: Extremities with nonpitting lower extremity edema. No obvious deformities. NEUROLOGICAL: Arousable on the ventilator but not falling commands. Withdraws to pain noxious stimulation in all 4 extremities. Positive gag. Positive corneal reflex. Urinary Catheter: Yes Assessment to: Continue Thapa insert reason: Prolonged Immobilization Vascular Central Line Catheter: No Assessment to: Continue A/P Assessment and Plan Neuro/Psych: History of depression/anxiety Insomnia Patient is currently propofol drip at 35 mics grams per kilogram per minute/ fentanyl drips as needed for sedation/analgesia while intubated Goal of RA SS -2 Daily sedation vacation Holding home medication of diphenhydramine 25 mg at night for insomnia Holding cyclobenzaprine 5 mill grams 3 times a day for muscle relaxation Resume fluoxetine 20 mg by mouth daily for depression Resume topiramate 75 mg by mouth twice a day for pain management Resume Quetiapine 25 mg at night for depression/anxiety Resume pramipexole 0.5 mg by mouth twice a day CV: Chronic diastolic heart failure Hypertension Dyslipidemia Lactic acidosis - resolved 2-D echocardiogram 01/17 revealed EF 55-60%. Grade 1 diastolic dysfunction. Left atrium left. Mild MR/TR. PAP 35 mmHg Continue aspirin 25 mg by mouth daily for coronary artery disease Holding metoprolol extended release 25 mg daily Holding lisinopril 20 mg by mouth twice a day in light of acute kidney injury. Resume when clinically indicated Resume simvastatin 80 mg by mouth daily for dyslipidemia Currently switched to bicarbonate drip at 75 cc an hour from normal saline at 84 cc an hour by overnight manager balance. Serial lactates until clear are currently 3.2 - 1.5 Resp: Ongoing tobaccoism Acute hypoxic hypercapnic respiratory fever secondary to pneumonia PRVC /11/07/49 Ventilator bundle Albuterol/ipratropium aerosols every 4 hours with albuterol aerosol every 2 hours. Dyspnea CTPA 07/13 revealed no signs of pulmonary wasn't helpful with this central interstitial prominence likely pneumonia He has an albuterol inhaler he uses as needed at home A.m. chest x-ray / ABG pending GI: Gastroesophageal reflux disease NGT to LIWS initiate tube feeds if not extubated today Continue lansoprazole 30 mg by tube daily for gastroesophageal reflux disease Docusate sodium/senna 1 tab twice a day for bowel regimen Patient is on either ranitidine 75 mill grams daily or omeprazole 40 mg by mouth daily home. : BPH ED Thapa catheter for accurate I's and O's in a critically ill patient Endo: Diabetes mellitus Holding metformin 500 mill grams by mouth twice a day in light of acute kidney injury/lactic acidosis/recent contrast administration by ED Sliding scale insulin with Accu-Cheks to maintain euglycemia Novulin R every 6 hours medium regimen Renal: Acute kidney injury Follow-up a.m. BMP. Further workup depending on studies with hydration Monitor urine output Accurate I's and O's Heme: Leukocytosis Normocytic anemia Monitor CBC daily. Follow trends No indications for transfusion of blood products at this time ID: Likely pneumonia Day #2 vancomycin, cefepime and azithromycin 07/13 -Blood cultures 2, sputum, urine Legionella and pneumococcal antigens all pending MSK: Osteoarthritis Chronic low back pain status post L4/S1 decompression PT evaluate and treat FEN: Hyponatremia Replace electrolytes as clinically indicated A.m. BMP pending. Monitor potassium while on bicarbonate drip initiated by overnight manager balance Access - Utilize peripheral IV. Central line if indicated Prophylaxis - GI - lanosprazole - DVT - SCD/heparin subcutaneous Critical Care: The total critical care time was 35 minutes. Time to perform other separately billable procedures was not included in the critical care time. Kolton Fishman MD Jul 14, 2017 04:39
[2017-07-14 05:46] LABS: BLOOD GAS BASE EXCESS -4.2 mmol/L (-2-2); BLOOD GAS CARBOXYHEMOGLOBIN 0.6 % (0-4); BLOOD GAS HCO3 20 mmol/L (22-26); BLOOD GAS METHEMOGLOBIN 0.7 % (0-2); BLOOD GAS O2 HGB SATURATION 98 % (90-100); BLOOD GAS OXYGEN CONTENT 15.9 Vol % (12.0-20.0); BLOOD GAS PCO2 37 mmHg (38-42); BLOOD GAS PO2 187 mmHG (61-120); BLOOD GAS TOTAL HGB 11.2 G/DL (12.0-16.0); CRITICAL VALUE NO; FIO2 50 %; OXYGEN DEVICE VENTILATOR; TEMP CORR TO 98.6
[2017-07-14 05:47] LABS: DRAW SITE RT RADIAL; NUMBER OF ARTERIAL PUNCTURES 1; STAT NO; ULNAR PULSE PRESENT
[2017-07-14] MEDS: INSULIN NovoLIN REGULAR SUPPLEMENTAL SCALE SQ SCH ×4 (06:00→18:00)
[2017-07-14] MEDS: CHLORHEXIDINE 0.12% (ORAL KIT) 15 ML CUP MT SCH ×2 (08:00→19:53)
[2017-07-14 08:43] LABS: AUTOMATED NEUTROPHIL # 18.1 TH/MM3 (1.8-7.7); BASOPHIL # 0.1 TH/MM3 (0-0.2); BASOPHIL % 0.5 % (0.0-2.0); HEMATOCRIT 31.8 % (39.0-51.0); HEMO FLAGS DIFF FINAL; LYMPH % 2.1 % (9.0-44.0); LYMPHOCYTE # 0.4 TH/MM3 (1.0-4.8); MEAN CELL VOLUME 88.8 FL (80.0-100.0); MEAN CORPUSCULAR HEMOGLOBIN 28.8 PG (27.0-34.0); MEAN CORPUSCULAR HGB CONC 32.5 % (32.0-36.0); MONO % 2.1 % (0.0-8.0); NEUT % 95.3 % (16.0-70.0); PLATELET COUNT 254 TH/MM3 (150-450); RED BLOOD COUNT 3.58 MIL/MM3 (4.50-5.90); RED CELL DISTRIBUTION WIDTH 14.8 % (11.6-17.2)
[2017-07-14 08:54] LABS: APTT (PATIENT) 34.5 SEC (24.3-30.1); INTERNATIONAL NORMALIZED RATIO 1.1 RATIO; PROTHROMBIN TIME - PATIENT 12.6 SEC (9.8-11.6)
[2017-07-14] MEDS: SODIUM CHLORIDE 0.9% FLUSH 10 ML FLUSH IV FLUSH SCH ×2 (09:00→19:53)
[2017-07-14] MEDS: ARTIFICIAL TEARS OPTH SOLN 15 ML BTL EACH EYE SCH ×3 (09:00→18:00)
[2017-07-14] MEDS: BENEPROTEIN POWDER 1 PACK G-TUBE SCH ×3 (09:00→18:00)
[2017-07-14] MEDS: DOCUSATE SODIUM 50 MG/SENNA 8.6 MG TAB PO SCH ×2 (09:00→19:53)
[2017-07-14] MEDS ORDERED: NON-FORMULARY DRUG (Multiple Vitamin 1 TAB) PO SCH (09:00)
[2017-07-14] MEDS: FLUTICASONE PROPIONATE 50 MCG/ACT 16 GM NASAL SPRAY EACH NARE SCH ×2 (09:00→21:00)
[2017-07-14 09:11] LABS: ALKALINE PHOSPHATASE 67 U/L (45-117); ALT (GPT) 39 U/L (12-78); ANION GAP 9 MEQ/L (5-15); AST (GOT) 116 U/L (15-37); BICARBONATE 22.1 MEQ/L (21.0-32.0); BLOOD UREA NITROGEN 21 MG/DL (7-18); CHLORIDE 105 MEQ/L (98-107); GLOMERULAR FILTRATION RATE 84 ML/MIN (>89); POTASSIUM 3.5 MEQ/L (3.5-5.1); SODIUM (NA) 136 MEQ/L (136-145); TOTAL BILIRUBIN ADULT 0.3 MG/DL (0.2-1.0)
[2017-07-14] MEDS: PRAMIPEXOLE DIHYDROCHLORIDE 0.25 MG TAB PO SCH ×2 (09:15→19:53)
[2017-07-14] MEDS: CEFEPIME INJ 2,000 MG in SODIUM CHLORIDE 0.9% INJ 100 ML IV SCH ×2 (09:15→19:51)
[2017-07-14] MEDS: TOPIRAMATE 25 MG TAB PO SCH ×2 (09:15→21:00)
[2017-07-14] MEDS: FLUoxetine HCL 20 MG CAP PO SCH (09:15)
[2017-07-14] MEDS: LANSOPRAZOLE SOLUTAB 30 MG TAB G-TUBE SCH (09:16)
[2017-07-14] MEDS: MULTIVITAMIN TAB PO SCH (09:16)
[2017-07-14] MEDS: ASPIRIN 325 MG TAB PO SCH (09:16)
[2017-07-14] MEDS: SODIUM BICARBONATE 8.4% INJ 150 MEQ in DEXTROSE 5% IN WATE 1000ML INJ 1,000 ML IV SCH ×2 (10:27)
--- NOTE | 2017-07-14 11:20 | EKG ---
Date Performed: 07/13/2017 Time Performed: 13:19:28 PTAGE: 61 years EKG: SINUS TACHYCARDIA NONSPECIFIC T-WAVE ABNORMALITY ABNORMAL RHYTHM ECG INTERPRETATION BASED O N A DEFAULT AGE OF 38 YEARS PREVIOUS TRACING 12/22/16 Compared to prior tracing no significant change DOCTOR: José Manuel Morley Interpretating Date/Time 07/14/2017 11:18:27
[2017-07-14] MEDS: AZITHROMYCIN INJ 500 MG in SODIUM CHLOR 0.9% 250 ML INJ 250 ML IV SCH (13:32)
[2017-07-14] MEDS: VANCOMYCIN INJ 1,500 MG in SODIUM CHLORID 0.9% 500 ML INJ 500 ML IV SCH (14:29)
[2017-07-14] MEDS: PRAVASTATIN SOD 80 MG TAB PO SCH (21:00)
[2017-07-14] MEDS: QUEtiapine FUMARATE 25 MG TAB PO SCH (21:00)
[2017-07-15] VITALS (18 sets, daily range): BP systolic 97–122; BP diastolic 53–65; PULSE 68–95; RESP 20–22; TEMP 98–98.9; O2SAT 96–100
[2017-07-15] MEDS: PROPOFOL 1000 MG/100 ML INJ 100 ML IV PRN ×6 (01:41→23:18)
[2017-07-15] MEDS: SODIUM BICARBONATE 8.4% INJ 150 MEQ in DEXTROSE 5% IN WATE 1000ML INJ 1,000 ML IV SCH ×2 (01:41)
[2017-07-15] MEDS: RESP: ALBUTEROL 2.5 MG/IPRATROPIUM 0.5 MG NEB (SCH) INH ×6 (03:32→23:59)
[2017-07-15] MEDS: CHLORHEXIDINE GLUCONATE 2 % 1 PACK (2 CLOTHS) TOP SCH (04:00)
[2017-07-15] MEDS: INSULIN NovoLIN REGULAR SUPPLEMENTAL SCALE SQ SCH ×4 (04:17→17:40)
[2017-07-15] MEDS: methylPREDNISolone SOD SUCC 40 MG/1 ML VIAL IV PUSH SCH ×3 (04:17→21:58)
[2017-07-15] MEDS: HEPARIN SODIUM - SQ 10,000 UNITS/ML VIAL SQ SCH ×3 (04:17→21:05)
[2017-07-15 06:14] LABS: BLOOD GAS BASE EXCESS 2.5 mmol/L (-2-2); BLOOD GAS CARBOXYHEMOGLOBIN 1.1 % (0-4); BLOOD GAS HCO3 27 mmol/L (22-26); BLOOD GAS METHEMOGLOBIN 1.1 % (0-2); BLOOD GAS O2 HGB SATURATION 96 % (90-100); BLOOD GAS OXYGEN CONTENT 16.1 Vol % (12.0-20.0); BLOOD GAS PCO2 43 mmHg (38-42); BLOOD GAS PO2 100 mmHg (61-120); BLOOD GAS TOTAL HGB 11.9 G/DL (12.0-16.0); TEMP CORR TO 98.6
[2017-07-15 06:15] LABS: CRITICAL VALUE NO; OXYGEN DEVICE VENT
[2017-07-15 06:16] LABS: DRAW SITE RT RADIAL; FIO2 40 %; NUMBER OF ARTERIAL PUNCTURES 1; STAT NO; ULNAR PULSE PRESENT; VENT SETTINGS SEE COMMENTS
--- NOTE | 2017-07-15 06:27 | RADRPT ---
EXAM DATE/TIME: 07/15/2017 05:30 [facility] COMPARISON: CHEST SINGLE AP, July 13, 2017, 15:22. INDICATIONS : Shortness of breath. MEDICAL HISTORY : Cardiovascular disease. Hypertension. Gastroesophageal reflux disease. SURGICAL HISTORY : Coronary artery stent. Tonsillectomy. ENCOUNTER: Subsequent ACUITY: 2 days PAIN SCORE: 0/10 LOCATION: Bilateral chest FINDINGS: A single view of the chest demonstrates endotracheal tube and nasogastric tube in satisfactory positi on. Mild basilar airspace disease. No effusion. No pneumothorax. CONCLUSION: Minimal basilar airspace disease most characteristic of atelectasis. Nasogastric tube and endotrachea l tube in satisfactory position. Walter Lee MD on July 15, 2017 at 6:25 Board Certified Radiologist. This report was verified electronically.
[2017-07-15 07:26] LABS: AUTOMATED NEUTROPHIL # 15.6 TH/MM3 (1.8-7.7); BASOPHIL % 0.1 % (0.0-2.0); HEMATOCRIT 30.2 % (39.0-51.0); HEMO FLAGS DIFF FINAL; LYMPH % 1.6 % (9.0-44.0); LYMPHOCYTE # 0.3 TH/MM3 (1.0-4.8); MEAN CELL VOLUME 88.3 FL (80.0-100.0); MEAN CORPUSCULAR HEMOGLOBIN 29.2 PG (27.0-34.0); MEAN CORPUSCULAR HGB CONC 33.1 % (32.0-36.0); MONO % 2.5 % (0.0-8.0); NEUT % 95.8 % (16.0-70.0); PLATELET COUNT 237 TH/MM3 (150-450); RED BLOOD COUNT 3.42 MIL/MM3 (4.50-5.90); RED CELL DISTRIBUTION WIDTH 14.7 % (11.6-17.2); WHITE BLOOD COUNT 16.3 TH/MM3 (4.0-11.0)
[2017-07-15 07:47] LABS: ALT (GPT) 59 U/L (12-78); ANION GAP 6 MEQ/L (5-15); AST (GOT) 198 U/L (15-37); BICARBONATE 28.4 MEQ/L (21.0-32.0); BLOOD UREA NITROGEN 20 MG/DL (7-18); CHLORIDE 105 MEQ/L (98-107); GLOMERULAR FILTRATION RATE 90 ML/MIN (>89); MAGNESIUM 2.3 MG/DL (1.5-2.5); POTASSIUM 3.8 MEQ/L (3.5-5.1); SODIUM (NA) 139 MEQ/L (136-145)
[2017-07-15 07:49] LABS: ALKALINE PHOSPHATASE 63 U/L (45-117); TOTAL BILIRUBIN ADULT 0.3 MG/DL (0.2-1.0)
[2017-07-15] MEDS: CHLORHEXIDINE 0.12% (ORAL KIT) 15 ML CUP MT SCH ×2 (07:59→21:04)
[2017-07-15] MEDS: PRAMIPEXOLE DIHYDROCHLORIDE 0.25 MG TAB PO SCH ×2 (08:00→21:06)
[2017-07-15] MEDS: FLUoxetine HCL 20 MG CAP PO SCH (08:00)
[2017-07-15] MEDS: LANSOPRAZOLE SOLUTAB 30 MG TAB G-TUBE SCH (08:00)
[2017-07-15] MEDS: ASPIRIN 325 MG TAB PO SCH (08:00)
[2017-07-15] MEDS: DOCUSATE SODIUM 50 MG/SENNA 8.6 MG TAB PO SCH ×2 (08:00→21:06)
[2017-07-15] MEDS: MULTIVITAMIN TAB PO SCH (08:00)
[2017-07-15] MEDS: TOPIRAMATE 25 MG TAB PO SCH ×2 (08:00→21:06)
[2017-07-15] MEDS: FLUTICASONE PROPIONATE 50 MCG/ACT 16 GM NASAL SPRAY EACH NARE SCH ×2 (08:08→21:58)
[2017-07-15] MEDS: BENEPROTEIN POWDER 1 PACK G-TUBE SCH ×3 (08:08→17:40)
[2017-07-15] MEDS: CEFEPIME INJ 2,000 MG in SODIUM CHLORIDE 0.9% INJ 100 ML IV SCH ×2 (08:13→21:04)
[2017-07-15] MEDS: ARTIFICIAL TEARS OPTH SOLN 15 ML BTL EACH EYE SCH ×3 (08:13→17:40)
[2017-07-15] MEDS: VANCOMYCIN INJ 1,500 MG in SODIUM CHLORID 0.9% 500 ML INJ 500 ML IV SCH (08:49)
[2017-07-15] MEDS: SODIUM CHLORIDE 0.9% FLUSH 10 ML FLUSH IV FLUSH SCH ×2 (08:49→21:06)
[2017-07-15] MEDS: fentaNYL DRIP 250 ML IV PRN (10:10)
[2017-07-15] MEDS: AZITHROMYCIN INJ 500 MG in SODIUM CHLOR 0.9% 250 ML INJ 250 ML IV SCH (13:11)
[2017-07-15] MEDS ORDERED: POTASSIUM PHOSPHATE MONOBASIC 500 MG TAB PO/TUBE PRN (13:30)
[2017-07-15] MEDS ORDERED: POTASSIUM CHLOR 20 MEQ PREMIX 100 ML IV PRN ×2 (13:30)
[2017-07-15] MEDS ORDERED: POTASSIUM CHLORIDE 25 MEQ EFFERVESCENT TAB PO PRN (13:30)
[2017-07-15] MEDS ORDERED: POTASSIUM CHLOR 40 MEQ PREMIX 100 ML IV PRN ×2 (13:30)
[2017-07-15] MEDS ORDERED: POTASSIUM PHOSPHATE INJ 30 MMOL in SODIUM CHLOR 0.9% 250 ML INJ 250 ML IV PRN (13:30)
[2017-07-15] MEDS ORDERED: MAGNESIUM SULFATE INJ 2 GM in SODIUM CHLORIDE 0.9% INJ 96 ML IV PRN (13:30)
[2017-07-15] MEDS ORDERED: MAGNESIUM SULFATE INJ 4 GM in SODIUM CHLORIDE 0.9% INJ 92 ML IV PRN (13:30)
[2017-07-15] MEDS ORDERED: SODIUM PHOSPHATE INJ 30 MMOL in SODIUM CHLOR 0.9% 250 ML INJ 240 ML IV PRN (13:30)
[2017-07-15] MEDS ORDERED: MAGNESIUM OXIDE 400 MG TAB PO PRN (13:30)
[2017-07-15] MEDS ORDERED: POTASSIUM PHOSPHATE MONOBASIC 500 MG TAB PO PRN (13:30)
--- NOTE | 2017-07-15 13:33 | HHI.CCPN ---
Subjective Remarks/Hospital Course This is a 61-year-old man. Date of admission 07/13/2017. Past medical history includes coronary disease status post 5 stents, dyslipidemia, diabetes mellitus, morbid obesity, hypertension, BPH, osteoarthritis and chronic pain syndrome. 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 She has been treated outpatient with prednisone. He has been treated outpatient with dextromethorphan and prednisone as well. Today, he acutely presents to the emergency department complaining of productive cough and shortness of breath. He states for the past several days had increased cough cold symptoms, productive of thick yellowish phlegm, with increased shortness of breath and difficulty breathing. He uses an inhaler as needed, but denies any history of COPD. he complains of fevers and chills.. Denies any chest pain. No leg swelling. No other complaints. Initially the patient was placed on BiPAP with minimal success. Is given 125 mg of's methylprednisolone, 1 g ceftriaxone and 500 mg IV azithromycin. Despite this, patient was quite tachypneic. Chest x-ray revealed possible left lower lobe in July. Due to his respiratory distress patient was intubated after receiving 20 mg etomidate and [address] pulmonary exam revealed no central pulmonary embolus. Interstitial inflammation likely pneumonia would fit the clinical picture. We were asked to admit. SUBJECTIVE: 07/14: Afebrile. No acute issues Overnight. FiO2 down to 50%. Real-time sedation vacation today. Lactate is clear. 07/15: Afebrile. FiO2 decreased to 40%. Bicarbonate infusion discontinued. He Pap trials initiated patient failed fentanyl infusion added to medication regimen, patient has history of chronic back pain. Lamp for continue CPAP trials. Objective Vital Signs Date Time Temp Pulse Resp B/P (MAP) Pulse Ox O2 Delivery O2 Flow Rate FiO2 07/15/17 12:00 68 07/15/17 11:47 99 40 07/15/17 04:00 98.6 20 113/56 (75) 07/13/17 16:48 Ventilator 07/13/17 13:25 4.00 Intake and Output 07/15/17 07/15/17 07/16/17 08:00 16:00 00:00 Intake Total 3264.3 ml 732 ml Output Total 700 ml Balance 2564.3 ml 732 ml Result Diagram: 07/15/17 0618 07/15/17 0618 Other Results Microbiology Date/Time Source Procedure Growth Status 07/13/17 19:45 Sputum Endotracheal Gram Stain - Final Complete 07/13/17 19:45 Sputum Endotracheal Sputum Culture - Final NO GROWTH IN 48 HOURS. Complete 07/13/17 15:00 Urine Catheterized Urine Legionella Antigen - Final PRESUMPTIVE NEGATIVE FOR LEGIONELLA P... Complete 07/13/17 15:00 Urine Catheterized Urine Streptococcus pneumoniae Antigen (M - Final PRESUMPTIVE NEGATIVE FOR STREPTOCOCCU... Complete 07/13/17 15:00 Urine Random Urine Urine Culture - Final NO GROWTH IN 48 HOURS. Complete Laboratory Tests Test 07/15/17 05:57 Blood Gas Puncture Site RT RADIAL Blood Gas Patient Temperature 98.6 Blood Gas HCO3 27 mmol/L (22-26) Blood Gas Base Excess 2.5 mmol/L (-2-2) Blood Gas Oxygen Saturation 96 % (90-100) Arterial Blood pH 7.41 (7.380-7.420) Arterial Blood Partial Pressure CO2 43 mmHg (38-42) Arterial Blood Partial Pressure O2 100 mmHg (61-120) Arterial Blood Oxygen Content 16.1 Vol % (12.0-20.0) Arterial Blood Carboxyhemoglobin 1.1 % (0-4) Arterial Blood Methemoglobin 1.1 % (0-2) Blood Gas Hemoglobin 11.9 G/DL (12.0-16.0) Oxygen Delivery Device VENT Blood Gas Ventilator Setting SEE COMMENTS Blood Gas Inspired Oxygen 40 % Imaging Last Impressions Chest X-Ray 07/13/17 1323 Signed Impressions: Service Date/Time: Thursday, July 13, 2017 13:52 - CONCLUSION: Left basilar airspace disease. Jayjay Samuel MD CT Angiography 07/13/17 0000 Signed Impressions: Service Date/Time: Thursday, July 13, 2017 15:46 - CONCLUSION: 1. Central airspace disease or bronchial wall thickening and interstitial prominence suggesting mild pneumonitis or pulmonary edema. 2. No evidence of pulmonary embolism. 3. Tip of endotracheal tube in the cardia of the stomach. Jayjay Samuel MD Objective Remarks GENERAL: 61-year-old male, critically ill currently orotracheally intubated and sedated SKIN: Warm and dry. HEAD: Atraumatic. Normocephalic. EYES: Pupils equal and round about 3 mm bilaterally and reactive. No conjunctival hemorrhage. No scleral icterus. No injection or drainage. ENT: No nasal bleeding or discharge. Mucous membranes pink and moist. NECK: Trachea midline. No JVD. CARDIOVASCULAR: Regular rate and rhythm. S1, S2. No acute without murmur RESPIRATORY: Clear to auscultation. Bilateral chest excursion normal pulmonary secretions. GASTROINTESTINAL: Abdomen soft, non-tender, obese. Hypoactive bowel sounds appreciated. Hepatic and splenic margins not palpable. MUSCULOSKELETAL: Extremities with nonpitting B/L upper and lower extremity1+ . No obvious deformities. NEUROLOGICAL: GCS 11 T, off sedation. Moves extremities 4. Urinary Catheter: Yes Thapa insert reason: Measure Accurate Output Date of Insertion: Jul 13, 2017 A/P Assessment and Plan Neuro/Psych: History of depression/anxiety Insomnia Chronic back pain Patient is currently propofol infusion 30mcgs, [id number] mcgs infusion as needed for sedation/analgesia while intubated for ventilator synchrony Goal of RASS -2 Daily sedation vacation Holding home medication of diphenhydramine 25 mg at night for insomnia Holding cyclobenzaprine 5 mill grams 3 times a day for muscle relaxation Resume fluoxetine 20 mg by mouth daily for depression Resume topiramate 75 mg by mouth twice a day for pain management Resume Quetiapine 25 mg at night for depression/anxiety Resume pramipexole 0.5 mg by mouth twice a day CV: Chronic diastolic heart failure Hypertension Dyslipidemia Lactic acidosis - resolved 2-D echocardiogram 01/17 revealed EF 55-60%. Grade 1 diastolic dysfunction. Left atrium left. Mild MR/TR. PAP 35 mmHg Continue aspirin 25 mg by mouth daily for coronary artery disease Holding metoprolol extended release 25 mg daily Holding lisinopril 20 mg by mouth twice a day in light of acute kidney injury. Resume when clinically indicated Resume simvastatin 80 mg by mouth daily for dyslipidemia Bicarbonate infusion discontinued 07/15 Resp: Ongoing tobaccoism Acute hypoxic hypercapnic respiratory fever secondary to pneumonia PRVC 20//11/07/49 Ventilator bundle Albuterol/ipratropium aerosols every 4 hours with albuterol aerosol every 2 hours. Dyspnea CTPA 07/13 revealed no signs of pulmonary wasn't helpful with this central interstitial prominence likely pneumonia He has an albuterol inhaler he uses as needed at home Begin CPAP trials GI: Gastroesophageal reflux disease Tube feeds Glucerna 1.5 at 40 cc/hour-minimal residual Continue lansoprazole 30 mg by tube daily for gastroesophageal reflux disease Docusate sodium/senna 1 tab twice a day for bowel regimen Patient is on either ranitidine 75 mill grams daily or omeprazole 40 mg by mouth daily home. : BPH ED Thapa catheter for accurate I's and O's in a critically ill patient Endo: Diabetes mellitus Holding metformin 500 mill grams by mouth twice a day in light of acute kidney injury/lactic acidosis/recent contrast administration by ED Sliding scale insulin with Accu-Cheks to maintain euglycemia Novulin R every 6 hours medium regimen Renal: Acute kidney injury Follow-up a.m. BMP. Further workup depending on studies with hydration Monitor urine output Accurate I's and O's Heme: Leukocytosis Normocytic anemia Monitor CBC daily. Follow trends No indications for transfusion of blood products at this time WBC decreasing 19->16 ID: Likely pneumonia Day #3 vancomycin, cefepime and azithromycin 9/10 -Blood cultures 2, sputum, urine Legionella and pneumococcal antigens all pending MSK: Osteoarthritis Chronic low back pain status post L4/S1 decompression PT evaluate and treat FEN: Hyponatremia Replace electrolytes as clinically indicated Access - Utilize peripheral IV. Central line if indicated Prophylaxis - GI - lanosprazole - DVT - SCD/heparin subcutaneous Critical Care: The total critical care time was 30 minutes. Time to perform other separately billable procedures was not included in the critical care time. Physician Christa Torres MD Jul 15, 2017 13:33
[2017-07-15 14:30] LABS: BLOOD GAS BASE EXCESS 2.5 mmol/L (-2-2); BLOOD GAS HCO3 28 mmol/L (22-26); BLOOD GAS O2 HGB SATURATION 97 % (90-100); BLOOD GAS OXYGEN CONTENT 14.5 Vol % (12.0-20.0); BLOOD GAS PCO2 53 mmHg (38-42); BLOOD GAS PO2 128 mmHg (61-120); BLOOD GAS TOTAL HGB 10.5 G/DL (12.0-16.0); TEMP CORR TO 98.6
[2017-07-15 14:31] LABS: CRITICAL VALUE YES; OXYGEN DEVICE VENTILATOR
[2017-07-15 14:33] LABS: DRAW SITE RT RADIAL; FIO2 40 %; NUMBER OF ARTERIAL PUNCTURES 1; STAT NO; ULNAR PULSE PRESENT
[2017-07-15] MEDS: QUEtiapine FUMARATE 25 MG TAB PO SCH (21:06)
[2017-07-15] MEDS: PRAVASTATIN SOD 80 MG TAB PO SCH (21:06)
[2017-07-16] VITALS (18 sets, daily range): BP systolic 108–181; BP diastolic 57–105; PULSE 65–116; RESP 11–22; TEMP 98.2–98.9; O2SAT 94–99
[2017-07-16] MEDS: fentaNYL DRIP 250 ML IV PRN ×2 (02:15→16:28)
[2017-07-16] MEDS ORDERED: PHARMACY ORDERED LAB ONE (02:45)
[2017-07-16] MEDS: VANCOMYCIN INJ 1,500 MG in SODIUM CHLORID 0.9% 500 ML INJ 500 ML IV SCH ×2 (03:00→20:36)
[2017-07-16] MEDS: CHLORHEXIDINE GLUCONATE 2 % 1 PACK (2 CLOTHS) TOP SCH (03:56)
[2017-07-16] MEDS: RESP: ALBUTEROL 2.5 MG/IPRATROPIUM 0.5 MG NEB (SCH) INH ×6 (04:34→23:55)
[2017-07-16] MEDS: PROPOFOL 1000 MG/100 ML INJ 100 ML IV PRN ×2 (04:54→13:28)
[2017-07-16] MEDS: HEPARIN SODIUM - SQ 10,000 UNITS/ML VIAL SQ SCH ×3 (04:54→20:35)
[2017-07-16] MEDS: methylPREDNISolone SOD SUCC 40 MG/1 ML VIAL IV PUSH SCH ×3 (04:54→20:35)
--- NOTE | 2017-07-16 06:22 | RADRPT ---
EXAM DATE/TIME: 07/16/2017 05:00 [facility] COMPARISON: CHEST SINGLE AP, July 15, 2017, 5:30. INDICATIONS : Short of breath. MEDICAL HISTORY : None. SURGICAL HISTORY : None. ENCOUNTER: Subsequent ACUITY: 1 week PAIN SCORE: 0/10 LOCATION: Bilateral chest FINDINGS: Endotracheal tube and nasogastric tube in good position. Mild basilar dependent opacity in the lungs similar to July 15. Cardiomegaly. CONCLUSION: 1. Cardiomegaly with mild basilar opacity similar to prior exam. Support apparatus unchanged. Walter Lee MD on July 16, 2017 at 6:20 Board Certified Radiologist. This report was verified electronically.
[2017-07-16] MEDS: INSULIN NovoLIN REGULAR SUPPLEMENTAL SCALE SQ SCH ×4 (06:28→18:00)
[2017-07-16 07:32] LABS: HEMATOCRIT 31.4 % (39.0-51.0); MEAN CELL VOLUME 89.3 FL (80.0-100.0); MEAN CORPUSCULAR HEMOGLOBIN 29.8 PG (27.0-34.0); MEAN CORPUSCULAR HGB CONC 33.4 % (32.0-36.0); PLATELET COUNT 249 TH/MM3 (150-450); RED BLOOD COUNT 3.52 MIL/MM3 (4.50-5.90); RED CELL DISTRIBUTION WIDTH 14.9 % (11.6-17.2); REVIEW FLAG FINAL; WHITE BLOOD COUNT 10.1 TH/MM3 (4.0-11.0)
[2017-07-16 07:54] LABS: BICARBONATE 28.1 MEQ/L (21.0-32.0); MAGNESIUM 2.4 MG/DL (1.5-2.5)
[2017-07-16] MEDS: BENEPROTEIN POWDER 1 PACK G-TUBE SCH ×3 (09:00→16:44)
[2017-07-16] MEDS: FLUTICASONE PROPIONATE 50 MCG/ACT 16 GM NASAL SPRAY EACH NARE SCH ×2 (09:27→20:36)
[2017-07-16] MEDS: ARTIFICIAL TEARS OPTH SOLN 15 ML BTL EACH EYE SCH ×3 (09:28→16:44)
[2017-07-16] MEDS: TOPIRAMATE 25 MG TAB PO SCH ×2 (09:29→20:35)
[2017-07-16] MEDS: FLUoxetine HCL 20 MG CAP PO SCH (09:29)
[2017-07-16] MEDS: CHLORHEXIDINE 0.12% (ORAL KIT) 15 ML CUP MT SCH ×2 (09:29→20:35)
[2017-07-16] MEDS: CEFEPIME INJ 2,000 MG in SODIUM CHLORIDE 0.9% INJ 100 ML IV SCH ×2 (09:29→20:36)
[2017-07-16] MEDS: LANSOPRAZOLE SOLUTAB 30 MG TAB G-TUBE SCH (09:29)
[2017-07-16] MEDS: ASPIRIN 325 MG TAB PO SCH (09:29)
[2017-07-16] MEDS: PRAMIPEXOLE DIHYDROCHLORIDE 0.25 MG TAB PO SCH ×2 (09:30→20:37)
[2017-07-16] MEDS: DOCUSATE SODIUM 50 MG/SENNA 8.6 MG TAB PO SCH ×2 (09:30→20:34)
[2017-07-16] MEDS: SODIUM CHLORIDE 0.9% FLUSH 10 ML FLUSH IV FLUSH SCH ×2 (09:30→20:36)
[2017-07-16] MEDS: MULTIVITAMIN TAB PO SCH (09:30)
[2017-07-16] MEDS: AZITHROMYCIN INJ 500 MG in SODIUM CHLOR 0.9% 250 ML INJ 250 ML IV SCH (13:28)
--- NOTE | 2017-07-16 16:05 | HHI.CCPN ---
Subjective Remarks/Hospital Course This is a 61-year-old man. Date of admission 07/13/2017. Past medical history includes coronary disease status post 5 stents, dyslipidemia, diabetes mellitus, morbid obesity, hypertension, BPH, osteoarthritis and chronic pain syndrome. His is a [employer] employee who has been "sick" for the past month. She has been treated outpatient with prednisone. He has been treated outpatient with dextromethorphan and prednisone as well. Today, he acutely presents to the emergency department complaining of productive cough and shortness of breath. He states for the past several days had increased cough cold symptoms, productive of thick yellowish phlegm, with increased shortness of breath and difficulty breathing. He uses an inhaler as needed, but denies any history of COPD. he complains of fevers and chills.. Denies any chest pain. No leg swelling. No other complaints. Initially the patient was placed on BiPAP with minimal success. Is given 125 mg of's methylprednisolone, 1 g ceftriaxone and 500 mg IV azithromycin. Despite this, patient was quite tachypneic. Chest x-ray revealed possible left lower lobe in July. Due to his respiratory distress patient was intubated after receiving 20 mg etomidate and [address] pulmonary exam revealed no central pulmonary embolus. Interstitial inflammation likely pneumonia would fit the clinical picture. We were asked to admit. SUBJECTIVE: 07/14: Afebrile. No acute issues Overnight. FiO2 down to 50%. Real-time sedation vacation today. Lactate is clear. 07/15: Afebrile. FiO2 decreased to 40%. Bicarbonate infusion discontinued. He Pap trials initiated patient failed fentanyl infusion added to medication regimen, patient has history of chronic back pain. Lamp for continue CPAP trials. 07/16: much more awake. on PSV, but needing some extra support, not ready for extubation today. wbc downtrending, afebrile. Objective Vital Signs Date Time Temp Pulse Resp B/P (MAP) Pulse Ox O2 Delivery O2 Flow Rate FiO2 07/16/17 15:36 99 40 07/16/17 14:00 116 07/16/17 12:00 98.9 22 141/67 (91) 07/13/17 16:48 Ventilator 07/13/17 13:25 4.00 Intake and Output 07/16/17 07/16/17 07/17/17 08:00 16:00 00:00 Intake Total 1225 ml 654 ml Output Total 500 ml Balance 725 ml 654 ml Result Diagram: 07/16/17 0634 07/16/17 0634 Other Results Microbiology Date/Time Source Procedure Growth Status 07/13/17 19:45 Sputum Endotracheal Gram Stain - Final Complete 07/13/17 19:45 Sputum Endotracheal Sputum Culture - Final NO GROWTH IN 48 HOURS. Complete Imaging Last Impressions Chest X-Ray 07/13/17 1323 Signed Impressions: Service Date/Time: Thursday, July 13, 2017 13:52 - CONCLUSION: Left basilar airspace disease. Jayjay Samuel MD CT Angiography 07/13/17 0000 Signed Impressions: Service Date/Time: Thursday, July 13, 2017 15:46 - CONCLUSION: 1. Central airspace disease or bronchial wall thickening and interstitial prominence suggesting mild pneumonitis or pulmonary edema. 2. No evidence of pulmonary embolism. 3. Tip of endotracheal tube in the cardia of the stomach. Jayjay Samuel MD Objective Remarks GENERAL: 61-year-old male, critically ill currently orotracheally intubated and sedated SKIN: Warm and dry. HEAD: Atraumatic. Normocephalic. EYES: Pupils equal and round about 3 mm bilaterally and reactive. No conjunctival hemorrhage. No scleral icterus. No injection or drainage. ENT: No nasal bleeding or discharge. Mucous membranes pink and moist. NECK: Trachea midline. No JVD. CARDIOVASCULAR: Regular rate and rhythm. RESPIRATORY: Clear to auscultation. Bilateral chest excursion normal pulmonary secretions. GASTROINTESTINAL: Abdomen soft, non-tender, obese. MUSCULOSKELETAL: Extremities with nonpitting B/L upper and lower extremity1+ . No obvious deformities. NEUROLOGICAL: GCS 11 T, off sedation. Moves extremities 4. A/P Assessment and Plan Assessment: 61yM with community acquired pneumonia and acute hypoxic respiratory failure. clinically improving. will start forced diuresis today in anticipation of possible extubation tomorrow. Neuro/Psych: History of depression/anxiety Insomnia Chronic back pain Propofol/fentanyl for RASS goal -2. Goal of RASS -2 Daily sedation vacation Holding home medication of diphenhydramine 25 mg at night for insomnia Holding cyclobenzaprine 5 mill grams 3 times a day for muscle relaxation Fluoxetine 20 mg by mouth daily for depression Topiramate 75 mg by mouth twice a day for pain management Quetiapine 25 mg at night for depression/anxiety Pramipexole 0.5 mg by mouth twice a day CV: Chronic diastolic heart failure Hypertension Dyslipidemia Lactic acidosis - resolved 2-D echocardiogram 01/17 revealed EF 55-60%. Grade 1 diastolic dysfunction. Left atrium left. Mild MR/TR. PAP 35 mmHg Continue aspirin 25 mg by mouth daily for coronary artery disease Holding metoprolol extended release 25 mg daily restart home lisinopril (home dose 20mg daily), start at 10mg daily. Simvastatin 80 mg by mouth daily for dyslipidemia Bicarbonate infusion discontinued 07/15 Resp: Ongoing tobaccoism Acute hypoxic hypercapnic respiratory fever secondary to pneumonia- resolving. PSV 10/5/40% Ventilator bundle Albuterol/ipratropium aerosols every 4 hours with albuterol aerosol every 2 hours. Dyspnea CTPA 07/13 revealed no signs of pulmonary wasn't helpful with this central interstitial prominence likely pneumonia He has an albuterol inhaler he uses as needed at home continue CPAP trials. too weak today for extubation. will try again tomorrow. GI: Gastroesophageal reflux disease Acute protein calorie malnutrition- moderate Tube feeds Glucerna 1.5 at 40 cc/hour-minimal residual Continue lansoprazole 30 mg by tube daily for gastroesophageal reflux disease Docusate sodium/senna 1 tab twice a day for bowel regimen Patient is on either ranitidine 75 mill grams daily or omeprazole 40 mg by mouth daily home. : BPH ED Thapa catheter for accurate I's and O's in a critically ill patient Endo: Diabetes mellitus Holding metformin 500 mill grams by mouth twice a day in light of acute kidney injury/lactic acidosis/recent contrast administration by ED Sliding scale insulin with Accu-Cheks to maintain euglycemia Novulin R every 6 hours medium regimen Renal: Acute kidney injury- resolved. acute intravascular volume overload Monitor urine output Accurate I's and O's Lasix 40mg iv x 1 saline lock ivf. Heme: Leukocytosis Normocytic anemia Monitor CBC daily. Follow trends No indications for transfusion of blood products at this time WBC decreasing 19->16 ID: Likely pneumonia Day #4 vancomycin, cefepime and azithromycin 9/10 -Blood cultures 2, sputum, urine Legionella and pneumococcal antigens all negative MSK: Osteoarthritis Chronic low back pain status post L4/S1 decompression PT evaluate and treat FEN: Hyponatremia Replace electrolytes as clinically indicated Access - Utilize peripheral IV. Central line if indicated Prophylaxis - GI - lanosprazole - DVT - SCD/heparin subcutaneous Kevin Mejia MD Jul 16, 2017 16:05
[2017-07-16] MEDS ORDERED: FUROSEMIDE 40 MG/4 ML VIAL IV PUSH ONE (16:30)
[2017-07-16] MEDS: LISINOPRIL 10 MG TAB PO SCH (16:43)
[2017-07-16] MEDS: PRAVASTATIN SOD 80 MG TAB PO SCH (20:34)
[2017-07-16] MEDS: QUEtiapine FUMARATE 25 MG TAB PO SCH (20:35)
[2017-07-17] VITALS (17 sets, daily range): BP systolic 108–175; BP diastolic 56–77; PULSE 63–127; RESP 16–22; TEMP 97.9–99.3; O2SAT 90–98
[2017-07-17] MEDS: fentaNYL DRIP 250 ML IV PRN (02:39)
[2017-07-17] MEDS: PROPOFOL 1000 MG/100 ML INJ 100 ML IV PRN ×2 (02:40→02:43)
[2017-07-17] MEDS: HEPARIN SODIUM - SQ 10,000 UNITS/ML VIAL SQ SCH ×3 (02:40→20:20)
[2017-07-17] MEDS: CHLORHEXIDINE GLUCONATE 2 % 1 PACK (2 CLOTHS) TOP SCH (02:41)
[2017-07-17] MEDS: RESP: ALBUTEROL 2.5 MG/IPRATROPIUM 0.5 MG NEB (SCH) INH ×5 (03:31→20:46)
[2017-07-17 04:15] LABS: HEMATOCRIT 29.6 % (39.0-51.0); MEAN CELL VOLUME 89.7 FL (80.0-100.0); MEAN CORPUSCULAR HEMOGLOBIN 29.2 PG (27.0-34.0); MEAN CORPUSCULAR HGB CONC 32.6 % (32.0-36.0); PLATELET COUNT 237 TH/MM3 (150-450); RED CELL DISTRIBUTION WIDTH 15.2 % (11.6-17.2); REVIEW FLAG FINAL; WHITE BLOOD COUNT 12.4 TH/MM3 (4.0-11.0)
[2017-07-17] MEDS: INSULIN NovoLIN REGULAR SUPPLEMENTAL SCALE SQ SCH ×4 (06:00→17:55)
[2017-07-17] MEDS: methylPREDNISolone SOD SUCC 40 MG/1 ML VIAL IV PUSH SCH ×3 (06:00→22:00)
[2017-07-17] MEDS: CHLORHEXIDINE 0.12% (ORAL KIT) 15 ML CUP MT SCH (07:54)
[2017-07-17] MEDS: CEFEPIME INJ 2,000 MG in SODIUM CHLORIDE 0.9% INJ 100 ML IV SCH ×2 (07:54→20:21)
[2017-07-17] MEDS: LANSOPRAZOLE SOLUTAB 30 MG TAB G-TUBE SCH (07:55)
[2017-07-17] MEDS: PRAMIPEXOLE DIHYDROCHLORIDE 0.25 MG TAB PO SCH ×2 (07:55→20:22)
[2017-07-17] MEDS: FLUoxetine HCL 20 MG CAP PO SCH (07:55)
[2017-07-17] MEDS: LISINOPRIL 10 MG TAB PO SCH (07:55)
[2017-07-17] MEDS: ASPIRIN 325 MG TAB PO SCH (07:55)
[2017-07-17] MEDS: MULTIVITAMIN TAB PO SCH (07:55)
[2017-07-17] MEDS: DOCUSATE SODIUM 50 MG/SENNA 8.6 MG TAB PO SCH ×2 (07:55→20:23)
[2017-07-17] MEDS: TOPIRAMATE 25 MG TAB PO SCH ×2 (07:56→20:22)
[2017-07-17] MEDS: SODIUM CHLORIDE 0.9% FLUSH 10 ML FLUSH IV FLUSH SCH ×2 (07:56→20:23)
[2017-07-17] MEDS: ARTIFICIAL TEARS OPTH SOLN 15 ML BTL EACH EYE SCH ×3 (08:11→17:55)
[2017-07-17] MEDS: FLUTICASONE PROPIONATE 50 MCG/ACT 16 GM NASAL SPRAY EACH NARE SCH ×2 (08:12→20:24)
[2017-07-17] MEDS: BENEPROTEIN POWDER 1 PACK G-TUBE SCH ×3 (08:12→17:55)
[2017-07-17] MEDS ORDERED: FUROSEMIDE 40 MG/4 ML VIAL IV PUSH ONE (10:30)
[2017-07-17] MEDS ORDERED: RESP: RACEPINEPHRINE 2.25% 0.5 ML NEB ONE (11:30)
[2017-07-17] MEDS: AZITHROMYCIN INJ 500 MG in SODIUM CHLOR 0.9% 250 ML INJ 250 ML IV SCH (14:31)
[2017-07-17] MEDS ORDERED: PHARMACY ORDERED LAB ONE (14:45)
[2017-07-17 15:05] LABS: BLOOD GAS BASE EXCESS 5.8 mmol/L (-2-2); BLOOD GAS CARBOXYHEMOGLOBIN 1.2 % (0-4); BLOOD GAS HCO3 31 mmol/L (22-26); BLOOD GAS O2 HGB SATURATION 93 % (90-100); BLOOD GAS OXYGEN CONTENT 14.1 Vol % (12.0-20.0); BLOOD GAS PCO2 51 mmHg (38-42); BLOOD GAS PO2 77 mmHg (61-120); BLOOD GAS TOTAL HGB 10.8 G/DL (12.0-16.0); TEMP CORR TO 98.6
[2017-07-17 15:06] LABS: CRITICAL VALUE YES; DRAW SITE LT RADIAL; LITER FLOW 5 L/M; NUMBER OF ARTERIAL PUNCTURES 1; OXYGEN DEVICE NASAL CANNULA; STAT YES; ULNAR PULSE Y
[2017-07-17] MEDS: LABETALOL HCL 100 MG/20 ML VIAL IV PUSH PRN (15:09)
[2017-07-17] MEDS: VANCOMYCIN INJ 1,500 MG in SODIUM CHLORID 0.9% 500 ML INJ 500 ML IV SCH (15:09)
[2017-07-17] MEDS ORDERED: ALUMINUM/MAGNESIUM/SIMETH 30 ML CUP PO SCH (19:30)
[2017-07-17] MEDS: PRAVASTATIN SOD 80 MG TAB PO SCH (20:22)
[2017-07-17] MEDS: QUEtiapine FUMARATE 25 MG TAB PO SCH (20:23)
--- NOTE | 2017-07-17 22:10 | HHI.CCPN ---
Subjective Remarks/Hospital Course This is a 61-year-old man. Date of admission 07/13/2017. Past medical history includes coronary disease status post 5 stents, dyslipidemia, diabetes mellitus, morbid obesity, hypertension, BPH, osteoarthritis and chronic pain syndrome. His is a [employer] employee who has been "sick" for the past month. She has been treated outpatient with prednisone. He has been treated outpatient with dextromethorphan and prednisone as well. Today, he acutely presents to the emergency department complaining of productive cough and shortness of breath. He states for the past several days had increased cough cold symptoms, productive of thick yellowish phlegm, with increased shortness of breath and difficulty breathing. He uses an inhaler as needed, but denies any history of COPD. he complains of fevers and chills.. Denies any chest pain. No leg swelling. No other complaints. Initially the patient was placed on BiPAP with minimal success. Is given 125 mg of's methylprednisolone, 1 g ceftriaxone and 500 mg IV azithromycin. Despite this, patient was quite tachypneic. Chest x-ray revealed possible left lower lobe in July. Due to his respiratory distress patient was intubated after receiving 20 mg etomidate and [address] pulmonary exam revealed no central pulmonary embolus. Interstitial inflammation likely pneumonia would fit the clinical picture. We were asked to admit. SUBJECTIVE: 07/14: Afebrile. No acute issues Overnight. FiO2 down to 50%. Real-time sedation vacation today. Lactate is clear. 07/15: Afebrile. FiO2 decreased to 40%. Bicarbonate infusion discontinued. He Pap trials initiated patient failed fentanyl infusion added to medication regimen, patient has history of chronic back pain. Lamp for continue CPAP trials. 07/16: much more awake. on PSV, but needing some extra support, not ready for extubation today. wbc downtrending, afebrile. 07/17: clinically improving. on SBT today. Objective Vital Signs Date Time Temp Pulse Resp B/P (MAP) Pulse Ox O2 Delivery O2 Flow Rate FiO2 07/17/17 20:47 96 Nasal Cannula 3.00 07/17/17 18:00 85 07/17/17 16:00 99.3 21 162/77 (105) 07/17/17 09:34 40 Intake and Output 9/07/17/17 07/18/17 08:00 16:00 00:00 Intake Total 830 ml 778 ml 0 ml Output Total 1400 ml 2550 ml Balance -570 ml 778 ml -2550 ml Result Diagram: 07/17/17 0405 07/17/17 0405 Other Results Laboratory Tests Test 07/17/17 14:50 Blood Gas Puncture Site LT RADIAL Blood Gas Patient Temperature 98.6 Blood Gas HCO3 31 mmol/L (22-26) Blood Gas Base Excess 5.8 mmol/L (-2-2) Blood Gas Oxygen Saturation 93 % (90-100) Arterial Blood pH 7.39 (7.380-7.420) Arterial Blood Partial Pressure CO2 51 mmHg (38-42) Arterial Blood Partial Pressure O2 77 mmHg (61-120) Arterial Blood Oxygen Content 14.1 Vol % (12.0-20.0) Arterial Blood Carboxyhemoglobin 1.2 % (0-4) Arterial Blood Methemoglobin 1.0 % (0-2) Blood Gas Hemoglobin 10.8 G/DL (12.0-16.0) Oxygen Delivery Device NASAL CANNULA Blood Gas Liter Flow 5 L/M Imaging Last Impressions Chest X-Ray 07/13/17 1323 Signed Impressions: Service Date/Time: Thursday, July 13, 2017 13:52 - CONCLUSION: Left basilar airspace disease. Jayjay Samuel MD CT Angiography 07/13/17 0000 Signed Impressions: Service Date/Time: Thursday, July 13, 2017 15:46 - CONCLUSION: 1. Central airspace disease or bronchial wall thickening and interstitial prominence suggesting mild pneumonitis or pulmonary edema. 2. No evidence of pulmonary embolism. 3. Tip of endotracheal tube in the cardia of the stomach. Jayjay Samuel MD Objective Remarks GENERAL: 61-year-old male, critically ill currently orotracheally intubated and sedated SKIN: Warm and dry. HEAD: Atraumatic. Normocephalic. EYES: Pupils equal and round about 3 mm bilaterally and reactive. No conjunctival hemorrhage. No scleral icterus. No injection or drainage. ENT: No nasal bleeding or discharge. Mucous membranes pink and moist. NECK: Trachea midline. No JVD. CARDIOVASCULAR: Regular rate and rhythm. RESPIRATORY: Clear to auscultation. Bilateral chest excursion normal pulmonary secretions. GASTROINTESTINAL: Abdomen soft, non-tender, obese. MUSCULOSKELETAL: Extremities with nonpitting B/L upper and lower extremity1+ . No obvious deformities. NEUROLOGICAL: RASS 0. follows commands. A/P Assessment and Plan Assessment: 61yM with community acquired pneumonia and acute hypoxic respiratory failure. clinically improving. continue forced diuresis. wean to extubate. Neuro/Psych: History of depression/anxiety Insomnia Chronic back pain wean sedation as tolerated. RASS goal 0. Holding home medication of diphenhydramine 25 mg at night for insomnia Holding cyclobenzaprine 5 mill grams 3 times a day for muscle relaxation Fluoxetine 20 mg by mouth daily for depression Topiramate 75 mg by mouth twice a day for pain management Quetiapine 25 mg at night for depression/anxiety Pramipexole 0.5 mg by mouth twice a day CV: Chronic diastolic heart failure Hypertension Dyslipidemia Lactic acidosis - resolved 2-D echocardiogram 01/17 revealed EF 55-60%. Grade 1 diastolic dysfunction. Left atrium left. Mild MR/TR. PAP 35 mmHg Continue aspirin 25 mg by mouth daily for coronary artery disease Holding metoprolol extended release 25 mg daily increase to home dose lisinopril 20mg daily. Simvastatin 80 mg by mouth daily for dyslipidemia Bicarbonate infusion discontinued 07/15 Resp: Ongoing tobaccoism Acute hypoxic hypercapnic respiratory fever secondary to pneumonia- resolving. PSV 10/5/40% wean to extubate. Ventilator bundle Albuterol/ipratropium aerosols every 4 hours with albuterol aerosol every 2 hours. Dyspnea CTPA 07/13 revealed no signs of pulmonary wasn't helpful with this central interstitial prominence likely pneumonia He has an albuterol inhaler he uses as needed at home GI: Gastroesophageal reflux disease Acute protein calorie malnutrition- moderate Tube feeds Glucerna 1.5 at 40 cc/hour-minimal residual Continue lansoprazole 30 mg by tube daily for gastroesophageal reflux disease Docusate sodium/senna 1 tab twice a day for bowel regimen Patient is on either ranitidine 75 mill grams daily or omeprazole 40 mg by mouth daily home. : BPH ED d/c maren. Endo: Diabetes mellitus Holding metformin 500 mill grams by mouth twice a day in light of acute kidney injury/lactic acidosis/recent contrast administration by ED Sliding scale insulin with Accu-Cheks to maintain euglycemia Novulin R every 6 hours medium regimen Renal: Acute kidney injury- resolved. acute intravascular volume overload Monitor urine output Accurate I's and O's Lasix 40mg iv x 1 saline lock ivf. Heme: Leukocytosis Normocytic anemia Monitor CBC daily. Follow trends No indications for transfusion of blood products at this time WBC decreasing 19->16 ID: Likely pneumonia Day #5 vancomycin, cefepime and azithromycin, plan for anticipated 7 day course , stop date 07/20 07/13 -Blood cultures 2, sputum, urine Legionella and pneumococcal antigens all negative MSK: Osteoarthritis Chronic low back pain status post L4/S1 decompression PT evaluate and treat FEN: Hyponatremia Replace electrolytes as clinically indicated Access - Utilize peripheral IV. Central line if indicated Prophylaxis - GI - lanosprazole - DVT - SCD/heparin subcutaneous Kevin Mejia MD Jul 17, 2017 22:10
[2017-07-18] VITALS (14 sets, daily range): BP systolic 158–210; BP diastolic 71–98; PULSE 71–106; RESP 16–24; TEMP 97.8–98.4; O2SAT 94–99
[2017-07-18] MEDS: RESP: ALBUTEROL 2.5 MG/IPRATROPIUM 0.5 MG NEB (SCH) INH ×6 (03:32→23:46)
[2017-07-18] MEDS: HEPARIN SODIUM - SQ 10,000 UNITS/ML VIAL SQ SCH ×3 (04:00→20:59)
[2017-07-18] MEDS: CHLORHEXIDINE GLUCONATE 2 % 1 PACK (2 CLOTHS) TOP SCH (04:00)
[2017-07-18 05:33] LABS: HEMATOCRIT 33.3 % (39.0-51.0); MEAN CELL VOLUME 90.5 FL (80.0-100.0); MEAN CORPUSCULAR HEMOGLOBIN 28.6 PG (27.0-34.0); MEAN CORPUSCULAR HGB CONC 31.6 % (32.0-36.0); PLATELET COUNT 267 TH/MM3 (150-450); RED BLOOD COUNT 3.68 MIL/MM3 (4.50-5.90); RED CELL DISTRIBUTION WIDTH 15.6 % (11.6-17.2); REVIEW FLAG FINAL; WHITE BLOOD COUNT 16.2 TH/MM3 (4.0-11.0)
[2017-07-18 05:42] LABS: BICARBONATE 29.3 MEQ/L (21.0-32.0); POTASSIUM 4.1 MEQ/L (3.5-5.1)
[2017-07-18 06:00] LABS: CALCIUM-PROTEIN CORRECTED 8.1 MG/DL (8.5-10.1)
[2017-07-18] MEDS: INSULIN NovoLIN REGULAR SUPPLEMENTAL SCALE SQ SCH ×4 (06:00→17:13)
[2017-07-18] MEDS: methylPREDNISolone SOD SUCC 40 MG/1 ML VIAL IV PUSH SCH ×3 (06:20→22:00)
[2017-07-18] MEDS ORDERED: PHARMACY ORDERED LAB ONE (08:45)
[2017-07-18] MEDS: ASPIRIN 325 MG TAB PO SCH (08:48)
[2017-07-18] MEDS: MULTIVITAMIN TAB PO SCH (08:48)
[2017-07-18] MEDS: DOCUSATE SODIUM 50 MG/SENNA 8.6 MG TAB PO SCH ×2 (08:48→20:59)
[2017-07-18] MEDS: LANSOPRAZOLE SOLUTAB 30 MG TAB G-TUBE SCH (08:48)
[2017-07-18] MEDS: TOPIRAMATE 25 MG TAB PO SCH ×2 (08:48→21:00)
[2017-07-18] MEDS: PRAMIPEXOLE DIHYDROCHLORIDE 0.25 MG TAB PO SCH ×2 (08:48→21:00)
[2017-07-18] MEDS: FLUoxetine HCL 20 MG CAP PO SCH (08:49)
[2017-07-18] MEDS: CEFEPIME INJ 2,000 MG in SODIUM CHLORIDE 0.9% INJ 100 ML IV SCH ×2 (08:49→20:00)
[2017-07-18] MEDS: LISINOPRIL 10 MG TAB PO SCH (08:49)
[2017-07-18] MEDS: FLUTICASONE PROPIONATE 50 MCG/ACT 16 GM NASAL SPRAY EACH NARE SCH ×2 (08:57→20:59)
[2017-07-18] MEDS: ARTIFICIAL TEARS OPTH SOLN 15 ML BTL EACH EYE SCH ×3 (08:58→17:08)
[2017-07-18] MEDS: BENEPROTEIN POWDER 1 PACK G-TUBE SCH ×3 (08:58→17:08)
[2017-07-18] MEDS: SODIUM CHLORIDE 0.9% FLUSH 10 ML FLUSH IV FLUSH SCH ×2 (08:59→20:59)
[2017-07-18] MEDS: VANCOMYCIN INJ 1,500 MG in SODIUM CHLORID 0.9% 500 ML INJ 500 ML IV SCH (08:59)
--- NOTE | 2017-07-18 09:40 | HHI.HP ---
[facility] Service Family Medicine Primary Care Physician Unknown Admission Diagnosis pneumonia, sepsis, hypoxia Diagnoses: Chief Complaint: Transition of care from critical care. International Travel<30 Days: No Contact w/Intl Traveler<30days: No Known Affected Area: No History of Present Illness Patient is a 61 year old male with a PMH significant for diastolic CAD s/p 5 stents, CHF, dementia, history of heavy alcohol use and multiple other chronic medical conditions who was admitted to the critical care unit on 07/13/17 for respiratory failure secondary to pneumonia. He was initially intubated on admission then extubated on 07/17. His status has been improving overall and he is being transferred to the medicine service from critical care. Today, the patient states that he is feeling well. He denies any chest pain, shortness of breath, fever, chills, nausea or vomiting. He was able to tolerate breakfast without difficulty. He does have an occasional wet sounding cough. His vitals were stable overnight and he remains afebrile. He is currently saturating 95% on 4L NC. (Shakila Medina MD, R3) Review of Systems Constitutional: DENIES: Fatigue, Fever, Chills Eyes: DENIES: Blurred vision, Diplopia Ears, nose, mouth, throat: DENIES: Throat pain Respiratory: COMPLAINS OF: Cough, Wheezing, DENIES: Shortness of breath Cardiovascular: DENIES: Chest pain, Lower Extremity Edema Gastrointestinal: DENIES: Abdominal pain, Diarrhea, Nausea, Vomiting Genitourinary: DENIES: Dysuria Musculoskeletal: DENIES: Muscle aches Integumentary: DENIES: Rash Neurologic: DENIES: Headache Psychiatric: COMPLAINS OF: Anxiety, Confusion, Depression (Shakila Medina MD , R3) Past Family Social History Past Medical History Erectile dysfunction Benign prostatic hypertrophy Osteoarthritis Gastroesophageal reflux disease Coronary disease status post 5 stents drug-eluting stents 2007 Dyslipidemia Diabetes mellitus Depression/anxiety Insomnia Chronic low back pain Congestive heart failure/diastolic chronic Past Surgical History Bilateral total knee replacements Right carpal tunnel release Nasal septal repair L4/S1 decompression History of colonoscopy with benign polyp removal Reported Medications Reported Meds & Active Scripts Active Fluticasone Nasal [place] 50 Mcg/Act Naspr 100 Mcg EACH NARE BID 50 mcg/spray Bromfed DM Liq (Woexgwdjttmiezw-Hcsopefjkyaopuc-UU Liq) 30-2-10 Mg/5 Ml Syrp 5 Ml PO Q6H PRN Fluoxetine (Fluoxetine HCl) 20 Mg Capsule 20 Mg PO DAILY Metoprolol Succinate ER 24 HR (Metoprolol Succinate) 25 Mg Tab 25 Mg PO DAILY Ventolin Hfa 18 GM Inh (Albuterol Sulfate) 90 Mcg/Act Aer 2 Puff INH Q4-6H PRN Bianca Contour Next Blood Test Strips (Blood Glucose Test Strips) 1 [place] 1 Strip .ROUTE TID Lancets 1 Mis Mis 1 Ea .ROUTE DIRECTED Metformin (Metformin HCl) 500 Mg Tab 500 Mg PO BID With a meal Prinivil (Lisinopril) 20 Mg Tab 20 Mg PO BID Pramipexole (Pramipexole Dihydrochloride) 0.5 Mg Tab 0.5 Mg PO BID Simvastatin 80 Mg Tab 80 Mg PO HS Reported Oxycodone-Acetaminophen 5-325 mg Tab 1 Tab PO Q4H PRN Flexeril (Cyclobenzaprine HCl) 5 Mg Tab 5 Mg PO TID Ranitidine 75 (Ranitidine HCl) 75 Mg Tab 75 Mg PO DAILY Take 30 to 60 minutes before eating food or drinking beverages that cause heartburn. Sleep Aid (Diphenhydramine HCl (Sleep)) 25 Mg Tab 25 Mg PO HS Seroquel (Quetiapine Fumarate) 25 Mg Tab 25 Mg PO HS Topiramate 50 Mg Tab 75 Mg PO BID Omeprazole 40 Mg Cap 40 Mg PO DAILY Nitroglycerin SL (Nitroglycerin) 0.4 Mg Subl 0.4 Mg SL DIRECTED PRN ONE TABLET UNDER THE TONGUE NEEDED FOR CHEST PAIN, MAY REPEAT EVERY FIVE MINUTES FOR A TOTAL OF 3 DOSES OR CALL 911 IF NO RELIEF Multiple Vitamin 1 Tab 1 Tab PO DAILY Aspirin 325 Mg Tab 325 Mg PO DAILY (Shakila Medina MD, R3) Allergies: Coded Allergies: duloxetine (Verified Adverse Reaction, Severe, Confusion, 07/13/17) Active Ordered Medications Current Medications Medications (Trade) Dose Ordered Sig/Paco Route Start Time Stop Time Status Last Admin (NS Flush) 2 ml UNSCH PRN IV FLUSH 07/13/17 16:15 (NS Flush) 2 ml BID IV FLUSH 07/13/17 21:00 07/18/17 08:59 (Tylenol) 650 mg Q6H PRN PO 07/13/17 21:00 (Prevacid Odt) 30 mg DAILY G-TUBE 07/14/17 09:00 07/18/17 08:48 (Tears Naturale Opth Soln) 1 drop TID EACH EYE 07/13/17 18:00 07/18/17 08:58 (Zofran Inj) 4 mg Q6H PRN IV PUSH 07/13/17 16:15 07/18/17 03:00 (Albuterol Neb) 2.5 mg Q2HR NEB PRN INH 07/13/17 16:15 (Heparin Inj) 5,000 units Q8H SQ 07/13/17 20:00 07/18/17 04:00 Miscellaneous Information 1 Q361D XX 07/13/17 16:15 07/13/17 16:15 (Chlorhexidine 2% Cloth) 3 pack Taper DAILY@04 TOP 07/14/17 04:00 07/10/18 03:59 07/18/17 04:00 (Chlorhexidine 2% Cloth) 3 pack UNSCH PRN TOP 07/13/17 16:15 (Kimberly-Colace) 1 tab BID PO 07/13/17 21:00 07/18/17 08:48 (Milk Of Magnesia Liq) 30 ml Q12H PRN PO 07/13/17 16:15 (Senokot) 17.2 mg Q12H PRN PO 07/13/17 16:15 (Dulcolax Supp) 10 mg DAILY PRN RECTAL 07/13/17 16:15 (Lactulose Liq) 30 ml DAILY PRN PO 07/13/17 16:15 (D50w (Vial) Inj) 50 ml UNSCH PRN IV 07/13/17 16:15 (Glucagon Inj) 1 mg UNSCH PRN OTHER 07/13/17 16:15 (NovoLIN R SUPPLEMENTAL SCALE) 1 Q6HR SQ 07/13/17 18:00 07/17/17 06:00 Cefepime HCl 2000 mg/Sodium Chloride 100 ml @ 200 mls/hr Q12H IV 07/13/17 20:00 07/20/17 20:00 07/18/17 08:49 Azithromycin 500 mg/Sodium Chloride 250 ml @ 250 mls/hr Q24H IV 07/14/17 14:00 07/20/17 14:00 07/17/17 14:31 Pharmacy Profile Note 0 ml @ 0 mls/hr UNSCH OTHER 07/13/17 16:30 (SoluMEDROL INJ) 40 mg Q8HR IV PUSH 07/13/17 22:00 07/18/17 06:20 (Aspirin) 325 mg DAILY PO 07/14/17 09:00 07/18/17 08:48 (PROzac) 20 mg DAILY PO 07/14/17 09:00 07/18/17 08:49 (Flonase Karsten Spr) 1 spray BID EACH NARE 07/13/17 21:00 07/17/17 20:24 (SEROquel) 25 mg HS PO 07/13/17 21:00 07/17/17 20:23 (Topamax) 75 mg BID PO 07/13/17 21:00 07/18/17 08:48 (Theragran) 1 tab DAILY PO 07/14/17 09:00 07/18/17 08:48 (Pravachol) 80 mg HS PO 07/13/17 21:00 07/17/17 20:22 (Mirapex) 0.5 mg BID PO 07/13/17 21:00 07/18/17 08:48 (Beneprotein Powder) 1 pack TID G-TUBE 07/14/17 09:00 07/17/17 08:12 Vancomycin HCl 1500 mg/Sodium Chloride 515 ml @ 257.5 mls/ hr Q18H IV 07/14/17 15:00 07/20/17 15:00 07/18/17 08:59 Potassium Chloride 100 ml @ 50 mls/hr Q2H PRN IV 07/15/17 13:30 Potassium Chloride 100 ml @ 50 mls/hr Q2H PRN IV 07/15/17 13:30 (K-Lyte Cl Eff) 50 meq UNSCH PRN PO 07/15/17 13:30 Potassium Chloride 100 ml @ 25 mls/hr UNSCH PRN IV 07/15/17 13:30 Potassium Chloride 100 ml @ 50 mls/hr Q2H PRN IV 07/15/17 13:30 Magnesium Sulfate 4 gm/Sodium Chloride 100 ml @ 50 mls/hr UNSCH PRN IV 07/15/17 13:30 (Mag-Ox) 800 mg UNSCH PRN PO 07/15/17 13:30 Magnesium Sulfate 2 gm/Sodium Chloride 100 ml @ 50 mls/hr UNSCH PRN IV 07/15/17 13:30 (K-Phos) 2,000 mg Q4H PRN PO 07/15/17 13:30 Sodium Phosphate 30 mmol/Sodium Chloride 250 ml @ 42 mls/hr UNSCH PRN IV 07/15/17 13:30 07/15/17 15:55 (K-Phos) 2,000 mg UNSCH PRN PO/TUBE 07/15/17 13:30 Potassium Phosphate 30 mmol/ Sodium Chloride 260 ml @ 42 mls/hr UNSCH PRN IV 07/15/17 13:30 (Duoneb Neb) 1 ampule Q4HR NEB INH 07/17/17 12:00 07/18/17 07:48 (Trandate Inj) 20 mg Q15M PRN IV PUSH 07/17/17 10:30 07/17/17 15:09 (Apresoline Inj) 10 mg Q30M PRN IV PUSH 07/17/17 10:30 (Prinivil) 20 mg DAILY PO 07/18/17 09:00 07/18/17 08:49 (Roxicodone) 5 mg Q4H PRN PO 07/17/17 22:15 Family History Grandfather with hypertension. Father at age 71. Coronary artery disease. EtOH use. Mother age 72. Depression. Social History 3 pack per days tobacco [id number]. Restarted 2016. Drank ~24 beers/day. Quit alcohol 2007 after heavy usage. No IV drug use. (Shakila Medina MD, R3) Physical Exam Vital Signs Vital Signs Date Time Temp Pulse Resp B/P (MAP) Pulse Ox O2 Delivery O2 Flow Rate FiO2 07/18/17 07:49 95 Nasal Cannula 4.00 07/18/17 06:00 71 07/18/17 04:00 73 07/18/17 04:00 98.0 85 16 158/71 (100) 94 07/18/17 02:00 75 07/18/17 00:00 73 07/18/17 00:00 98.4 73 20 165/75 (105) 95 07/17/17 22:00 75 07/17/17 20:47 96 Nasal Cannula 3.00 07/17/17 20:00 70 07/17/17 20:00 98.2 85 20 162/72 (102) 90 07/17/17 18:00 85 07/17/17 16:00 99.3 85 21 162/77 (105) 95 07/17/17 16:00 85 07/17/17 14:00 92 07/17/17 12:00 98.9 93 18 158/70 (99) 95 07/17/17 12:00 93 07/17/17 11:39 96 Nasal Cannula 5.00 07/17/17 10:00 127 07/17/17 09:34 40 07/17/17 09:34 94 40 Physical Exam GENERAL: This is a well-nourished, well-developed obese male patient, in no apparent distress. SKIN: No rashes, ecchymoses or lesions. Cool and dry. HEAD: Atraumatic. Normocephalic. No temporal or scalp tenderness. EYES: Pupils equal round and reactive. Extraocular motions intact. No scleral icterus. No injection or drainage. ENT: Nose without bleeding, purulent drainage or septal hematoma. Throat without erythema, tonsillar hypertrophy or exudate. Uvula midline. Airway patent. NECK: Trachea midline. No JVD or lymphadenopathy. Supple, nontender, no meningeal signs. CARDIOVASCULAR: Regular rate and rhythm without murmurs, gallops, or rubs. RESPIRATORY: Decreased breath sounds bilaterally with significant amount of wheezing. Nasal cannula in place. GASTROINTESTINAL: Abdomen soft, non-tender, nondistended. No hepato-splenomegaly , or palpable masses. No guarding. MUSCULOSKELETAL: Extremities without clubbing, cyanosis, or edema. No joint tenderness, effusion, or edema noted. No calf tenderness. NEUROLOGICAL: Awake and alert. Oriented to person and place but not time. Cranial nerves II through XII intact. Motor and sensory grossly within normal limits. Normal speech. Laboratory Laboratory Tests Test 07/17/17 14:20 07/17/17 14:50 07/18/17 04:37 07/18/17 08:55 Vancomycin Level Trough 7.1 Blood Gas Puncture Site LT RADIAL Blood Gas Patient Temperature 98.6 Blood Gas HCO3 31 Blood Gas Base Excess 5.8 Blood Gas Oxygen Saturation 93 Arterial Blood pH 7.39 Arterial Blood Partial Pressure CO2 51 Arterial Blood Partial Pressure O2 77 Arterial Blood Oxygen Content 14.1 Arterial Blood Carboxyhemoglobin 1.2 Arterial Blood Methemoglobin 1.0 Blood Gas Hemoglobin 10.8 Oxygen Delivery Device NASAL CANNULA Blood Gas Liter Flow 5 White Blood Count 16.2 Red Blood Count 3.68 Hemoglobin 10.5 Hematocrit 33.3 Mean Corpuscular Volume 90.5 Mean Corpuscular Hemoglobin 28.6 Mean Corpuscular Hemoglobin Concent 31.6 Red Cell Distribution Width 15.6 Platelet Count 267 Mean Platelet Volume 8.6 Blood Urea Nitrogen 36 Creatinine 0.62 Random Glucose 71 Total Protein 5.9 Calcium Level 7.4 Sodium Level 144 Potassium Level 4.1 Chloride Level 110 Carbon Dioxide Level 29.3 Anion Gap 5 Estimat Glomerular Filtration Rate 131 Protein Corrected Calcium 8.1 Date/Time Source Procedure Growth Status 07/13/17 13:40 Blood Peripheral Aerobic Blood Culture - Preliminary NO GROWTH IN 4 DAYS Resulted 07/13/17 13:40 Blood Peripheral Anaerobic Blood Culture - Preliminary NO GROWTH IN 4 DAYS Resulted 07/13/17 19:45 Sputum Endotracheal Gram Stain - Final Complete 07/13/17 19:45 Sputum Endotracheal Sputum Culture - Final NO GROWTH IN 48 HOURS. Complete 07/13/17 15:00 Urine Catheterized Urine Legionella Antigen - Final PRESUMPTIVE NEGATIVE FOR LEGIONELLA P... Complete 07/13/17 15:00 Urine Catheterized Urine Streptococcus pneumoniae Antigen (M - Final PRESUMPTIVE NEGATIVE FOR STREPTOCOCCU... Complete (Shakila Medina MD, R3) Result Diagram: 07/18/17 0437 07/18/17 0437 Imaging Last Impressions Chest X-Ray 07/16/17 0600 Signed Impressions: Service Date/Time: Sunday, July 16, 2017 05:00 - CONCLUSION: 1. Cardiomegaly with mild basilar opacity similar to prior exam. Support apparatus unchanged. Walter Lee MD CT Angiography 07/13/17 0000 Signed Impressions: Service Date/Time: Thursday, July 13, 2017 15:46 - CONCLUSION: 1. Central airspace disease or bronchial wall thickening and interstitial prominence suggesting mild pneumonitis or pulmonary edema. 2. No evidence of pulmonary embolism. 3. Tip of endotracheal tube in the cardia of the stomach. Jayjay Samuel MD (Shakila Medina MD, R3) Caprini VTE Risk Assessment Caprini VTE Risk Assessment: Mod/High Risk (score >= 2) Caprini Risk Assessment Model Point Value = 1 Point Value = 2 Point Value = 3 Point Value = 5 Age 41-60 Minor surgery BMI > 25 kg/m2 Swollen legs Varicose veins or History of unexplained or recurrent spontaneous Oral contraceptives or hormone replacement Sepsis (< 1 month) Serious lung disease, including pneumonia (< 1 month) Abnormal pulmonary function Acute myocardial infarction Congestive heart failure (< 1 month) History of inflammatory bowel disease Medical patient at bed rest Age 61-74 Arthroscopic surgery Major open surgery (> 45 min) Laparoscopic surgery (> 45 min) Malignancy Confined to bed (> 72 hours) Immobilizing plaster cast Central venous access Age >= 75 History of VTE Family history of VTE Factor V Leiden Prothrombin [id number] Lupus anticoagulant Anticardiolipin antibodies Elevated serum homocysteine Heparin-induced thrombocytopenia Other congenital or acquired thrombophilia Stroke (< 1 month) Elective arthroplasty Hip, pelvis, or leg fracture Acute spinal cord injury (< 1 month) Prophylaxis Regimen Total Risk Factor Score Risk Level Prophylaxis Regimen 0-1 Low Early ambulation 2 Moderate Order ONE of the following: *Sequential Compression Device (SCD) *Heparin 5000 units SQ BID 3-4 Higher Order ONE of the following medications: *Heparin 5000 units SQ TID *Enoxaparin/Lovenox 40 mg SQ daily (WT < 150 kg, CrCl > 30 mL/min) *Enoxaparin/Lovenox 30 mg SQ daily (WT < 150 kg, CrCl > 10-29 mL/min) *Enoxaparin/Lovenox 30 mg SQ BID (WT < 150 kg, CrCl > 30 mL/min) AND/OR *Sequential Compression Device (SCD) 5 or more Highest Order ONE of the following medications: *Heparin 5000 units SQ TID (Preferred with Epidurals) *Enoxaparin/Lovenox 40 mg SQ daily (WT < 150 kg, CrCl > 30 mL/min) *Enoxaparin/Lovenox 30 mg SQ daily (WT < 150 kg, CrCl > 10-29 mL/min) *Enoxaparin/Lovenox 30 mg SQ BID (WT < 150 kg, CrCl > 30 mL/min) AND *Sequential Compression Device (SCD) (Shakila Medina MD, R3) Assessment and Plan Assessment and Plan Patient is a 61 year old male with a PMH significant for diastolic CAD s/p 5 stents, CHF, dementia, history of heavy alcohol use and multiple other chronic medical conditions who was admitted to the critical care unit on 07/13/17 for respiratory failure secondary to pneumonia and is now transitioning to care under the medical service. Code Status Full Code Discussed Condition With sdw Dr. Philip (Shakila Medina MD, R3) Attending Attestation Patient seen and examined. Case reviewed and discussed with the resident team. Agree with plan of care as discussed with me and documented in the resident note. saw pt in I[facility] with Dr Medina. he is improved greatly since admission and is breathing well. he is a bit inappropriate in his comments so will give him the haldol he took during his last Psychiatric admission in 01/16 (Parisa Philip MD) Problem List: (1) Pneumonia ICD Codes: J18.9 - Pneumonia, unspecified organism Status: Acute Plan: Improving s/p Intubation on 07/13, extubated 07/17 CXR shows cardiomegaly with mild basilar opacity 07/13 Blood cultures 2, sputum, urine Legionella and pneumococcal antigens all negative Poor airflow on exam today, patient continues to require 4L NC. Will keep in ICU and continue to monitor for improvement in respiratory status. Plan: - Duo nebs q4h - Albuterol neb q2h - Day #6 vancomycin, cefepime and azithromycin, plan for anticipated 7 day course, stop date 07/20 - Continue Solumedrol 40mg IV Q8H (likely COPD component to resp failure as well ) (2) Diastolic CHF ICD Codes: I50.30 - Unspecified diastolic (congestive) heart failure Status: Chronic Plan: 2-D echocardiogram 01/17 revealed EF 55-60%. Grade 1 diastolic dysfunction. Left atrium left. Mild MR/TR. PAP 35 mmHg (3) Dementia associated with other underlying disease with behavioral disturbance ICD Codes: F02.81 - Dementia in other diseases classified elsewhere with behavioral disturbance Status: Chronic Plan: Fluoxetine 20 mg by mouth daily for depression Topiramate 75 mg by mouth twice a day for pain management Quetiapine 25 mg at night for depression/anxiety Pramipexole 0.5 mg by mouth twice a day Will start Haldol 5mg PO BID as this has stabilized patient in the past. Psychiatry consulted (4) Diabetes mellitus ICD Codes: E11.9 - Type 2 diabetes mellitus without complications Status: Chronic Plan: Holding metformin 500mg PO BID Accuchecks ranging 81-166 Low dose SSI (5) CAD (coronary artery disease) ICD Codes: I25.10 - Atherosclerotic heart disease of [place] coronary artery without angina pectoris Status: Chronic Plan: Continue aspirin 25 mg by mouth daily Holding metoprolol extended release 25 mg daily Lisinopril 20mg daily. Simvastatin 80 mg by mouth daily (6) Nutrition, metabolism, and development symptoms ICD Codes: R63.8 - Other symptoms and signs concerning food and fluid intake Status: Chronic Plan: Fluids: None, tolerating PO Electrolytes: wnl, continue to monitor and replete as needed Nutrition: clear liquid diet, advance as tolerated DVT ppx: Heparin 5000units Q8H SQ GI ppx: Lansoprazole 30mg PO daily (Shakila Medina MD, R3) Physician Certification 2 Midnight Certification Type: Admission for Inpatient Services Order for Inpatient Services The services are ordered in accordance with Medicare regulations or non- Medicare payer requirements, as applicable. In the case of services not specified as inpatient-only, they are appropriately provided as inpatient services in accordance with the 2-midnight benchmark. Estimated LOS (days): 3 days is the estimated time the patient will need to remain in the hospital, assuming treatment plan goals are met and no additional complications. Post-Hospital Plan: Not yet determined (Shakila Medina MD, R3) Problem Qualifiers (1) Pneumonia: Qualified Codes: J18.9 - Pneumonia, unspecified organism (2) Diastolic CHF: Qualified Codes: I50.32 - Chronic diastolic (congestive) heart failure (3) Diabetes mellitus: Qualified Codes: E11.8 - Type 2 diabetes mellitus with unspecified complications (4) CAD (coronary artery disease): Qualified Codes: I25.10 - Atherosclerotic heart disease of [place] coronary artery without angina pectoris Shakila Medina MD, R3 Jul 18, 2017 09:39 Parisa Philip MD Jul 19, 2017 14:52
[2017-07-18] MEDS ORDERED: FUROSEMIDE 20 MG/2 ML VIAL IV PUSH ONE (11:00)
[2017-07-18] MEDS: HALOPERIDOL 5 MG TAB PO SCH ×2 (11:05→21:00)
[2017-07-18] MEDS: AZITHROMYCIN INJ 500 MG in SODIUM CHLOR 0.9% 250 ML INJ 250 ML IV SCH (14:14)
[2017-07-18] MEDS: hydrALAZINE HCL 20 MG/ML VIAL IV PUSH PRN ×2 (16:12→21:00)
[2017-07-18] MEDS: LABETALOL HCL 100 MG/20 ML VIAL IV PUSH PRN ×2 (17:07→21:59)
[2017-07-18] MEDS: QUEtiapine FUMARATE 25 MG TAB PO SCH (20:59)
[2017-07-18] MEDS: PRAVASTATIN SOD 80 MG TAB PO SCH (21:00)
[2017-07-19] VITALS (10 sets, daily range): BP systolic 111–181; BP diastolic 59–85; PULSE 71–94; RESP 16–22; TEMP 96.3–98.4; O2SAT 95–98
[2017-07-19] MEDS: hydrALAZINE HCL 20 MG/ML VIAL IV PUSH PRN ×2 (00:40→11:26)
[2017-07-19] MEDS: VANCOMYCIN INJ 1,750 MG in SODIUM CHLORID 0.9% 500 ML INJ 500 ML IV SCH ×2 (03:07→21:56)
[2017-07-19] MEDS: RESP: ALBUTEROL 2.5 MG/IPRATROPIUM 0.5 MG NEB (SCH) INH ×5 (03:17→19:56)
[2017-07-19] MEDS: CHLORHEXIDINE GLUCONATE 2 % 1 PACK (2 CLOTHS) TOP SCH (04:00)
[2017-07-19] MEDS: HEPARIN SODIUM - SQ 10,000 UNITS/ML VIAL SQ SCH ×3 (05:37→20:44)
[2017-07-19] MEDS: methylPREDNISolone SOD SUCC 40 MG/1 ML VIAL IV PUSH SCH ×2 (05:38→17:08)
[2017-07-19] MEDS: LABETALOL HCL 100 MG/20 ML VIAL IV PUSH PRN ×2 (05:38→07:52)
[2017-07-19] MEDS: INSULIN NovoLIN REGULAR SUPPLEMENTAL SCALE SQ SCH ×2 (05:46)
[2017-07-19] MEDS: ARTIFICIAL TEARS OPTH SOLN 15 ML BTL EACH EYE SCH ×3 (07:53→17:08)
[2017-07-19] MEDS: BENEPROTEIN POWDER 1 PACK G-TUBE SCH ×3 (07:53→17:08)
[2017-07-19] MEDS: FLUTICASONE PROPIONATE 50 MCG/ACT 16 GM NASAL SPRAY EACH NARE SCH ×2 (07:53→20:44)
[2017-07-19] MEDS: SODIUM CHLORIDE 0.9% FLUSH 10 ML FLUSH IV FLUSH SCH ×2 (07:54→20:44)
[2017-07-19] MEDS ORDERED: ENALAPRILAT 1.25 MG/ML VIAL IV PRN (08:15)
[2017-07-19] MEDS ORDERED: cloNIDine HCL 0.1 MG TAB PO PRN (08:15)
[2017-07-19] MEDS ORDERED: GLUCAGON 1 MG/ML VIAL OTHER PRN (08:15)
--- NOTE | 2017-07-19 08:34 | HHI.FPPN ---
Subjective Remarks Per report from nurse, patient had 1 hypoglycemic episode with glucose of 65 that was treated with snacks. Vital signs unremarkable except for elevated blood pressure that required IV antihypertensives. Continues on 2-4 L of nasal cannula for adequate oxygen saturation. This morning patient reports that he is doing well. Denies respiratory distress/SOB, chest pain, abdominal pain. Does endorse some mild constipation. Last bowel movement was about 3 days ago. (Kaylah Desai MD, R3) Objective Vitals Vital Signs Date Time Temp Pulse Resp B/P (MAP) Pulse Ox O2 Delivery O2 Flow Rate FiO2 07/19/17 08:00 97 Nasal Cannula 4.00 07/19/17 06:00 77 07/19/17 04:00 84 07/19/17 04:00 98.3 84 18 170/81 (110) 95 07/19/17 02:00 94 07/19/17 00:00 81 07/19/17 00:00 98.3 81 18 181/85 (117) 97 07/18/17 22:00 87 07/18/17 20:18 98 Nasal Cannula 2.00 07/18/17 20:00 98.4 89 24 191/78 (115) 97 07/18/17 20:00 89 07/18/17 18:00 79 07/18/17 16:00 98.1 88 24 210/98 (135) 98 07/18/17 16:00 88 07/18/17 14:00 106 07/18/17 12:00 98.0 76 22 191/82 (118) 96 07/18/17 12:00 76 07/18/17 10:00 84 I/O 07/18/17 07/18/17 07/18/17 07/19/17 07/19/17 07/19/17 07:00 15:00 23:00 07:00 15:00 23:00 Intake Total 960 ml 350 ml 2160 ml Output Total 1450 ml 3050 ml 2350 ml Balance -490 ml -2700 ml -190 ml Intake Oral 960 ml 350 ml 2160 ml Output Urine Total 1450 ml 3050 ml 2350 ml # Bowel Movements 0 0 0 (Kayalh Desai MD, R3) Result Diagram: 07/18/1743607/18/17436 Objective Remarks GEN: Well-developed, well-nourished patient. No acute distress. Resting comfortably in bed. CV: Regular rate and rhythm without obvious murmurs LUNGS: Good air movement bilaterally but with coarse breath sounds on the right upper and lower lobes. Normal respiratory effort. No wheezes. GI: Soft, nontender, mildly distended. No palpable masses. EXT: No edema. No calf tenderness. NEURO/PSYCH: Awake, alert. Appropriate insight and judgment. Normal speech (Kaylah Desai MD, R3) A/P Assessment and Plan Patient is a 61 year old male with a PMH significant for diastolic CHF, CAD s/p 5 stents, dementia, history of heavy alcohol use and multiple other chronic medical conditions who was admitted to the critical care unit on 07/13/17 for respiratory failure secondary to pneumonia. Extubated on 07/17 and is now transitioning to care under the medical service. Discharge Planning 2-3 days pending improvement in respiratory status and blood pressure wdw Dr. Philip (Kaylah Desai MD, R3) Problem List: (1) Pneumonia ICD Codes: J18.9 - Pneumonia, unspecified organism Status: Resolved Plan: Improving s/p Intubation on 07/13, extubated 07/17 CXR shows cardiomegaly with mild basilar opacity 07/13 Blood cultures 2, sputum, urine Legionella and pneumococcal antigens all negative Improved airflow on exam today but with coarse breath sounds on the right, patient continues to require 4L NC. Plan: - Duo nebs q4h - Albuterol neb q2h - Vancomycin, cefepime and azithromycin, plan for anticipated 7 day course, (-07/20) - Decreasing Solu-Medrol to 40 mg IV Q12H - Incentive spirometry -Transfer to med-surg floor (2) Diastolic CHF ICD Codes: I50.30 - Unspecified diastolic (congestive) heart failure Status: Chronic Plan: 2-D echocardiogram 01/17 revealed EF 55-60%. Grade 1 diastolic dysfunction. Left atrium left. Mild MR/TR. PAP 35 mmHg (3) Dementia associated with other underlying disease with behavioral disturbance ICD Codes: F02.81 - Dementia in other diseases classified elsewhere with behavioral disturbance Status: Chronic Plan: Fluoxetine 20 mg by mouth daily for depression Topiramate 75 mg by mouth twice a day for pain management Quetiapine 25 mg at night for depression/anxiety Pramipexole 0.5 mg by mouth twice a day Haldol 5mg PO BID as this has stabilized patient in the past. (4) Diabetes mellitus ICD Codes: E11.9 - Type 2 diabetes mellitus without complications Status: Chronic Plan: Holding metformin 500mg PO BID Hypoglycemic episode on 07/18/17 Switched from medium sliding scale to low dose sliding scale. (5) CAD (coronary artery disease) ICD Codes: I25.10 - Atherosclerotic heart disease of [place] coronary artery without angina pectoris Status: Chronic Plan: Continue aspirin 25 mg by mouth daily Resumed metoprolol extended release 25 mg daily Lisinopril 20mg daily. Simvastatin 80 mg by mouth daily (6) HTN (hypertension) ICD Codes: I10 - Hypertension Status: Chronic Plan: See medication plan under CAD -Vasotec and Clonidine PRN (7) Nutrition, metabolism, and development symptoms ICD Codes: R63.8 - Other symptoms and signs concerning food and fluid intake Status: Chronic Plan: Fluids: none Electrolytes: wnl, continue to monitor and replete as needed Nutrition: Heart Healthy DVT ppx: Heparin 5000units Q8H SQ GI ppx: Lansoprazole 30mg PO daily Developing symptoms: * constipation: will make sure pt receives Milk of Mag and lactulose as needed (Kaylah Desai MD, R3) Problem Qualifiers (1) Pneumonia: Qualified Codes: J18.9 - Pneumonia, unspecified organism (2) Diastolic CHF: Qualified Codes: I50.32 - Chronic diastolic (congestive) heart failure (3) Diabetes mellitus: Qualified Codes: E11.8 - Type 2 diabetes mellitus with unspecified complications (4) CAD (coronary artery disease): Qualified Codes: I25.10 - Atherosclerotic heart disease of [place] coronary artery without angina pectoris (5) HTN (hypertension): Qualified Codes: I10 - Essential (primary) hypertension Kaylah Desai MD, R3 Jul 19, 2017 08:34 Conor Villalobos MD Jul 21, 2017 18:21
[2017-07-19] MEDS ORDERED: DEXTROSE 50% IN WATER 50 ML VIAL(D50) IV PRN (09:00)
[2017-07-19] MEDS: MAGNESIUM HYDROXIDE SUSP 30 ML CUP PO PRN ×2 (09:37→14:29)
[2017-07-19] MEDS: CEFEPIME INJ 2,000 MG in SODIUM CHLORIDE 0.9% INJ 100 ML IV SCH ×2 (09:38→20:44)
[2017-07-19] MEDS: TOPIRAMATE 25 MG TAB PO SCH ×2 (09:39→20:43)
[2017-07-19] MEDS: LANSOPRAZOLE SOLUTAB 30 MG TAB G-TUBE SCH (09:44)
[2017-07-19] MEDS: FLUoxetine HCL 20 MG CAP PO SCH (09:44)
[2017-07-19] MEDS: PRAMIPEXOLE DIHYDROCHLORIDE 0.25 MG TAB PO SCH ×2 (09:44→20:43)
[2017-07-19] MEDS: LISINOPRIL 10 MG TAB PO SCH (09:45)
[2017-07-19] MEDS: ASPIRIN 325 MG TAB PO SCH (09:46)
[2017-07-19] MEDS: HALOPERIDOL 5 MG TAB PO SCH ×2 (09:46→20:43)
[2017-07-19] MEDS: DOCUSATE SODIUM 50 MG/SENNA 8.6 MG TAB PO SCH ×2 (09:46→20:43)
[2017-07-19] MEDS: METOPROLOL SUCCINATE 25 MG EXTENDED RELEASE TAB PO SCH (09:47)
[2017-07-19] MEDS: MULTIVITAMIN TAB PO SCH (09:47)
[2017-07-19 09:59] LABS: HEMATOCRIT 37.2 % (39.0-51.0); MEAN CELL VOLUME 88.7 FL (80.0-100.0); MEAN CORPUSCULAR HEMOGLOBIN 29.2 PG (27.0-34.0); PLATELET COUNT 289 TH/MM3 (150-450); RED BLOOD COUNT 4.19 MIL/MM3 (4.50-5.90); RED CELL DISTRIBUTION WIDTH 14.8 % (11.6-17.2); REVIEW FLAG FINAL; WHITE BLOOD COUNT 13.5 TH/MM3 (4.0-11.0)
[2017-07-19 10:22] LABS: BICARBONATE 23.7 MEQ/L (21.0-32.0); POTASSIUM 4.1 MEQ/L (3.5-5.1)
[2017-07-19] MEDS: INSULIN ASPART SUPPLEMENTAL SCALE SQ SCH ×3 (12:00→21:00)
[2017-07-19] MEDS: AZITHROMYCIN INJ 500 MG in SODIUM CHLOR 0.9% 250 ML INJ 250 ML IV SCH (14:29)
[2017-07-19] MEDS: PRAVASTATIN SOD 80 MG TAB PO SCH (20:43)
[2017-07-19] MEDS: QUEtiapine FUMARATE 25 MG TAB PO SCH (20:44)
[2017-07-20] VITALS (9 sets, daily range): BP systolic 127–177; BP diastolic 59–82; PULSE 82–91; RESP 16–22; TEMP 96–97.5; O2SAT 94–98
[2017-07-20] MEDS: RESP: ALBUTEROL 2.5 MG/IPRATROPIUM 0.5 MG NEB (SCH) INH ×6 (00:08→20:01)
[2017-07-20] MEDS: CHLORHEXIDINE GLUCONATE 2 % 1 PACK (2 CLOTHS) TOP SCH (03:53)
[2017-07-20] MEDS: HEPARIN SODIUM - SQ 10,000 UNITS/ML VIAL SQ SCH ×3 (03:53→19:36)
[2017-07-20] MEDS: methylPREDNISolone SOD SUCC 40 MG/1 ML VIAL IV PUSH SCH (06:06)
[2017-07-20 07:34] LABS: AUTOMATED NEUTROPHIL # 7.1 TH/MM3 (1.8-7.7); BASOPHIL % 0.1 % (0.0-2.0); EOSINOPHIL % 0.4 % (0.0-4.0); HEMATOCRIT 46.4 % (39.0-51.0); HEMO FLAGS DIFF FINAL; LYMPH % 20.1 % (9.0-44.0); LYMPHOCYTE # 2.1 TH/MM3 (1.0-4.8); MEAN CELL VOLUME 91.8 FL (80.0-100.0); MEAN CORPUSCULAR HEMOGLOBIN 30.1 PG (27.0-34.0); MEAN CORPUSCULAR HGB CONC 32.8 % (32.0-36.0); NEUT % 69.4 % (16.0-70.0); PLATELET COUNT 218 TH/MM3 (150-450); RED BLOOD COUNT 5.06 MIL/MM3 (4.50-5.90); RED CELL DISTRIBUTION WIDTH 15.3 % (11.6-17.2); WHITE BLOOD COUNT 10.2 TH/MM3 (4.0-11.0)
[2017-07-20] MEDS: INSULIN ASPART SUPPLEMENTAL SCALE SQ SCH ×4 (08:00→20:10)
[2017-07-20] MEDS: TOPIRAMATE 25 MG TAB PO SCH ×2 (08:11→19:36)
[2017-07-20] MEDS: ASPIRIN 325 MG TAB PO SCH (08:11)
[2017-07-20] MEDS: HALOPERIDOL 5 MG TAB PO SCH ×2 (08:11→19:36)
[2017-07-20] MEDS: FLUoxetine HCL 20 MG CAP PO SCH (08:11)
[2017-07-20] MEDS: MULTIVITAMIN TAB PO SCH (08:11)
[2017-07-20] MEDS: METOPROLOL SUCCINATE 25 MG EXTENDED RELEASE TAB PO SCH (08:11)
[2017-07-20] MEDS: PRAMIPEXOLE DIHYDROCHLORIDE 0.25 MG TAB PO SCH ×2 (08:12→19:37)
[2017-07-20] MEDS: LANSOPRAZOLE SOLUTAB 30 MG TAB G-TUBE SCH (08:12)
[2017-07-20] MEDS: LISINOPRIL 10 MG TAB PO SCH (08:12)
[2017-07-20] MEDS: DOCUSATE SODIUM 50 MG/SENNA 8.6 MG TAB PO SCH ×2 (08:12→19:36)
[2017-07-20] MEDS: ARTIFICIAL TEARS OPTH SOLN 15 ML BTL EACH EYE SCH ×3 (08:12→18:00)
[2017-07-20] MEDS: BENEPROTEIN POWDER 1 PACK G-TUBE SCH ×3 (08:12→18:00)
[2017-07-20] MEDS: SODIUM CHLORIDE 0.9% FLUSH 10 ML FLUSH IV FLUSH SCH ×2 (08:12→19:37)
[2017-07-20] MEDS: FLUTICASONE PROPIONATE 50 MCG/ACT 16 GM NASAL SPRAY EACH NARE SCH ×2 (08:13→19:37)
[2017-07-20] MEDS: CEFEPIME INJ 2,000 MG in SODIUM CHLORIDE 0.9% INJ 100 ML IV SCH ×2 (08:13→19:35)
--- NOTE | 2017-07-20 09:50 | HHI.FPPN ---
Subjective Remarks Overnight resident was called due to urinary retention. Patient had voided but was found to have 1 L of urine prior to straight catheter. Since straight catheter overnight, patient has voided without issues. Nurse does report that patient has BPH. Vital signs significant for BP around 160-170 and patient remains on nasal cannula 3 L. This morning patient states that he feels very well and has no complaints. (Kaylah Desai MD, R3) Objective Vitals Vital Signs Date Time Temp Pulse Resp B/P (MAP) Pulse Ox O2 Delivery O2 Flow Rate FiO2 07/20/17 08:00 96.0 82 18 164/70 (101) 98 07/20/17 07:54 98 Nasal Cannula 3.00 07/20/17 00:12 96 Nasal Cannula 3.00 07/20/17 00:00 96.7 86 21 177/82 (113) 98 07/19/17 20:00 97.3 85 22 170/78 (108) 95 07/19/17 16:00 97.5 82 16 111/59 (76) 98 07/19/17 15:59 97 Nasal Cannula 3.00 07/19/17 12:00 96.3 83 18 156/78 (104) 95 07/19/17 10:00 82 I/O 07/19/17 07/19/17 07/19/17 07/20/17 07/20/17 07/20/17 07:00 15:00 23:00 07:00 15:00 23:00 Intake Total 2160 ml 460 ml 1070 ml 757.5 ml Output Total 2350 ml 1100 ml 150 ml 300 ml Balance -190 ml -640 ml 920 ml 457.5 ml Intake Oral 2160 ml 360 ml 720 ml 240 ml IV Total 100 ml 350 ml 517.5 ml Output Urine Total 2350 ml 1100 ml 150 ml 300 ml Bladder Scan Volume Amount 925 ml # Voids 2 # Bowel Movements 0 2 0 (Kaylah Desai MD, R3) Result Diagram: 07/20/17 0600 07/20/17 0657 Objective Remarks GEN: Well-developed, well-nourished patient. No acute distress. Resting comfortably in bed. CV: Regular rate and rhythm without obvious murmurs LUNGS: Good air movement bilaterally but with mildly course breath sounds bilaterally, improved from yesterday. Normal respiratory effort. No wheezes. GI: Soft, nontender, mildly distended. No palpable masses. EXT: No edema. No calf tenderness. NEURO/PSYCH: Awake, alert. Appropriate insight and judgment. Normal speech (Kaylah Desai MD, R3) A/P Assessment and Plan Patient is a 61 year old male with a PMH significant for diastolic CHF, CAD s/p 5 stents, dementia, history of heavy alcohol use and multiple other chronic medical conditions who was admitted to the critical care unit on 07/13/17 for respiratory failure secondary to pneumonia. Extubated on 07/17 and is now transitioning to care under the medical service. Discharge Planning 1-2 days pending weaning off of O2 * Will need wheeled walker and home PT at discharge wdw Dr. Philip (Kaylah Desai MD, R3) Attending Attestation Patient seen and examined. Case reviewed and discussed with the resident team. Agree with plan of care as discussed with me and documented in the resident note. he is really doing well and has cleared up mentally as well as with no real oxygen requirement. he will not need haldol to go home (Parisa Philip MD) Problem List: (1) Pneumonia ICD Codes: J18.9 - Pneumonia, unspecified organism Status: Acute Plan: Improving s/p Intubation on 07/13, extubated 07/17 CXR shows cardiomegaly with mild basilar opacity 07/13 Blood cultures 2, sputum, urine Legionella and pneumococcal antigens all negative Plan: - Duo nebs q4h - Albuterol neb q2h - Vancomycin, cefepime and azithromycin, plan for anticipated 7 day course, (-07/20) - Transition to oral steroids, Prednisone 40mg PO BID (will need taper) - Incentive spirometry (2) Urinary retention ICD Codes: R33.9 - Retention of urine, unspecified Status: Acute Plan: Episode of urinary retention after the removal of [place]. Patient has voided without issues however there may be a history of BPH. -If there is another episode of urinary retention, we'll straight catheter 1 and begin Flomax 0.4 mg daily (3) Diastolic CHF ICD Codes: I50.30 - Unspecified diastolic (congestive) heart failure Status: Chronic Plan: 2-D echocardiogram 01/17 revealed EF 55-60%. Grade 1 diastolic dysfunction. Left atrium left. Mild MR/TR. PAP 35 mmHg (4) Dementia associated with other underlying disease with behavioral disturbance ICD Codes: F02.81 - Dementia in other diseases classified elsewhere with behavioral disturbance Status: Chronic Plan: Fluoxetine 20 mg by mouth daily for depression Topiramate 75 mg by mouth twice a day for pain management Quetiapine 25 mg at night for depression/anxiety Pramipexole 0.5 mg by mouth twice a day Haldol 5mg PO BID as this has stabilized patient in the past. (5) Diabetes mellitus ICD Codes: E11.9 - Type 2 diabetes mellitus without complications Status: Chronic Plan: Holding metformin 500mg PO BID Hypoglycemic episode on 07/18/17 Switched from medium sliding scale to low dose sliding scale. (6) CAD (coronary artery disease) ICD Codes: I25.10 - Atherosclerotic heart disease of [place] coronary artery without angina pectoris Status: Chronic Plan: Continue aspirin 25 mg by mouth daily Resumed metoprolol extended release 25 mg daily Lisinopril 20mg daily. Simvastatin 80 mg by mouth daily (7) HTN (hypertension) ICD Codes: I10 - Hypertension Status: Chronic Plan: See medication plan under CAD -Vasotec and Clonidine PRN (8) Physical deconditioning ICD Codes: R53.81 - Other malaise Status: Acute Plan: Physical therapy consulted. Plan treatment of physical therapy 3-5 times a week Friday through Friday. -will need home PT and wheeled walker at discharge (9) Nutrition, metabolism, and development symptoms ICD Codes: R63.8 - Other symptoms and signs concerning food and fluid intake Status: Chronic Plan: Fluids: none Electrolytes: wnl, continue to monitor and replete as needed Nutrition: Heart Healthy DVT ppx: Heparin 5000units Q8H SQ GI ppx: Lansoprazole 30mg PO daily Developing symptoms: * constipation: will make sure pt receives Milk of Mag and lactulose as needed (Kaylah Desai MD, R3) Problem Qualifiers (1) Pneumonia: Qualified Codes: J18.9 - Pneumonia, unspecified organism (2) Diastolic CHF: Qualified Codes: I50.32 - Chronic diastolic (congestive) heart failure (3) Diabetes mellitus: Qualified Codes: E11.8 - Type 2 diabetes mellitus with unspecified complications (4) CAD (coronary artery disease): Qualified Codes: I25.10 - Atherosclerotic heart disease of [place] coronary artery without angina pectoris (5) HTN (hypertension): Qualified Codes: I10 - Essential (primary) hypertension Kaylah Desai MD, R3 Jul 20, 2017 09:50 Parisa Philip MD Jul 20, 2017 18:21
[2017-07-20] MEDS: AZITHROMYCIN INJ 500 MG in SODIUM CHLOR 0.9% 250 ML INJ 250 ML IV SCH (14:00)
[2017-07-20] MEDS: VANCOMYCIN INJ 1,750 MG in SODIUM CHLORID 0.9% 500 ML INJ 500 ML IV SCH (15:46)
[2017-07-20] MEDS: QUEtiapine FUMARATE 25 MG TAB PO SCH (19:36)
[2017-07-20] MEDS: PRAVASTATIN SOD 80 MG TAB PO SCH (19:36)
[2017-07-20] MEDS: predniSONE 20 MG TAB PO SCH (19:36)
[2017-07-21] VITALS: BP 174/67; PULSE 81; RESP 22; TEMP 96.3; O2SAT 96
[2017-07-21] MEDS: RESP: ALBUTEROL 2.5 MG/IPRATROPIUM 0.5 MG NEB (SCH) INH ×3 (03:57→08:00)
[2017-07-21] MEDS: CHLORHEXIDINE GLUCONATE 2 % 1 PACK (2 CLOTHS) TOP SCH (04:00)
[2017-07-21] MEDS: HEPARIN SODIUM - SQ 10,000 UNITS/ML VIAL SQ SCH ×2 (04:00→11:24)
[2017-07-21] MEDS ORDERED: WALKER GLIDE WH1 MI1 (07:24)
[2017-07-21 08:00] VITALS: BP 183/84; PULSE 81; RESP 18; TEMP 96.9; O2SAT 95
[2017-07-21] MEDS: INSULIN ASPART SUPPLEMENTAL SCALE SQ SCH ×2 (08:00→11:24)
[2017-07-21] MEDS: METOPROLOL SUCCINATE 25 MG EXTENDED RELEASE TAB PO SCH (08:24)
[2017-07-21] MEDS: predniSONE 20 MG TAB PO SCH (08:24)
[2017-07-21] MEDS: HALOPERIDOL 5 MG TAB PO SCH (08:24)
[2017-07-21] MEDS: LANSOPRAZOLE SOLUTAB 30 MG TAB G-TUBE SCH (08:24)
[2017-07-21] MEDS: PRAMIPEXOLE DIHYDROCHLORIDE 0.25 MG TAB PO SCH (08:24)
[2017-07-21] MEDS: DOCUSATE SODIUM 50 MG/SENNA 8.6 MG TAB PO SCH (08:25)
[2017-07-21] MEDS: FLUTICASONE PROPIONATE 50 MCG/ACT 16 GM NASAL SPRAY EACH NARE SCH (08:25)
[2017-07-21] MEDS: FLUoxetine HCL 20 MG CAP PO SCH (08:25)
[2017-07-21] MEDS: LISINOPRIL 10 MG TAB PO SCH (08:25)
[2017-07-21] MEDS: ASPIRIN 325 MG TAB PO SCH (08:25)
[2017-07-21] MEDS: TOPIRAMATE 25 MG TAB PO SCH (08:25)
[2017-07-21] MEDS: MULTIVITAMIN TAB PO SCH (08:25)
[2017-07-21] MEDS: ARTIFICIAL TEARS OPTH SOLN 15 ML BTL EACH EYE SCH ×2 (08:26→11:24)
[2017-07-21] MEDS: SODIUM CHLORIDE 0.9% FLUSH 10 ML FLUSH IV FLUSH SCH (08:27)
[2017-07-21] MEDS: BENEPROTEIN POWDER 1 PACK G-TUBE SCH ×2 (08:27→11:25)
[2017-07-21] MEDS ORDERED: ALBU0.08 INH (09:02)
[2017-07-21] MEDS ORDERED: NEBUKIT5 (09:03)
--- NOTE | 2017-07-21 10:23 | HHI.FPPN ---
Subjective Remarks No acute issues overnight. Vitals are stable, patient remains afebrile. He is breathing comfortably on room air. He denies any chest pain, shortness of breath, fever, chills, nausea or vomiting. He feels ready to go home today. He had a bowel movement yesterday and has been voiding independently. (Shakila Medina MD, R3) Objective Vitals Vital Signs Date Time Temp Pulse Resp B/P (MAP) Pulse Ox O2 Delivery O2 Flow Rate FiO2 07/21/17 08:00 96.9 81 18 183/84 (117) 95 07/21/17 08:00 96.9 81 18 183/84 (117) 95 07/21/17 00:00 96.3 81 22 174/67 (102) 96 07/20/17 20:04 95 07/20/17 20:00 97.5 83 22 165/73 (103) 96 07/20/17 16:00 96.4 91 16 127/59 (81) 94 07/20/17 12:30 96 07/20/17 12:00 96.8 91 17 142/71 (94) 98 07/20/17 12:00 97 Room Air I/O 07/20/17 07/20/17 07/20/17 07/21/17 07/21/17 07/21/17 07:00 15:00 23:00 07:00 15:00 23:00 Intake Total 757.5 ml 350 ml 1577.5 ml 320 ml 120 ml Output Total 300 ml 1125 ml 2100 ml Balance 457.5 ml 350 ml 452.5 ml -1780 ml 120 ml Intake Oral 240 ml 960 ml 320 ml 120 ml IV Total 517.5 ml 350 ml 617.5 ml Output Urine Total 300 ml 1125 ml 2100 ml # Bowel Movements 0 1 0 (Shakila Medina MD, R3) Result Diagram: 07/20/17 0600 07/20/17 0657 Imaging Last Impressions Chest X-Ray 07/16/17 06 Signed Impressions: Service Date/Time: Sunday, July 16, 2017 05:00 - CONCLUSION: 1. Cardiomegaly with mild basilar opacity similar to prior exam. Support apparatus unchanged. Walter Lee MD CT Angiography 07/13/17 0000 Signed Impressions: Service Date/Time: Thursday, July 13, 2017 15:46 - CONCLUSION: 1. Central airspace disease or bronchial wall thickening and interstitial prominence suggesting mild pneumonitis or pulmonary edema. 2. No evidence of pulmonary embolism. 3. Tip of endotracheal tube in the cardia of the stomach. Jayjay Samuel MD Objective Remarks GEN: Well-developed, well-nourished male patient. No acute distress. Resting comfortably in bed. CV: Regular rate and rhythm without obvious murmurs LUNGS: Good air movement bilaterally with mildly course breath sounds bilaterally. Normal respiratory effort. No wheezes. GI: Soft, nontender, nondistended. No palpable masses. EXT: No edema. No calf tenderness. NEURO/PSYCH: Awake, alert, and oriented 3. Appropriate insight and judgment. Normal speech (Shakila Medina MD, R3) A/P Assessment and Plan Patient is a 61 year old male with a PMH significant for diastolic CHF, CAD s/p 5 stents, dementia, history of heavy alcohol use and multiple other chronic medical conditions who was admitted to the critical care unit on 07/13/17 for respiratory failure secondary to pneumonia. Extubated on 07/17 and respiratory issues have now resolved. Discharge Planning Anticipate discharge home with home health today. Home O2 walk test prior to discharge to assess need for oxygen at home. * Will need wheeled walker and home PT at discharge sdw Dr. Villalobos (Shakila Medina MD, R3) Attending Attestation THIS CASE WAS DISCUSSED WITH THE RESIDENT PHYSICIANS PATIENT WAS INTERVIEWED AND EXAMINED. I HAVE REVIEWED THE RECORD AND AGREE WITH THE ABOVE NOTE AND PLAN OF CARE WAS DISCUSSED. I HAVE AUTHORIZED THE ORDERS.Medically stable (Conor Villalobos MD) Problem List: (1) Pneumonia ICD Codes: J18.9 - Pneumonia, unspecified organism Status: Resolved Plan: Resolved s/p Intubation on 07/13, extubated 07/17 CXR shows cardiomegaly with mild basilar opacity 07/13 Blood cultures 2, sputum, urine Legionella and pneumococcal antigens all negative s/p Vancomycin, cefepime and azithromycin (07/13-07/20) Plan: - Duo nebs q4h - Albuterol neb q2h - Prednisone 40mg PO BID, taper as outpatient - Incentive spirometry (2) Diastolic CHF ICD Codes: I50.30 - Unspecified diastolic (congestive) heart failure Status: Chronic Plan: 2-D echocardiogram 01/17 revealed EF 55-60%. Grade 1 diastolic dysfunction. Left atrium left. Mild MR/TR. PAP 35 mmHg (3) Dementia associated with other underlying disease with behavioral disturbance ICD Codes: F02.81 - Dementia in other diseases classified elsewhere with behavioral disturbance Status: Chronic Plan: Fluoxetine 20 mg by mouth daily for depression Topiramate 75 mg by mouth twice a day for pain management Quetiapine 25 mg at night for depression/anxiety Pramipexole 0.5 mg by mouth twice a day Haldol 5mg PO BID as this has stabilized patient in the past. (4) Diabetes mellitus ICD Codes: E11.9 - Type 2 diabetes mellitus without complications Status: Chronic Plan: Holding metformin 500mg PO BID low dose SSI. (5) CAD (coronary artery disease) ICD Codes: I25.10 - Atherosclerotic heart disease of [place] coronary artery without angina pectoris Status: Chronic Plan: Continue aspirin 25 mg by mouth daily metoprolol extended release 25 mg daily Lisinopril 20mg daily. Simvastatin 80 mg by mouth daily (6) HTN (hypertension) ICD Codes: I10 - Hypertension Status: Chronic Plan: See medication plan under CAD -Vasotec and Clonidine PRN (7) Physical deconditioning ICD Codes: R53.81 - Other malaise Status: Acute Plan: Physical therapy consulted. Plan treatment of physical therapy 3-5 times a week Friday through Friday. -will need home PT and wheeled walker at discharge (8) Nutrition, metabolism, and development symptoms ICD Codes: R63.8 - Other symptoms and signs concerning food and fluid intake Status: Chronic Plan: Fluids: none Electrolytes: wnl, continue to monitor and replete as needed Nutrition: Heart Healthy DVT ppx: Heparin 5000units Q8H SQ GI ppx: Lansoprazole 30mg PO daily (Shakila Medina MD, R3) Problem Qualifiers (1) Pneumonia: Qualified Codes: J18.9 - Pneumonia, unspecified organism (2) Diastolic CHF: Qualified Codes: I50.32 - Chronic diastolic (congestive) heart failure (3) Diabetes mellitus: Qualified Codes: E11.8 - Type 2 diabetes mellitus with unspecified complications (4) CAD (coronary artery disease): Qualified Codes: I25.10 - Atherosclerotic heart disease of [place] coronary artery without angina pectoris (5) HTN (hypertension): Qualified Codes: I10 - Essential (primary) hypertension Shakila Medina MD, R3 Jul 21, 2017 10:22 Conor Villalobos MD Jul 21, 2017 18:20
[2017-07-21] MEDS ORDERED: PRED20 PO (10:26)
--- NOTE | 2017-07-21 10:28 | HHI.FF ---
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 My clinical findings support the need for the requested home health care services because: Ltd mobility - disease progression Deconditioned w/ increased weakness Limited ability to care for self Need for psychosocial assistance I certify that my clinical findings support that this patient is homebound because: Impaired cognitive ability/safety Hx COPD- exertion dyspnea/weakness Unsteady gait/balance Unsafe to leave home unassisted Need for psychosocial assistance Shakila Medina MD, R3 Jul 21, 2017 10:28
[2017-07-21 12:00] VITALS: BP 178/74; PULSE 75; RESP 20; TEMP 97.2; O2SAT 95
--- NOTE | 2017-07-21 15:17 | HHI.DCPOC ---
Discharge Care Plan Diagnosis: (1) Dementia associated with other underlying disease with behavioral disturbance (2) Respiratory failure Goals to Promote Your Health * To prevent worsening of your condition and complications * To maintain your health at the optimal level Directions to Meet Your Goals Take your medications as prescribed Follow your dietary instruction Follow activity as directed Keep your appointments as scheduled Take your immunizations and boosters as scheduled If your symptoms worsen call your PCP, if no PCP go to Urgent Care Center or Emergency Room Smoking is Dangerous to Your Health. Avoid second hand smoke Call the 24-hour hour crisis hotline for domestic abuse at Shakila Medina MD, R3 Jul 21, 2017 15:17
--- NOTE | 2017-07-21 15:23 | HHI.DS ---
Discharge Summary Admission Date Jul 13, 2017 at 15:52 Discharge Date: Jul 21, 2017 Admitting Diagnosis pneumonia, sepsis, hypoxia (1) Pneumonia Diagnosis: Principal Plan: Resolved s/p Intubation on 07/13, extubated 07/17 CXR shows cardiomegaly with mild basilar opacity 07/13 Blood cultures 2, sputum, urine Legionella and pneumococcal antigens all negative s/p Vancomycin, cefepime and azithromycin (07/13-07/20) Plan: - Duo nebs q4h - Albuterol neb q2h - Prednisone 40mg PO BID, taper as outpatient - Incentive spirometry ICD Codes: J18.9 - Pneumonia, unspecified organism Status: Resolved (2) Diastolic CHF Plan: 2-D echocardiogram 01/17 revealed EF 55-60%. Grade 1 diastolic dysfunction. Left atrium left. Mild MR/TR. 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 ICD Codes: F02.81 - Dementia in other diseases classified elsewhere with behavioral disturbance Status: Chronic (4) Diabetes mellitus Plan: Holding metformin 500mg PO BID low dose SSI. ICD Codes: E11.9 - Type 2 diabetes mellitus without complications Status: Chronic (5) CAD (coronary artery disease) Plan: Continue aspirin 25 mg by mouth daily metoprolol extended release 25 mg daily Lisinopril 20mg daily. Simvastatin 80 mg by mouth daily ICD Codes: I25.10 - Atherosclerotic heart disease of [place] coronary artery without angina pectoris Status: Chronic (6) HTN (hypertension) Plan: See medication plan under CAD -Vasotec and Clonidine PRN ICD Codes: I10 - Hypertension Status: Chronic (7) Physical deconditioning Plan: Physical therapy consulted. Plan treatment of physical therapy 3-5 times a week Friday through Friday. -will need home PT and wheeled walker at discharge ICD Codes: R53.81 - Other malaise Status: Acute (8) Nutrition, metabolism, and development symptoms Plan: Fluids: none Electrolytes: wnl, continue to monitor and replete as needed Nutrition: Heart Healthy DVT ppx: Heparin 5000units Q8H SQ GI ppx: Lansoprazole 30mg PO daily ICD Codes: R63.8 - Other symptoms and signs concerning food and fluid intake Status: Chronic Consultants Critical care Brief History On admission: Patient is a 61 year old male with a PMH significant for diastolic CAD s/p 5 stents, CHF, dementia, history of heavy alcohol use and multiple other chronic medical conditions who was admitted to the critical care unit on 07/13/17 for respiratory failure secondary to pneumonia. He was initially intubated on admission then extubated on 07/17. His status has been improving overall and he is being transferred to the medicine service from critical care. Today, the patient states that he is feeling well. He denies any chest pain, shortness of breath, fever, chills, nausea or vomiting. He was able to tolerate breakfast without difficulty. He does have an occasional wet sounding cough. His vitals were stable overnight and he remains afebrile. He is currently saturating 95% on 4L NC. CBC/BMP: 07/20/17 0600 07/20/17 0657 Significant Findings Laboratory Tests Test 07/19/17 08:25 07/20/17 06:00 07/20/17 06:57 White Blood Count 13.5 TH/MM3 (4.0-11.0) Red Blood Count 4.19 MIL/MM3 (4.50-5.90) Hemoglobin 12.3 GM/DL (13.0-17.0) Hematocrit 37.2 % (39.0-51.0) Blood Urea Nitrogen 27 MG/DL (7-18) 23 MG/DL (7-18) Monocytes (%) (Auto) 10.0 % (0.0-8.0) Monocytes # (Auto) 1.0 TH/MM3 (0-0.9) Calcium Level 8.3 MG/DL (8.5-10.1) Imaging Last Impressions Chest X-Ray 07/16/17 0600 Signed Impressions: Service Date/Time: Sunday, July 16, 2017 05:00 - CONCLUSION: 1. Cardiomegaly with mild basilar opacity similar to prior exam. Support apparatus unchanged. Walter Lee MD CT Angiography 07/13/17 0000 Signed Impressions: Service Date/Time: Thursday, July 13, 2017 15:46 - CONCLUSION: 1. Central airspace disease or bronchial wall thickening and interstitial prominence suggesting mild pneumonitis or pulmonary edema. 2. No evidence of pulmonary embolism. 3. Tip of endotracheal tube in the cardia of the stomach. Jayjay Samuel MD PE at Discharge GEN: Well-developed, well-nourished male patient. No acute distress. Resting comfortably in bed. CV: Regular rate and rhythm without obvious murmurs LUNGS: Good air movement bilaterally with mildly course breath sounds bilaterally. Normal respiratory effort. No wheezes. GI: Soft, nontender, nondistended. No palpable masses. EXT: No edema. No calf tenderness. NEURO/PSYCH: Awake, alert, and oriented 3. Appropriate insight and judgment. Normal speech Hospital Course Patient is a 61 year old male with a PMH significant for diastolic CAD s/p 5 stents, CHF, dementia, history of heavy alcohol use and multiple other chronic medical conditions who was admitted to the critical care unit on 07/13/17 for respiratory failure secondary to pneumonia and likely COPD exacerbation. He was initially intubated on admission then extubated on 07/17. He was treated with 7 days of vancomycin, cefepime and azithromycin as well as IV Solu-Medrol before transitioning to by mouth prednisone. Home medications were continued and he was started on Haldol 5 mg by mouth twice a day for psychiatric stabilization. He was evaluated by physical therapy who recommended a wheeled walker at home and discharged with home health PT. He is discharged on a PO prednisone taper as well as a nebulizer for as needed nebulizer treatments. He underwent a home O2 walk test and was found to be saturating 96% on room air. He was counseled extensively on tobacco cessation. He will follow-up with his PCP in 1 week. Pt Condition on Discharge: Stable Discharge Disposition: Disch w/ Home Health Serv Discharge Instructions DIET: Follow Instructions for: Heart Healthy Diet, Diabetic Diet Activities you can perform: Regular-No Restrictions Follow up Referrals: PCP Follow-up - 1 Week New Medications: Nebulizer Kit/Tubing/Mout (Nebulizer Kit/Tubing/Mout) 1 Kit Kit KIT .ROUTE DIRECTED for Breathing Treatment, #1 0 Refills Prednisone (Prednisone) 20 Mg Tab 20 MG PO DIRECTED for Inflammation, #11 TAB 0 Refills 40 MG twice a day x 3 days, then 20 MG daily x 3 days, then 10 MG daily x 3 days Walker [place] Wheels/5 Adj (Walker [place] Wheels/5 Adj) 1 Mis Mis EA .ROUTE DIRECTED, #1 0 Refills Albuterol Neb (Albuterol Neb) 2.5 Mg/3 Ml Neb 2.5 MG INH Q2HR NEB PRN for SOB/WHEEZING, #120 NEBULE Continued Medications: Albuterol 18 GM Inh (Ventolin Hfa 18 GM Inh) 90 Mcg/Act Aer 2 PUFF INH Q4-6H PRN for SHORTNESS OF BREATH, #1 INHALER 6 Refills Aspirin (Aspirin) 325 Mg Tab 325 MG PO DAILY, #30 TAB 0 Refills Fluoxetine (Fluoxetine) 20 Mg Capsule 20 MG PO DAILY, #30 CAP 0 Refills Fluticasone Nasal [place] (Fluticasone Nasal [place]) 50 Mcg/Act Naspr 100 MCG EACH NARE BID for Allergy Management, #1 BOTTLE 0 Refills 50 mcg/spray Lisinopril (Prinivil) 20 Mg Tab 20 MG PO BID for Blood Pressure Management, #60 TAB 6 Refills Metformin (Metformin) 500 Mg Tab 500 MG PO BID for Blood Sugar Management, #180 TAB 3 Refills With a meal Metoprolol Succinate ER 24 HR (Metoprolol Succinate ER 24 HR) 25 Mg Tab 25 MG PO DAILY, #30 TAB 3 Refills Multiple Vitamin (Multiple Vitamin) 1 Tab 1 TAB PO DAILY for Nutritional Supplement, TAB 0 Refills Nitroglycerin SL (Nitroglycerin SL) 0.4 Mg Subl 0.4 MG SL DIRECTED PRN for CHEST PAIN, #100 TAB.SL 0 Refills ONE TABLET UNDER THE TONGUE NEEDED FOR CHEST PAIN, MAY REPEAT EVERY FIVE MINUTES FOR A TOTAL OF 3 DOSES OR CALL 911 IF NO RELIEF Omeprazole (Omeprazole) 40 Mg Cap 40 MG PO DAILY, #30 CAP 0 Refills Oxycodone-Acetaminophen (Oxycodone-Acetaminophen) 5-325 mg Tab 1 TAB PO Q4H PRN for PAIN, TAB 0 Refills Pramipexole (Pramipexole) 0.5 Mg Tab 0.5 MG PO BID for Parkinson Disease Mgmt, #60 TAB 6 Refills Quetiapine (Seroquel) 25 Mg Tab 25 MG PO HS, #30 TAB 0 Refills Ranitidine (Ranitidine 75) 75 Mg Tab 75 MG PO DAILY for Heartburn, TAB 0 Refills Take 30 to 60 minutes before eating food or drinking beverages that cause heartburn. Simvastatin (Simvastatin) 80 Mg Tab 80 MG PO HS for Cholesterol Management, #30 TAB 6 Refills Topiramate (Topiramate) 50 Mg Tab 75 MG PO BID for Control Seizures, #60 TAB 0 Refills Discontinued Medications: Cyclobenzaprine (Flexeril) 5 Mg Tab 5 MG PO TID for Muscle Spasm, #90 TAB 0 Refills Diphenhydramine HCl (Sleep) (Sleep Aid) 25 Mg Tab 25 MG PO HS [id number]-[id number] Liq (Bromfed DM Liq) 30-2-10 Mg/5 Ml Syrp 5 ML PO Q6H PRN for COUGH AND/OR COLD SYMPTOMS, #1 BOTTLE 0 Refills Shakila Medina MD, R3 Jul 21, 2017 15:23
[2017-07-21] MEDS ORDERED: HALO5TAB PO (15:24)
[2017-07-21 16:00] VITALS: BP 153/74; PULSE 74; RESP 20; TEMP 97.7; O2SAT 96
[2017-07-23] MEDS ORDERED: NEBUKIT5 (12:51)
[2017-07-31] MEDS ORDERED: PRIN20TA2 PO (13:56)
[2017-07-31] MEDS ORDERED: SIMV80TA PO (13:56)
[2017-07-31] MEDS ORDERED: METO25TA6 PO (13:56)
[2017-08-14] MEDS ORDERED: TRIH2 PO (16:12)
[2017-08-14] MEDS ORDERED: PRAM0.5T PO (16:13)
== END 2017-07-21 17:16 | disposition home or self-care (01) | DRG 871 ==
LOC: NEPC 13:19 → NEDA 15:52 → HIMN 17:00 → N07B 07-19 12:29
PROVIDERS: ADMIT Family Medicine; ATTEND Family Medicine
PROC: 0BH17EZ Insertion of Endotracheal Airway into Trachea, Via Natural or Artificial Opening (ICD-10-PCS; principal; 2017-07-13)
PROC: 5A1945Z Respiratory Ventilation, 24-96 Consecutive Hours (ICD-10-PCS; 2017-07-13)
DX: A41.9 Sepsis, unspecified organism (principal); J18.9 Pneumonia, unspecified organism; J96.01 Acute respiratory failure with hypoxia; N17.9 Acute kidney failure, unspecified; I11.0 Hypertensive heart disease with heart failure; E87.2 Acidosis; J44.0 Chronic obstructive pulmonary disease with (acute) lower respiratory infection; F02.81 Dementia in other diseases classified elsewhere, unspecified severity, with behavioral disturbance; I50.32 Chronic diastolic (congestive) heart failure; D64.9 Anemia, unspecified; E11.9 Type 2 diabetes mellitus without complications; E44.0 Moderate protein-calorie malnutrition; E87.1 Hypo-osmolality and hyponatremia; J44.1 Chronic obstructive pulmonary disease with (acute) exacerbation; K21.9 Gastro-esophageal reflux disease without esophagitis; R65.20 Severe sepsis without septic shock; E66.01 Morbid (severe) obesity due to excess calories; E78.5 Hyperlipidemia, unspecified; I10 Essential (primary) hypertension; F41.9 Anxiety disorder, unspecified; I25.10 Atherosclerotic heart disease of native coronary artery without angina pectoris; Z95.5 Presence of coronary angioplasty implant and graft; G47.00 Insomnia, unspecified; Z79.82 Long term (current) use of aspirin; F17.210 Nicotine dependence, cigarettes, uncomplicated; G89.4 Chronic pain syndrome; Z79.84 Long term (current) use of oral hypoglycemic drugs; K59.00 Constipation, unspecified; N40.1 Benign prostatic hyperplasia with lower urinary tract symptoms; R33.8 Other retention of urine
CPT/HCPCS: 31500; 36600; 51702; 71010; 71275; 76937; 80048; 80053; 80202; 81001; 82805; 82948; 83605; 83735; 83880; 84100; 84155; 84484; 85007; 85025; 85027; 85610; 85730; 87040; 87070; 87086; 87205; 87449; 87641; 93005; 94002; 94003; 94150; 94620; 94640; 94664; 94667; 96365; 96367; 96368; 96375; J0330; J0360; J0456; J0692; J0696; J1120; J1644; J1940; J2060; J2405; J2920; J2930; J3010; J3370; J7030; J7040; J7050; J7070; J7512; Q9967

== ENCOUNTER 2017-11-14 14:08 | Emergency (ER) | payer MEDICARE, OTHER ==
[~2017-11-14] VITALS: Ht 167.6 cm; Wt 102.3 kg
[~2017-11-14 14:08] MED LIST changes: +ALBU0.08 INH; +ASPI-183 PO; -ASPI325T PO; -BROMSYP PO; -CYCL5TAB PO; -DIPH1TAB4 PO; +FURO20TA PO; +METO1TAB42 PO; -METO25TA6 PO; +MUPI2OIN TOPICAL; +NEBUKIT5; -OXYC1TAB63 PO; -PRED10PA PO; -TOPI1TAB36 PO; +TOPI50TA7 PO; +TRAM50TA PO; +TRIH2 PO; -VARE1PAK3 PO; -VENTAER INH; +WALKER GLIDE WH1 MI1
[2017-11-14 14:10] VITALS: BP 158/72; PULSE 72; RESP 12; TEMP 98.4; O2SAT 98
--- NOTE | 2017-11-14 16:08 | RADRPT ---
EXAM DATE/TIME: 11/14/2017 15:31 [facility] COMPARISON: CT BRAIN W/O CONTRAST, March 01, 2016, 11:34. INDICATIONS : Fall one week ago, continued pain to back of head and down neck. RADIATION DOSE: 50.18 CTDIvol (mGy) MEDICAL HISTORY : Dementia. Cardiovascular disease Hypertension. SURGICAL HISTORY : None. ENCOUNTER: Initial ACUITY: 1 week PAIN SCALE: 8/10 LOCATION: Bilateral occipital TECHNIQUE: Multiple contiguous axial images were obtained of the head. Using automated exposure control and adj ustment of the mA and/or kV according to patient size, radiation dose was kept as low as reasonably a chievable to obtain optimal diagnostic quality images. DICOM format image data is available electro nically for review and comparison. FINDINGS: CEREBRUM: The ventricles are normal for age. No evidence of midline shift, mass lesion, hemorrhage or acute in farction. No extra-axial fluid collections are seen. POSTERIOR FOSSA: The cerebellum and brainstem are intact. The 4th ventricle is midline. The cerebellopontine angle i s unremarkable. EXTRACRANIAL: The visualized portion of the orbits is intact. SKULL: The calvaria is intact. No evidence of skull fracture. Stable left occipital scalp soft tissue calci fied nodule. CONCLUSION: 1. No acute intracranial abnormality. Christopher Benz MD on November 14, 2017 at 16:05 Board Certified Radiologist. This report was verified electronically.
--- NOTE | 2017-11-14 16:25 | RADRPT ---
EXAM DATE/TIME: 11/14/2017 15:31 [facility] COMPARISON: No previous studies available for comparison. INDICATIONS : Fall one week ago; continued pain to posterior neck. RADIATION DOSE: 42.99 CTDIvol (mGy) MEDICAL HISTORY : Dementia. Cardiovascular disease Hypertension. SURGICAL HISTORY : None. ENCOUNTER: Initial ACUITY: 1 week PAIN SCALE: 8/10 LOCATION: posterior neck TECHNIQUE: Volumetric scanning of the cervical spine was performed. Multiplanar reconstructions in the sagittal, coronal and oblique axial planes were performed. Using automated exposure control and adjustment o f the mA and/or kV according to patient size, radiation dose was kept as low as reasonably achievable to obtain optimal diagnostic quality images. DICOM format image data is available electronically f or review and comparison. FINDINGS: There is normal sagittal spine alignment of the cervical spine. No anterolisthesis or retrolisthesis is present. The atlantoaxial relationship is within normal limits. There is no prevertebral soft tiss ue swelling present. No fracture or dislocation is identified. There is mild cervical kyphosis. Degen erative disc disease is present at C5-C6 through C7-T1. There is left facet arthrosis at C2-C3 with s evere left neural foraminal stenosis at this level. The visualized portions of the posterior fossa, paraspinous soft tissues, and upper lung zones demons trate no acute abnormality. CONCLUSION: 1. No acute cervical spine abnormality is identified. 2. Multilevel degenerative disc disease with severe left neural foraminal stenosis at C2-C3. Jose Laguerre MD on November 14, 2017 at 16:19 Board Certified Radiologist. This report was verified electronically.
--- NOTE | 2017-11-14 22:33 | PD ---
Physical Exam Date Seen by Provider: Nov 14, 2017 Time Seen by Provider: 17:06 Narrative 62-year-old male presents to the emergency department for evaluation of dizziness since a head injury that occurred 1 week ago. Patient tripped and fell hitting his head on a car. He is unsure if he had any loss of consciousness. He does report neck pain as well. Current pain is 8 out of 10. Data Data Last Documented VS Vital Signs Date Time Temp Pulse Resp B/P (MAP) Pulse Ox O2 Delivery O2 Flow Rate FiO2 11/14/17 17:06 11/14/17 14:10 98.4 [address] Brain W/O Iv Contrast(Rout) (11/14/17 ) Ct Cerv Spine W/O Contrast (11/14/17 ) MDM Supervised Visit with KATELYN: No Narrative Course 62-year-old male presents to the emergency department for evaluation of head injury and neck pain since a fall one week ago. Patient is initially seen in triage. CT of the brain and cervical spine are ordered and pending. Patient left AGAINST MEDICAL ADVICE before he could be placed in a medical bed. Diagnosis Primary Impression: Left against medical advice Additional Impression: Head injury Qualified Codes: S09.90XA - Unspecified injury of head, initial encounter Disposition: 07 AGAINST MEDICAL ADVICE Perla Leal Nov 14, 2017 22:33
[2017-11-16] MEDS ORDERED: OMEP40CA2 PO (20:13)
== END 2017-11-14 17:17 | disposition left against medical advice (07) ==
LOC: NED 14:08
DX: S09.90XA Unspecified injury of head, initial encounter (principal); W01.198A Fall on same level from slipping, tripping and stumbling with subsequent striking against other object, initial encounter
CPT/HCPCS: 70450; 72125; 99285

== ENCOUNTER 2017-11-18 11:27 | Emergency (ER) | payer OTHER, MEDICARE ==
[2017-11-18 11:30] VITALS: BP 153/68; PULSE 91; RESP 18; TEMP 98.6; O2SAT 96
[2017-11-18 12:38] LABS: BILIRUBIN, URINE NEG (NEG); BLOOD, URINE NEG (NEG); GLUCOSE,URINE NEG (NEG); KETONE, URINE NEG (NEG); NITRITE,URINE NEG (NEG); URINE COLOR LIGHT-YELLOW (YELLW/STRAW); URINE LEUKOCYTE ESTERASE NEG (NEG)
[2017-11-18 12:50] LABS: AUTOMATED NEUTROPHIL # 8.5 TH/MM3 (1.8-7.7); BASOPHIL % 0.4 % (0.0-2.0); EOSINOPHIL # 0.1 TH/MM3 (0-0.4); EOSINOPHIL % 0.6 % (0.0-4.0); HEMATOCRIT 34.7 % (39.0-51.0); HEMOGLOBIN 11.6 GM/DL (13.0-17.0); LYMPHOCYTE # 1.1 TH/MM3 (1.0-4.8); MEAN CELL VOLUME 89.9 FL (80.0-100.0); MEAN CORPUSCULAR HGB CONC 33.4 % (32.0-36.0); MEAN PLATELET VOLUME 8.3 FL (7.0-11.0); MONO % 5.3 % (0.0-8.0); MONOCYTE # 0.5 TH/MM3 (0-0.9); NEUT % 82.7 % (16.0-70.0); PLATELET COUNT 346 TH/MM3 (150-450); RED BLOOD COUNT 3.86 MIL/MM3 (4.50-5.90); RED CELL DISTRIBUTION WIDTH 13.2 % (11.6-17.2); WHITE BLOOD COUNT 10.3 TH/MM3 (4.0-11.0)
[2017-11-18 13:01] LABS: INTERNATIONAL NORMALIZED RATIO 1.1 RATIO; PROTHROMBIN TIME - PATIENT 11.4 SEC (9.8-11.6)
[2017-11-18 13:26] LABS: CHLORIDE 107 MEQ/L (98-107); SODIUM (NA) 140 MEQ/L (136-145)
[2017-11-18 14:12] LABS: ALBUMIN 3.3 GM/DL (3.4-5.0); ALKALINE PHOSPHATASE 78 U/L (45-117); AST (GOT) 13 U/L (15-37); BICARBONATE 23.3 MEQ/L (21.0-32.0); BLOOD UREA NITROGEN 7 MG/DL (7-18); CREATININE 0.83 MG/DL (0.60-1.30); GLOMERULAR FILTRATION RATE 93 ML/MIN (>89)
[2017-11-18 14:26] LABS: ALT (GPT) 17 U/L (12-78); CALCIUM 8.6 MG/DL (8.5-10.1); GLUCOSE,RANDOM 69 MG/DL (74-106)
[2017-11-18 14:27] LABS: TOTAL BILIRUBIN ADULT 0.4 MG/DL (0.2-1.0); TOTAL PROTEIN 6.8 GM/DL (6.4-8.2)
--- NOTE | 2017-11-18 17:05 | PD ---
HPI Chief Complaint: Medical Clearance Time Seen by Provider: 16:34 Travel History International Travel<30 days: No Contact w/Intl Traveler<30days: No Traveled to known affect area: No History of Present Illness HPI 62-year-old male complains of headache, neck pain, dizziness, Cough, nausea vomiting. Patient states that he fell out of bed about 2 weeks ago. Patient had persistent headache in neck pain in dizziness since then. Patient state that he has been walking slowly with a slow speech since he fell. Patient also complains of productive cough for the past week. Patient denies any chest pain or shortness of breath. Patient has history of diabetes and has been taking Metformin. Patient states that he has not been checking his blood sugar recently. Patient also has severe COPD, hypertension, hyperlipidemia. Patient denies any alcohol or illicit drug abuse. Patient with seen by personal physician after the fall and was seen in emergency room subsequently. Patient had CT scan of the brain and cervical spine done on November 14 , negative for acute pathology. Patient left AMA after the CT was done. Patient denies fever chills. Patient denies any focal weakness or numbness of the extremity. PFSH Past Medical History Arthritis: Yes Asthma: Yes Anxiety: Yes Depression: Yes ("WITH PSYCHOTIC FEATURES") Heart Rhythm Problems: No Cancer: No Cardiac Catheterization: Yes (4 CATH, 5 STENTS) Cardiovascular Problems: Yes (CARDIAC STENT) High Cholesterol: Yes Congestive Heart Failure: No Coronary Artery Disease: Yes Diabetes: Yes Patient Takes Glucophage: Yes Diminished Hearing: No Endocrine: Yes GERD: Yes Genitourinary: No Hypertension: Yes Immune Disorder: No Implanted Vascular Access Dvce: Yes Musculoskeletal: Yes (LUMBAR DEGENERATIVE DISC DISEASE/RADICULOPATHY) Neurologic: No Psychiatric: Yes Reproductive: No Respiratory: Yes (ASTHMA) Myocardial Infarction: Yes Seizures: No Thyroid Disease: No Past Surgical History Coronary Artery Bypass Graft: No Coronary Stent: Yes (X5) Joint Replacement: Yes (bilat knees ) Tonsillectomy: Yes Other Surgery: Yes (back sx) Social History Alcohol Use: No (PT DENIES) Tobacco Use: Yes Substance Use: No Allergies-Medications (Allergen,Severity, Reaction): Coded Allergies: duloxetine (Verified Adverse Reaction, Severe, Confusion, 10/08/17) Reported Meds & Prescriptions Reported Meds & Active Scripts Active Omeprazole 40 Mg Cap 40 Mg PO DAILY Tramadol (Tramadol HCl) 50 Mg Tab 50 Mg PO Q6H PRN Topiramate 50 Mg Tab 75 Mg PO BID Trihexyphenidyl (Trihexyphenidyl HCl) 2 Mg Tab 2 Mg PO BID Metoprolol Succinate ER 24 HR (Metoprolol Succinate) 25 Mg Tab 12.5 Mg PO DAILY Mupirocin Topical (Mupirocin) 2 % Oint 1 Applic TOPICAL BID 10 Days Pramipexole (Pramipexole Dihydrochloride) 0.5 Mg Tab 0.5 Mg PO BID Prinivil (Lisinopril) 20 Mg Tab 20 Mg PO BID Simvastatin 80 Mg Tab 80 Mg PO HS Nebulizer Kit/Tubing/Mout (N/A) 1 Kit Kit Kit .ROUTE DIRECTED Albuterol Neb (Albuterol Sulfate) 2.5 Mg/3 Ml Neb 2.5 Mg INH Q2HR NEB PRN [place] Wheels/5 Adj (Device) 1 Mis Mis Ea .ROUTE DIRECTED Fluticasone Nasal [place] 50 Mcg/Act Naspr 100 Mcg EACH NARE BID 50 mcg/spray Fluoxetine (Fluoxetine HCl) 20 Mg Capsule 20 Mg PO DAILY [employer] Contour Next Blood Test Strips (Blood Glucose Test Strips) 1 [place] 1 Strip .ROUTE TID Lancets 1 Mis Mis 1 Ea .ROUTE DIRECTED Metformin (Metformin HCl) 500 Mg Tab 500 Mg PO BID With a meal Reported Ranitidine 75 (Ranitidine HCl) 75 Mg Tab 75 Mg PO DAILY Take 30 to 60 minutes before eating food or drinking beverages that cause heartburn. Seroquel (Quetiapine Fumarate) 25 Mg Tab 25 Mg PO HS Nitroglycerin SL (Nitroglycerin) 0.4 Mg Subl 0.4 Mg SL DIRECTED PRN ONE TABLET UNDER THE TONGUE NEEDED FOR CHEST PAIN, MAY REPEAT EVERY FIVE MINUTES FOR A TOTAL OF 3 DOSES OR CALL 911 IF NO RELIEF Multiple Vitamin 1 Tab 1 Tab PO DAILY Aspirin 325 Mg Tab 325 Mg PO DAILY Review of Systems General / Constitutional: No: Fever Eyes: No: Visual changes HENT: Positive: Lightheadedness, No: Headaches Cardiovascular: No: Chest Pain or Discomfort Respiratory: No: Shortness of Breath Gastrointestinal: Positive: Nausea, Vomiting, No: Abdominal Pain Genitourinary: No: Dysuria Musculoskeletal: No: Pain Skin: No Rash Neurologic: No: Weakness Psychiatric: No: Depression Endocrine: No: Polydipsia Hematologic/Lymphatic: No: Easy Bruising Physical Exam Narrative GENERAL: Well-nourished, well-developed patient. SKIN: Focused skin assessment warm/dry. HEAD: Normocephalic. EYES: No scleral icterus. No injection or drainage. Pupils 2 mm equal reactive. NECK: Supple, trachea midline. No JVD or lymphadenopathy. Mild paravertebral tenderness on palpation. No meningismus. CARDIOVASCULAR: Regular rate and rhythm without murmurs, gallops, or rubs. RESPIRATORY: Breath sounds equal bilaterally. No accessory muscle use. Mild expiratory wheezes bilaterally. No rhonchi. GASTROINTESTINAL: Abdomen soft, non-tender, nondistended. MUSCULOSKELETAL: No cyanosis, or edema. BACK: Nontender without obvious deformity. No CVA tenderness. Neurologic exam: Patient awake alert oriented 3. No obvious focal neurological deficit. Data Data Last Documented VS Vital Signs Date Time Temp Pulse Resp B/P (MAP) Pulse Ox O2 Delivery O2 Flow Rate FiO2 11/18/17 11:30 98.6 91 18 153/68 (96) 96 Orders Orders Complete Blood Count With Diff (11/18/17 11:39) Comprehensive Metabolic Panel (11/18/17 11:39) Prothrombin Time / Inr (Pt) (11/18/17 11:39) Act Partial Throm Time (Ptt) (11/18/17 11:39) Urinalysis - C+S If Indicated (11/18/17 11:39) Drug Screen, Random Urine (11/18/17 11:39) Chest, Single Ap (11/18/17 16:51) Ondansetron Odt (Zofran Odt) (11/18/17 17:15) Labs Laboratory Tests Test 11/18/17 11:58 11/18/17 12:09 White Blood Count 10.3 TH/MM3 Red Blood Count 3.86 MIL/MM3 Hemoglobin 11.6 GM/DL Hematocrit 34.7 % Mean Corpuscular Volume 89.9 FL Mean Corpuscular Hemoglobin 30.0 PG Mean Corpuscular Hemoglobin Concent 33.4 % Red Cell Distribution Width 13.2 % Platelet Count 346 TH/MM3 Mean Platelet Volume 8.3 FL Neutrophils (%) (Auto) 82.7 % Lymphocytes (%) (Auto) 11.0 % Monocytes (%) (Auto) 5.3 % Eosinophils (%) (Auto) 0.6 % Basophils (%) (Auto) 0.4 % Neutrophils # (Auto) 8.5 TH/MM3 Lymphocytes # (Auto) 1.1 TH/MM3 Monocytes # (Auto) 0.5 TH/MM3 Eosinophils # (Auto) 0.1 TH/MM3 Basophils # (Auto) 0.0 TH/MM3 CBC Comment DIFF FINAL Differential Comment Prothrombin Time 11.4 SEC Prothromb Time International Ratio 1.1 RATIO Activated Partial Thromboplast Time 26.3 SEC Blood Urea Nitrogen 7 MG/DL Creatinine 0.83 MG/DL Random Glucose 69 MG/DL Total Protein 6.8 GM/DL Albumin 3.3 GM/DL Calcium Level 8.6 MG/DL Alkaline Phosphatase 78 U/L Aspartate Amino Transf (AST/SGOT) 13 U/L Alanine Aminotransferase (ALT/SGPT) 17 U/L Total Bilirubin 0.4 MG/DL Sodium Level 140 MEQ/L Potassium Level 3.4 MEQ/L Chloride Level 107 MEQ/L Carbon Dioxide Level 23.3 MEQ/L Anion Gap 10 MEQ/L Estimat Glomerular Filtration Rate 93 ML/MIN Urine Color LIGHT-YELLOW Urine Turbidity CLEAR Urine pH 7.0 Urine Specific [place] 1.003 Urine Protein NEG mg/dL Urine Glucose (UA) NEG mg/dL Urine Ketones NEG mg/dL Urine Occult Blood NEG Urine Nitrite NEG Urine Bilirubin NEG Urine Urobilinogen LESS THAN 2.0 MG/DL Urine Leukocyte Esterase NEG Urine RBC LESS THAN 1 /hpf Urine WBC LESS THAN 1 /hpf Microscopic Urinalysis Comment CATH-CULT NOT IND Urine Opiates Screen NEG Urine Barbiturates Screen NEG Urine Amphetamines Screen NEG Urine Benzodiazepines Screen POS Urine Cocaine Screen NEG Urine Cannabinoids Screen NEG [facility] Medical Decision Making Medical Screen Exam Complete: Yes Emergency Medical Condition: Yes Medical Record Reviewed: Yes Interpretation(s) Last Impressions Chest X-Ray 11/18/17 1651 Signed Impressions: Service Date/Time: Saturday, November 18, 2017 17:12 - CONCLUSION: No acute disease. No significant change has occurred. Alexandru Addison MD CBC WBC 10.3. Hemoglobin 11.6 hematocrit 34.7. 82 neutrophil. Potassium 3.4. Glucose 69. Urine drug screen positive for benzo. UAs negative. Differential Diagnosis Differential diagnosis including hypoglycemia, postconcussion syndrome, viral syndrome, bronchitis, pneumonia, electrolyte abnormality. Narrative Course 62-year-old male with headache, neck pain, dizziness, nausea vomiting, productive cough, walking slow an slow speech since a fall out of bed 2 weeks ago. Patient blood sugars low. Patient with given orange juice and Accu-Chek blood sugar subsequently. Zofran 4 mg ODT. Diagnosis Primary Impression: Hypoglycemia Additional Impression: Bronchitis Patient Instructions: General Instructions Additional Instructions: Z-Dieter as directed. Hold off on metformin. Check blood sugars daily. Follow- up with personal physician. Return if worse. Med/Other Pt SpecificInfo: Prescription(s) given Scripts Azithromycin (Zithromax Z-Dieter) 250 Mg Dspk 250 MG PO DIRECTED for Infection, #1 DSPK 0 Refills 500 MG (2 tabs) day 1, then 1 tab days 2-5. Prov: Bassam Cornell MD 11/18/17 Disposition: 01 DISCHARGE HOME Condition: Stable Bassam Cornell MD Nov 18, 2017 17:05
[2017-11-18] MEDS ORDERED: ONDANSETRON ODT 4 MG TAB PO ONE (17:15)
--- NOTE | 2017-11-18 17:33 | RADRPT ---
EXAM DATE/TIME: 11/18/2017 17:12 [facility] COMPARISON: CHEST SINGLE AP, July 16, 2017, 5:00. INDICATIONS : Cough, congestion, shortness of breath. MEDICAL HISTORY : Hypertension. Diabetes mellitus type II. Smoker. SURGICAL HISTORY : Coronary artery stent. ENCOUNTER: Initial ACUITY: 1 week PAIN SCORE: 0/10 LOCATION: Bilateral chest FINDINGS: A single view of the chest demonstrates the lungs to be symmetrically aerated without evidence of mas s, infiltrate or effusion. The cardiomediastinal contours suggests borderline left ventricular cardi omegaly.. Osseous structures are intact. CONCLUSION: No acute disease. No significant change has occurred. Alexandru Addison MD on November 18, 2017 at 17:29 Board Certified Radiologist. This report was verified electronically.
[2017-11-18] MEDS ORDERED: ZITHTAB PO (18:13)
== END 2017-11-18 18:54 | disposition home or self-care (01) ==
LOC: NEPD 11:27
DX: E11.649 Type 2 diabetes mellitus with hypoglycemia without coma (principal); J44.9 Chronic obstructive pulmonary disease, unspecified; E78.00 Pure hypercholesterolemia, unspecified; I10 Essential (primary) hypertension; I25.10 Atherosclerotic heart disease of native coronary artery without angina pectoris; I25.2 Old myocardial infarction; K21.9 Gastro-esophageal reflux disease without esophagitis; F32.9 Major depressive disorder, single episode, unspecified; M54.2 Cervicalgia; R42 Dizziness and giddiness; R06.02 Shortness of breath; Z72.0 Tobacco use; Z79.84 Long term (current) use of oral hypoglycemic drugs; Z79.899 Other long term (current) drug therapy
CPT/HCPCS: 71045; 80053; 80307; 81001; 85025; 85610; 85730; 99284

== ENCOUNTER 2017-12-19 01:13 | Emergency (ER) | payer OTHER, MEDICARE ==
[~2017-12-19 01:13] MED LIST changes: -FURO20TA PO; +ZITHTAB PO
[2017-12-19 01:14] VITALS: BP 237/109; PULSE 96; RESP 18; TEMP 97.8; O2SAT 100
[2017-12-19 01:48] VITALS: BP 142/92; PULSE 79; RESP 17; O2SAT 100
[2017-12-19] MEDS ORDERED: NITR400A5 SL (01:57)
[2017-12-19 02:37] LABS: AUTOMATED NEUTROPHIL # 5.8 TH/MM3 (1.8-7.7); BASOPHIL # 0.1 TH/MM3 (0-0.2); BASOPHIL % 0.8 % (0.0-2.0); EOSINOPHIL # 0.1 TH/MM3 (0-0.4); EOSINOPHIL % 1.1 % (0.0-4.0); HEMATOCRIT 39.1 % (39.0-51.0); HEMOGLOBIN 13.1 GM/DL (13.0-17.0); LYMPH % 19.2 % (9.0-44.0); LYMPHOCYTE # 1.5 TH/MM3 (1.0-4.8); MEAN CELL VOLUME 87.2 FL (80.0-100.0); MEAN CORPUSCULAR HEMOGLOBIN 29.2 PG (27.0-34.0); MEAN CORPUSCULAR HGB CONC 33.5 % (32.0-36.0); MEAN PLATELET VOLUME 8.5 FL (7.0-11.0); MONO % 6.5 % (0.0-8.0); MONOCYTE # 0.5 TH/MM3 (0-0.9); NEUT % 72.4 % (16.0-70.0); PLATELET COUNT 359 TH/MM3 (150-450); RED BLOOD COUNT 4.48 MIL/MM3 (4.50-5.90); RED CELL DISTRIBUTION WIDTH 14.8 % (11.6-17.2)
--- NOTE | 2017-12-19 02:48 | RADRPT ---
EXAM DATE/TIME: 12/19/2017 02:32 [facility] COMPARISON: CHEST SINGLE AP, November 18, 2017, 17:12. INDICATIONS : Dizziness and elevated BP MEDICAL HISTORY : Hypertension. Diabetes mellitus type II. Hypercholesterolemia. CAD, GERD, [place] SURGICAL HISTORY : Tonsillectomy. Total knee replacement, left. Total knee replacement, right. Cardiac Cath x 5 ENCOUNTER: Initial ACUITY: 1 day PAIN SCORE: 8/10 LOCATION: Bilateral chest FINDINGS: The lungs are clear without infiltrate, nodule, or mass. There is no appreciable pleural effusion fo r technique. Heart and mediastinum are unremarkable. Chronic degenerative changes are present in the left shoulder and not changed. CONCLUSION: No acute cardiopulmonary disease. Otto Still MD on December 19, 2017 at 2:46 Board Certified Radiologist. This report was verified electronically.
[2017-12-19 03:04] LABS: ALBUMIN 3.6 GM/DL (3.4-5.0); ALKALINE PHOSPHATASE 99 U/L (45-117); ALT (GPT) 24 U/L (12-78); AST (GOT) 41 U/L (15-37); BICARBONATE 28.6 MEQ/L (21.0-32.0); BLOOD UREA NITROGEN 3 MG/DL (7-18); CALCIUM 8.7 MG/DL (8.5-10.1); CHLORIDE 105 MEQ/L (98-107); CREATININE 0.74 MG/DL (0.60-1.30); GLOMERULAR FILTRATION RATE 106 ML/MIN (>89); GLUCOSE,RANDOM 89 MG/DL (74-106); MAGNESIUM 2.1 MG/DL (1.5-2.5); SODIUM (NA) 139 MEQ/L (136-145); TOTAL BILIRUBIN ADULT 0.9 MG/DL (0.2-1.0); TOTAL PROTEIN 7.3 GM/DL (6.4-8.2); TROPONIN I LESS THAN 0.02 NG/ML (0.02-0.05)
[2017-12-19] MEDS ORDERED: DIAZEPAM 5 MG TAB PO ONE (03:15)
[2017-12-19 03:45] VITALS: BP 197/93; PULSE 75; RESP 15; O2SAT 99
[2017-12-19] MEDS ORDERED: MECLIZINE HCL 25 MG TAB PO ONE (03:45)
[2017-12-19 04:10] VITALS: BP 170/88; PULSE 77; RESP 18; O2SAT 99
[2017-12-19] MEDS ORDERED: hydrALAZINE HCL 20 MG/ML VIAL IV PUSH ONE (04:15)
--- NOTE | 2017-12-19 04:21 | PD ---
HPI Chief Complaint: Hypertension Time Seen by Provider: 01:45 Travel History International Travel<30 days: No Contact w/Intl Traveler<30days: No Traveled to known affect area: No History of Present Illness HPI Patient is a 62-year-old male who has history of hypertension he also had a pneumonia that led to sepsis that led to respiratory failure intubation. Apparently it was in August when he was intubated and had been given Haldol to sedate him while he was in the ICU and there is since then he has had a nonstop headshaking tremor possible tardive dyskinesia since the Haldol. She comes in tonight complaining that he feels like he is as if he drank an entire jug of whiskey he says because the room was spinning and feels dizzy. His initially his pressure is 205 in 1 arm and 143 in the other arm. Apparently after further investigation he just had a CT of his chest at [place] [facility] and I am able to access that image which shows normal aortic no signs of dissection that would explain his arm discrepancies in the blood pressure cuff. Patient is rocking back and forth with his head to my entire exam. The head he says is constant but the sensation that everything is spinning is new possibly he has a labyrinthitis denies any recent URI or cough or congestion no chest pain no shortness of breath PFSH Past Medical History Arthritis: Yes Asthma: Yes Anxiety: Yes Depression: Yes ("WITH PSYCHOTIC FEATURES") Heart Rhythm Problems: No Cancer: No Cardiac Catheterization: Yes (4 CATH, 5 STENTS) Cardiovascular Problems: Yes High Cholesterol: Yes Congestive Heart Failure: No Coronary Artery Disease: Yes Diabetes: Yes Patient Takes Glucophage: Yes Diminished Hearing: No Endocrine: Yes GERD: Yes Genitourinary: No Hypertension: Yes Immune Disorder: No Implanted Vascular Access Dvce: Yes Musculoskeletal: Yes (LUMBAR DEGENERATIVE DISC DISEASE/RADICULOPATHY) Neurologic: No Psychiatric: Yes Reproductive: No Respiratory: Yes (ASTHMA) Myocardial Infarction: Yes Seizures: No Thyroid Disease: No Past Surgical History Coronary Artery Bypass Graft: No Coronary Stent: Yes (X5) Joint Replacement: Yes (bilat knees ) Tonsillectomy: Yes Other Surgery: Yes (back sx) Social History Alcohol Use: No (PT DENIES) Tobacco Use: Yes Substance Use: No Allergies-Medications (Allergen,Severity, Reaction): Coded Allergies: haloperidol (Verified Allergy, Unknown, 12/19/17) duloxetine (Verified Adverse Reaction, Severe, Confusion, 12/19/17) Reported Meds & Prescriptions Reported Meds & Active Scripts Active Meclizine (Meclizine HCl) 25 Mg Tab 25 Mg PO TID PRN Valium (Diazepam) 2 Mg Tab 2 Mg PO TID PRN Clonidine (Clonidine HCl) 0.1 Mg Tab 0.1 Mg PO BID Omeprazole 40 Mg Cap 40 Mg PO DAILY Trihexyphenidyl (Trihexyphenidyl HCl) 2 Mg Tab 2 Mg PO BID Metoprolol Succinate ER 24 HR (Metoprolol Succinate) 25 Mg Tab 12.5 Mg PO DAILY Mupirocin Topical (Mupirocin) 2 % Oint 1 Applic TOPICAL BID 10 Days Pramipexole (Pramipexole Dihydrochloride) 0.5 Mg Tab 0.5 Mg PO BID Prinivil (Lisinopril) 20 Mg Tab 20 Mg PO BID Simvastatin 80 Mg Tab 80 Mg PO HS Nebulizer Kit/Tubing/Mout (N/A) 1 Kit Kit Kit .ROUTE DIRECTED Albuterol Neb (Albuterol Sulfate) 2.5 Mg/3 Ml Neb 2.5 Mg INH Q2HR NEB PRN [place] Wheels/5 Adj (Device) 1 Mis Mis Ea .ROUTE DIRECTED Fluticasone Nasal Meraux 50 Mcg/Act Naspr 100 Mcg EACH NARE BID 50 mcg/spray Fluoxetine (Fluoxetine HCl) 20 Mg Capsule 20 Mg PO DAILY Bianca Contour Next Blood Test Strips (Blood Glucose Test Strips) 1 [place] 1 Strip .ROUTE TID Lancets 1 Mis Mis 1 Ea .ROUTE DIRECTED Metformin (Metformin HCl) 500 Mg Tab 500 Mg PO BID With a meal Reported Nitroglycerin Lingual Meraux (Nitroglycerin) 400 Mcg/Act Meraux 1 Meraux SL DIRECTED PRN ONE SPRAY NEEDED FOR CHEST PAIN, MAY REPEAT EVERY FIVE MINUTES FOR A TOTAL OF 3 DOSES OR CALL 911 IF NO RELIEF Ranitidine 75 (Ranitidine HCl) 75 Mg Tab 75 Mg PO DAILY Take 30 to 60 minutes before eating food or drinking beverages that cause heartburn. Seroquel (Quetiapine Fumarate) 25 Mg Tab 25 Mg PO HS Multiple Vitamin 1 Tab 1 Tab PO DAILY Aspirin 325 Mg Tab 325 Mg PO DAILY Review of Systems Except as stated in HPI: all other systems reviewed are Neg General / Constitutional: No: Fever, Chills (Spinning sensation "feel like I drank a whole jugular whiskey ") Neurologic: Positive: Dizziness, Tremor (constant head motion) Physical Exam Narrative GENERAL: constant head motion from side to side ( reports that this is a side effect of the haldol he was sedated with when he was ICU intubated ) SKIN: Warm and dry. HEAD: Constant motion rotatory and sided to side motion . EYES: Pupils equal and round. No scleral icterus. No injection or drainage. ENT: No nasal bleeding or discharge. Mucous membranes pink and moist. NECK: Trachea midline. No JVD. CARDIOVASCULAR: Regular rate and rhythm. Bp unequal in right arm 140 SBP Left arm 205 (CT was done yesterday for the same Aorta was normal no dissection seen) RESPIRATORY: No accessory muscle use. Clear to auscultation. Breath sounds equal bilaterally. GASTROINTESTINAL: Abdomen soft, non-tender, nondistended. Hepatic and splenic margins not palpable. MUSCULOSKELETAL: Extremities without clubbing, cyanosis, or edema. No obvious deformities. NEUROLOGICAL: Awake and alert. No obvious cranial nerve deficits. Motor grossly within normal limits. Five out of 5 muscle strength in the arms and legs. Normal speech. PSYCHIATRIC: Appropriate mood and affect; insight and judgment normal. Data Data Last Documented VS Vital Signs Date Time Temp Pulse Resp B/P (MAP) Pulse Ox O2 Delivery O2 Flow Rate FiO2 12/19/17 06:26 12/19/17 06:00 78 16 98 Room Air 12/19/17 01:14 97.8 Orders Orders Complete Blood Count With Diff (12/19/17 02:12) Comprehensive Metabolic Panel (12/19/17 02:12) Creatine Kinase (Cpk) (12/19/17 02:12) Troponin I (12/19/17 02:12) Lipase (12/19/17 02:12) Magnesium (Mg) (12/19/17 02:12) Thyroid Stimulating Hormone (12/19/17 02:12) Chest, Pa & Lat (12/19/17 02:12) Drug Screen, Random Urine (12/19/17 02:12) Alcohol (Ethanol) (12/19/17 02:12) Electrocardiogram (12/19/17 ) Diazepam (Valium) (12/19/17 03:15) Meclizine (Antivert) (12/19/17 03:45) Hydralazine Inj (Apresoline Inj) (12/19/17 04:15) Clonidine (Catapres) (12/19/17 05:30) Ed Discharge Order (12/19/17 05:56) Labs Laboratory Tests Test 12/19/17 02:10 12/19/17 02:20 White Blood Count 8.0 TH/MM3 Red Blood Count 4.48 MIL/MM3 Hemoglobin 13.1 GM/DL Hematocrit 39.1 % Mean Corpuscular Volume 87.2 FL Mean Corpuscular Hemoglobin 29.2 PG Mean Corpuscular Hemoglobin Concent 33.5 % Red Cell Distribution Width 14.8 % Platelet Count 359 TH/MM3 Mean Platelet Volume 8.5 FL Neutrophils (%) (Auto) 72.4 % Lymphocytes (%) (Auto) 19.2 % Monocytes (%) (Auto) 6.5 % Eosinophils (%) (Auto) 1.1 % Basophils (%) (Auto) 0.8 % Neutrophils # (Auto) 5.8 TH/MM3 Lymphocytes # (Auto) 1.5 TH/MM3 Monocytes # (Auto) 0.5 TH/MM3 Eosinophils # (Auto) 0.1 TH/MM3 Basophils # (Auto) 0.1 TH/MM3 CBC Comment DIFF FINAL Differential Comment Blood Urea Nitrogen 3 MG/DL Creatinine 0.74 MG/DL Random Glucose 89 MG/DL Total Protein 7.3 GM/DL Albumin 3.6 GM/DL Calcium Level 8.7 MG/DL Magnesium Level 2.1 MG/DL Alkaline Phosphatase 99 U/L Aspartate Amino Transf (AST/SGOT) 41 U/L Alanine Aminotransferase (ALT/SGPT) 24 U/L Total Bilirubin 0.9 MG/DL Sodium Level 139 MEQ/L Potassium Level 3.8 MEQ/L Chloride Level 105 MEQ/L Carbon Dioxide Level 28.6 MEQ/L Anion Gap 5 MEQ/L Estimat Glomerular Filtration Rate 106 ML/MIN Total Creatine Kinase 286 U/L Troponin I LESS THAN 0.02 NG/ML Lipase 134 U/L Thyroid Stimulating Hormone 3rd Gen 2.400 uIU/ML Ethyl Alcohol Level LESS THAN 3 MG/DL Urine Opiates Screen NEG Urine Barbiturates Screen NEG Urine Amphetamines Screen NEG Urine Benzodiazepines Screen NEG Urine Cocaine Screen NEG Urine Cannabinoids Screen NEG [facility] Medical Decision Making Medical Screen Exam Complete: Yes Emergency Medical Condition: Yes Interpretation(s) EKG is normal sinus rhythm at a rate of 73 bpm there is no ectopy there is no depressions or ST elevation. Normal EKG Differential Diagnosis Differential diagnosis includes tardive dyskinesia causing him to constantly shake his head and possibly has a virus is causing him to have a mild labyrinthitis peripheral benign vertigo Valium and meclizine that helped alleviate his symptoms EKG chest x-ray reviewing his CT from chest from yesterday as well as reviewing his labs which are negative troponin normal TSH safe to discharge him home with meclizine and Valium for benign positional vertigo Narrative Course I reviewed patient's CT that he had done [place] only yesterday there was no issue with the aorta of the lungs was just atherosclerotic disease of his vessels but the great vessels mediastina aortic arch all normal no signs of dissection Diagnosis Primary Impression: BPV (benign positional vertigo) Qualified Codes: H81.10 - Benign paroxysmal vertigo, unspecified ear Additional Impression: Dizziness Scripts Meclizine (Meclizine) 25 Mg Tab 25 MG PO TID Y for VERTIGO, #20 TAB 0 Refills Prov: Demetris Aguilar MD 12/19/17 Diazepam (Valium) 2 Mg Tab 2 MG PO TID Y for DIZZINESS, #12 TAB 0 Refills Prov: Demetris Aguilar MD 12/19/17 Clonidine (Clonidine) 0.1 Mg Tab 0.1 MG PO BID for Blood Pressure Management, #20 TAB 0 Refills Prov: Demetris Aguilar MD 12/19/17 Disposition: 01 DISCHARGE HOME Condition: Good Demetris Aguilar MD Dec 19, 2017 04:21
[2017-12-19 04:23] VITALS: BP 167/78; PULSE 80; RESP 17; O2SAT 100
[2017-12-19] MEDS ORDERED: cloNIDine HCL 0.1 MG TAB PO ONE (05:30)
[2017-12-19] MEDS ORDERED: DIAZ2 PO (05:40)
[2017-12-19] MEDS ORDERED: CLON0.1T PO (05:40)
[2017-12-19] MEDS ORDERED: MECL-62 PO (05:41)
[2017-12-19 06:00] VITALS: BP 160/80; PULSE 78; RESP 16; O2SAT 98
--- NOTE | 2017-12-20 00:04 | EKG ---
Date Performed: 12/19/2017 Time Performed: 02:16:05 PTAGE: 62 years EKG: Sinus rhythm POSSIBLE LEFT ATRIAL ENLARGEMENT SEPTAL Q WAVES ABNORMAL ECG Compared to prior tracing, rate slower DOCTOR: Amisha Bianchi Interpretating Date/Time 12/20/2017 00:02:48
== END 2017-12-19 06:27 | disposition home or self-care (01) ==
LOC: NEPC 01:13
DX: H81.10 Benign paroxysmal vertigo, unspecified ear (principal); R25.1 Tremor, unspecified; R94.31 Abnormal electrocardiogram [ECG] [EKG]; I10 Essential (primary) hypertension; E11.9 Type 2 diabetes mellitus without complications; E78.00 Pure hypercholesterolemia, unspecified; K21.9 Gastro-esophageal reflux disease without esophagitis; J45.909 Unspecified asthma, uncomplicated; F41.8 Other specified anxiety disorders; I25.10 Atherosclerotic heart disease of native coronary artery without angina pectoris; I25.2 Old myocardial infarction; Z72.0 Tobacco use; Z79.899 Other long term (current) drug therapy; Z79.84 Long term (current) use of oral hypoglycemic drugs; Z87.39 Personal history of other diseases of the musculoskeletal system and connective tissue
CPT/HCPCS: 71046; 80053; 80307; 82550; 83690; 83735; 84443; 84484; 85025; 93005; 96374; 99285; J0360